=== PATIENT | male | born 1965 | race Caucasian/White ===

== ENCOUNTER 2023-11-10 15:30 | Outpatient (OUT) | payer OTHER, SELFPAY ==
[2023-11-10 16:21] LABS: Basophils Percent Auto 0.5 % (0.2-2.0); Eosinophils Absolute Auto 0.2 10^3/uL (0.0-0.7); Hematocrit 42.3 % (42.0-54.0); Hemoglobin 14.5 g/dL (14.0-18.0); Lymphocytes Absolute Auto 1.1 10^3/uL (1.2-3.8); Lymphocytes Percent Auto 29.1 % (20.5-60.0); Mean Corpuscular HGB Conc 34.3 g/dL (29.9-35.2); Mean Corpuscular Hemoglobin 32.2 pg (25.9-34.0); Mean Corpuscular Volume 93.8 fL (80.0-94.0); Monocytes Absolute Auto 0.6 10^3/uL (0.3-0.8); Monocytes Percent Auto 16.2 % (1.7-12.0); Neutrophils Absolute Auto 1.9 10^3/uL (1.4-6.5); Neutrophils Percent Auto 50.2 % (43.0-75.0); Platelet Count 164 10^3/uL (150-450); Red Blood Count 4.51 10^6/uL (4.70-6.10); Red Cell Distribution Width 11.8 % (11.0-15.0); White Blood Count 3.7 10^3/uL (4.0-11.0)
[2023-11-10 16:49] LABS: Estimated Average Glucose 157 mg/dL; Glycohemoglobin A1C 7.1 % (4.5-6.2)
[2023-11-10 17:01] LABS: Prostate Specific Antigen Scrn 0.48 ng/mL (<=4.00)
[2023-11-10 17:02] LABS: Alanine Aminotransferase 86 U/L (16-63); Alkaline Phosphatase 46 U/L (46-116); Anion Gap 11.1; Aspartate Amino Transferase 42 U/L (15-37); BUN Creatinine Ratio 17.2; Bilirubin Total 0.7 mg/dL (0.2-1.0); Calcium 8.8 mg/dL (8.5-10.1); Carbon Dioxide 28.3 mmol/L (21.0-32.0); Chloride 100 mmol/L (98-107); Chol HDL Ratio 3.3; Cholesterol 170 mg/dL (<=200); Estimated GFR (African America >60 (>=60); Estimated GFR (Non-African Ame >60 (>=60); Free T3 2.66 pg/mL (2.18-3.98); Globulin 3.9 g/dL; Glucose 82 mg/dL (74-106); HDL Cholesterol 52 mg/dL (40-60); LDL Cholesterol Calculated 100.2 mg/dL; Potassium 4.4 mmol/L (3.5-5.1); Sodium 135 mmol/L (136-145); Thyroid Stimulating Hormone 1.583 uIU/mL (0.358-3.740); Total Protein 7.9 g/dL (6.4-8.2); Triglycerides 89 mg/dL (<=150); VLDL CHOLESTEROL 17.8 mg/dL
[2023-11-13 10:07] LABS: Insulin 18.8 uIU/mL (2.6-24.9)
== END 2023-11-10 15:31 | disposition home or self-care (01) ==
PROVIDERS: PCP Family Medicine; Visit Provider Family Medicine
DX: Z00.00 Encounter for general adult medical examination without abnormal findings (principal)
CPT/HCPCS: 36415; 80053; 80061; 83036; 83525; 84436; 84443; 84481; 85025; G0103

== ENCOUNTER 2024-08-22 14:58 | Outpatient (OUT) | payer OTHER, SELFPAY ==
--- OUTSIDE RECORDS SUMMARY | 2024-08-22 15:14 | XMS_ITS | CCD ---
Author Organization [facility] Care Team Providers Care Cigar Making Supervisor Name Role Phone Micha Martinez Unavailable Unavailable Unavailable Giselle Walker Unavailable VITOR ., DR MUSE Admitting Unavailable HOY ., DR MUSE Attending Unavailable HOY ., DR MUSE Primary Care Unavailable HOY ., DR MUSE Consulting Unavailable DUTCH HAMM Consulting Unavailable HOY ., DR MUSE Admitting Unavailable HOY ., DR MUSE Attending Unavailable HOY ., DR MUSE Primary Care Unavailable HOY ., DR MUSE Consulting Unavailable ONI, DR YOLETTE Faust Consulting Unavailable HOY ., DR MUSE Admitting Unavailable HOY ., DR MUSE Attending Unavailable HOY ., DR MUSE Primary Care Unavailable HOY ., DR MUSE Consulting Unavailable HOY ., DR MUSE Admitting Unavailable HOY ., DR MUSE Attending Unavailable HOY ., DR MUSE Primary Care Unavailable HOY ., DR MUSE Consulting Unavailable Maynor COULTER Attending Unavailable Micha Martinez Primary Care Physician Allergies Allergy Classification Reported Allergen(s) Allergy Type Date of Onset Reaction(s) Facility (1 source) No Known Medication Allergies; Translations: [No Known Medication Allergies] Propensity to adverse reactions (disorder) [facility] Medications Current Medications Medication Drug Class(es) Dates Sig (Normalized) Sig (Original) [id number] 200 actuat albuterol 0.09 mg/actuat metered dose inhaler (1 source) beta2-Adrenergic Agonist Start: 2 take 2 puff(s) by inhalation every four to six hours as needed Albuterol Sulfate HFA 108 (90 Base) MCG/ACT 2 puffs as needed Inhalation every 4-6 hours for 14 days Aug, Active dextromethorphan hydrobromide 1.5 mg/ml / pyrilamine maleate 1.5 mg/ml oral solution (1 source) Uncompetitive W-puzssj-[place] te Receptor Antagonist, Sigma-1 Agonist Start: 2 take 10 mL by mouth every eight hours [place] DM 7.5-7.5 MG/5ML 10 mL Orally every 8 hours for 5 days Aug, Active methylPREDNISolone 4 mg oral tablet (1 source) Corticosteroid Start: 2 methylPREDNISolone 4 MG as directed Orally for daily dose take half with breakfast, half with dinner for 6 days Aug, Active Completed/Discontinued Medications Medication Drug Class(es) Dates Sig (Normalized) Sig (Original) Allergy TABS (3 sources) Allergy TABS Osiel ntity: 0 Refills: 0 Ordered: 29-Sep-2021 DO Active Problems Active Problems Problem Classification Problem Date Documented Da te Episodic/Chronic Abdominal pain (4 sources) Left upper quadrant pain; Translations: [LEFT UPPER QUADRANT PAIN] Onset: 12-28-2022 Episodic Acute bronchitis (1 source) Acute bronchitis due to other specified organisms Episodic Diabetes mellitus without complication (1 source) Diabetes mellitus without complication 08-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 Diverticulosis and diverticulitis (1 source) Diverticular disease of colon Onset: 07-11-2011 08-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 Other liver diseases (1 source) Chronic nonalcoholic liver disease Onset: 07-11-2011 08-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 Other nutritional; endocrine; and metabolic disorders (1 source) Body mass index 30+ - obesity 08-21-2024 Chronic Other nutritional; endocrine; and metabolic disorders (1 source) Obesity caused by energy imbalance 08-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 Other screening for suspected conditions (not mental disorders or infectious disease) (2 sources) Encounter for screening for malignant neoplasm of prostate; Translations: [Screening for malignant neoplasm of colon done] Onset: 11-14-2022 Episodic Other upper respiratory disease (5 sources) Nasal congestion; Translations: [Other disease of nasal cavity and sinuses] Episodic Other upper respiratory disease (6 sources) Deviated nasal septum; Translations: [Deviated nasal septum] 08-14-2024 Episodic Other upper respiratory disease (5 sources) Incompetence of nasal valve; Translations: [Other disease of nasal cavity and sinuses] Episodic Other upper respiratory infections (5 sources) Recurrent sinusitis; Translations: [Unspecified sinusitis (chronic)] Chronic Other upper respiratory infections (2 sources) Pain in throat; Translations: [Acute pharyngitis, unspecified] Episodic Residual codes; unclassified (1 source) Sleep apnea 08-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 Unclassified (1 source) Patient encounter status 08-21-2024 Past or Other Problems Problem Classification Problem Date Documented Da te Episodic/Chronic Pleurisy; pneumothorax; pulmonary collapse (4 sources) Pleurisy; Translations: [PLEURISY] Onset: 08-04-2022 Episodic Unclassified (1 source) Contact with and (suspected) exposure to covid-19 Z20.822 Results Test Name Value Interpretation Reference Range Facility US SINGLE QUAD RT UPPERon US SINGLE QUAD RT UPPER EXAM: US SINGLE QUAD RT UPPER HISTORY: .. Pain. COMPARISON: None. TECHNIQUE: Grayscale and color imaging was performed FINDINGS: The pancreas appears normal. Scanning of the liver demonstrates increased echogenicity of liver consistent with fatty infiltration of the liver. In the right lobe liver near the gallbladder fossa there was a small area of hypoechogenicity consistent with focal fatty sparing. Color-flow is noted in the portal and hepatic veins. Common bile duct measures 3 mm. Scanning of the gallbladder demonstrates no stones or sludge. No gallbladder wall thickening is noted. Patient had no pain upon scanning over the gallbladder. Right kidney measures 11.5 x 5.8 x 5.3 cm. Color-flow is noted. No solid renal cortical masses or hydronephrosis is noted. No fluid is noted in the right upper quadrant. IMPRESSION: 1 increased echogenicity of liver consistent with fatty infiltration of the liver. There was a small area of hypoechogenicity in the right lobe liver near the gallbladder fossa most consistent with focal fatty sparing. 2. The remainder of the right upper quadrant was unremarkable. Electronically authenticated by: DUTCH HAMM Date: 2022-12-28 10:37 Normal [facility] [place] 19-9on 12-22-2022 [place] 19-9 11 U/mL Normal 0-35 [facility] Comment on above: Result Comment: [employer] Electrochemiluminescence Immunoassay (ECLIA) . Values obtained with different assay methods or kits cannot be used interchangeably. Results cannot be interpreted as absolute evidence of the presence or absence of malignant disease. Performed By: #### C A 19,9 #### [facility] [address] [place] [address] Dr. Harika Valencia AMYLASEon 12-21-2022 Amylase [Catalytic activity/Vol] 50 U/L Normal 25-115 [facility] Comment on above: Performed By: #### L IPA, CMP, AUNDREA #### [facility] [address] [place] [address] Dr. Harika Valencia CBC AUTO DIFFon 12-21-2022 BASO # 0.0 103/ul Normal 0.0-0.1 [facility] Comment on above: Performed By: #### C BC #### [facility] [address] [place] [address] Dr. Harika Valencia Basophils/100 WBC (Bld) 0.4 % Normal 0.2-2.0 [facility] Comment on above: Performed By: #### C BC #### [facility] [address] [place] [address] Dr. Harika Valencia EO # 0.1 103/ul Normal 0.0-0.7 [facility] Comment on above: Performed By: #### C BC #### [facility] [address] [place] [address] Dr. Harika Valencia Eosinophils/100 WBC (Bld) 1.6 % Normal 0.9-7.0 [facility] Comment on above: Performed By: #### C BC #### [facility] [address] [place] [address] Dr. Harika Valencia Erythrocyte distribution width (RBC) [Ratio] 12.0 % Normal 11.0-15.0 [facility] Comment on above: Performed By: #### C BC #### [facility] [address] [place] [address] Dr. Harika Valencia Hematocrit (Bld) [Volume fraction] 46.4 % Normal 42.0-54.0 [facility] Comment on above: Performed By: #### C BC #### [facility] [address] [place] [address] Dr. Harika Valencia Hemoglobin (Bld) [Mass/Vol] 15.2 g/dL Normal 14.0-18.0 [facility] Comment on above: Performed By: #### C BC #### [facility] [address] [place] [address] Dr. Harika Valencia IG # 0.01 10e3/ul Normal 0.00-0.03 [facility] Comment on above: Performed By: #### C BC #### [facility] [address] [place] [address] Dr. Harika Valencia IG % 0.2 % Normal 0.0-0.5 [facility] Comment on above: Performed By: #### C BC #### [facility] [address] [place] [address] Dr. Harika Valencia LYMPH # 1.8 103/ul Normal 1.2-3.8 [facility] Comment on above: Performed By: #### C BC #### [facility] [address] [place] [address] Dr. Harika Valencia Lymphocytes/100 WBC (Bld) 35.1 % Normal 20.5-60.0 [facility] Comment on above: Performed By: #### C BC #### [facility] [address] [place] [address] Dr. Harika Valencia MANUAL DIFF REQ NO Normal [facility] Comment on above: Performed By: #### C BC #### [facility] [address] [place] [address] Dr. Harika Valencia MCH (RBC) [Entitic mass] 31.5 pg Normal 25.9-34.0 [facility] Comment on above: Performed By: #### C BC #### [facility] [address] [place] [address] Dr. Harika Valencia MCHC (RBC) [Mass/Vol] 32.8 g/dL Normal 29.9-35.2 [facility] Comment on above: Performed By: #### C BC #### [facility] [address] [place] [address] Dr. Harika Valencia MCV (RBC) [Entitic vol] 96.1 fL Critically high 80.0-94.0 [facility] Comment on above: Performed By: #### C BC #### [facility] [address] [address] [address] Harika Valencia MONO # 0.4 103/ul Normal 0.3-0.8 [facility] Comment on above: Performed By: #### C BC #### [facility] [address] [address] [address] Harika Valencia Monocytes/100 WBC (Bld) 8.0 % Normal 1.7-12.0 [facility] Comment on above: Performed By: #### C BC #### [facility] [address] [place] [address] Dr. Harika Valencia NEUT # 2.8 103/ul Normal 1.4-6.5 [facility] Comment on above: Performed By: #### C BC #### [facility] [address] [place] [address] Dr. Harika Valencia Neutrophils/100 WBC (Bld) 54.7 % Normal 43.0-75.0 [facility] Comment on above: Performed By: #### C BC #### [facility] [address] [place] [address] Dr. Harika Valencia Platelet mean volume (Bld) [Entitic vol] 8.8 fL Critically low 9.5-13.5 [facility] Comment on above: Performed By: #### C BC #### [facility] [address] [place] [address] Dr. Harika Valencia PLT 201 103/ul Normal 150-450 [facility] Comment on above: Performed By: #### C BC #### [facility] [address] [place] [address] Dr. Harika Valencia RBC 4.83 106/ul Normal 4.70-6.10 [facility] Comment on above: Performed By: #### C BC #### [facility] [address] [place] [address] Dr. Harika Valencia WBC 5.1 103/ul Normal 4.0-11.0 [facility] Comment on above: Performed By: #### C BC #### [facility] [address] [address] [address] Harika Valencia LIPASEon 12-21-2022 Lipase [Catalytic activity/Vol] 129.0 U/L Normal 73.0-393.0 [facility] Comment on above: Performed By: #### L IPA, CMP, AUNDREA #### [facility] [address] [place] [address] Dr. Harika Valencia PROF 14(COMP METB)on 023 Albumin [Mass/Vol] 4.1 g/dL Normal 3.4-5.0 [facility] Comment on above: Performed By: #### L IPA, CMP, AUNDREA #### [facility] [address] [place] [address] Dr. Harika Valencia Albumin/Globulin [Mass ratio] 1.0 {ratio} Normal [facility] Comment on above: Performed By: #### L IPA, CMP, AUNDREA #### [facility] [address] [place] [address] Dr. Harika Valencia ALP [Catalytic activity/Vol] 55 U/L Normal 46-116 [facility] Comment on above: Performed By: #### L IPA, CMP, AUNDREA #### [facility] [address] [place] [address] Dr. Harika Valencia ALT [Catalytic activity/Vol] 62 U/L Normal 16-63 [facility] Comment on above: Performed By: #### L IPA, CMP, AUNDREA #### [facility] [address] [place] [address] Dr. Harika Valencia Anion gap [Moles/Vol] 12.4 mmol/L Normal [facility] Comment on above: Performed By: #### L IPA, CMP, AUNDREA #### [facility] [address] [place] [address] Dr. Harika Valencia AST [Catalytic activity/Vol] 34 U/L Normal 15-37 [facility] Comment on above: Performed By: #### L IPA, CMP, AUNDREA #### [facility] [address] [place] [address] Dr. Harika Valencia Bilirubin [Mass/Vol] 0.7 mg/dL Normal 0.2-1.0 [facility] Comment on above: Performed By: #### L IPA, CMP, AUNDREA #### [facility] [address] [place] [address] Dr. Harika Valencia Calcium [Mass/Vol] 9.3 mg/dL Normal 8.5-10.1 [facility] Comment on above: Performed By: #### L IPA, CMP, AUNDREA #### [facility] [address] [place] [address] Dr. Harika Valencia Chloride [Moles/Vol] 100 mmol/L Normal 98-107 [facility] Comment on above: Performed By: #### L IPA, CMP, AUNDREA #### [facility] [address] [place] [address] Dr. Harika Valencia CO2 [Moles/Vol] 27.6 mmol/L Normal 21.0-32.0 [facility] Comment on above: Performed By: #### L IPA, CMP, AUNDREA #### [facility] [address] [place] [address] Dr. Harika Valencia Creatinine [Mass/Vol] 0.83 mg/dL Normal 0.70-1.30 [facility] Comment on above: Performed By: #### L IPA, CMP, AUNDREA #### [facility] [address] [place] [address] Dr. Harika Valencia EGFR-AF [place]ER >60 Normal >=60 [facility] Comment on above: Performed By: #### L IPA, CMP, AUNDREA #### [facility] [address] [place] [address] Dr. Harika Valencia EGFR-NON AF [place]ER >60 Normal >=60 [facility] Comment on above: Performed By: #### L IPA, CMP, AUNDREA #### [facility] [address] [place] [address] Dr. Harika Valencia Globulin (S) [Mass/Vol] 4.0 g/dL Normal [facility] Comment on above: Performed By: #### L IPA, CMP, AUNDREA #### [facility] [address] [place] [address] Dr. Harika Valencia Glucose [Mass/Vol] 98 mg/dL Normal 74-106 [facility] Comment on above: Performed By: #### L IPA, CMP, AUNDREA #### [facility] [address] [place] [address] Dr. Harika Valencia Potassium [Moles/Vol] 4.0 mmol/L Normal 3.5-5.1 [facility] Comment on above: Performed By: #### L IPA, CMP, AUNDREA #### [facility] [address] [place] [address] Dr. Harika Valencia Protein [Mass/Vol] 8.1 g/dL Normal 6.4-8.2 [facility] Comment on above: Performed By: #### L IPA CMP, AUNDREA #### [facility] [address] [place] [address] Dr. Harika Valencia Sodium [Moles/Vol] 136 mmol/L Normal 136-145 [facility] Comment on above: Performed By: #### L IPA, CMP, AUNDREA #### [facility] [address] [place] [address] Dr. Harika Valencia Urea nitrogen [Mass/Vol] 15.0 mg/dL Normal 7.0-18.0 [facility] Comment on above: Performed By: #### L IPA CMP, AUNDREA #### [facility] [address] [place] [address] Dr. Harika Valencia Urea nitrogen/Creatinin e [Mass ratio] 18.1 mg/mg Normal [facility] Comment on above: Performed By: #### L IPA, CMP, AUNDREA #### [facility] [address] [place] [address] Dr. Harika Valencia INSULINon 11-11-2022 Insulin 24.7 uIU/mL Normal 2.6-24.9 [facility] Comment on above: Performed By: #### I NSULIN ####[facility] [address] [address]Dr. Harika Valencia CBC AUTO DIFFon 11-10-2022 BASO # 0.0 103/ul Normal 0.0-0.1 [facility] Comment on above: Performed By: #### C BC #### [facility] [address] [place] [address] Dr. Harika Valencia Basophils/100 WBC (Bld) 0.4 % Normal 0.2-2.0 [facility] Comment on above: Performed By: #### C BC #### [facility] [address] [place] [address] Dr. Harika Valencia EO # 0.1 103/ul Normal 0.0-0.7 [facility] Comment on above: Performed By: #### C BC #### [facility] [address] [place] [address] Dr. Harika Valencia Eosinophils/100 WBC (Bld) 2.2 % Normal 0.9-7.0 [facility] Comment on above: Performed By: #### C BC #### [facility] [address] [place] [address] Dr. Harika Valencia Erythrocyte distribution width (RBC) [Ratio] 12.0 % Normal 11.0-15.0 [facility] Comment on above: Performed By: #### C BC #### [facility] [address] [place] [address] Dr. Harika Valencia Hematocrit (Bld) [Volume fraction] 41.2 % Critically low 42.0-54.0 [facility] Comment on above: Performed By: #### C BC #### [facility] [address] [place] [address] Dr. Harika Valencia Hemoglobin (Bld) [Mass/Vol] 14.2 g/dL Normal 14.0-18.0 [facility] Comment on above: Performed By: #### C BC #### [facility] [address] [place] [address] Dr. Harika Valencia IG # 0.02 10e3/ul Normal 0.00-0.03 [facility] Comment on above: Performed By: #### C BC #### [facility] [address] [place] [address] Dr. Harika Valencia IG % 0.4 % Normal 0.0-0.5 [facility] Comment on above: Performed By: #### C BC #### [facility] [address] [address] [address] Harika Valencia LYMPH # 1.7 103/ul Normal 1.2-3.8 [facility] Comment on above: Performed By: #### C BC #### [facility] [address] [address] [address] Harika Valencia Lymphocytes/100 WBC (Bld) 37.4 % Normal 20.5-60.0 [facility] Comment on above: Performed By: #### C BC #### [facility] [address] [place] [address] Dr. Harika Valencia MANUAL DIFF REQ NO Normal [facility] Comment on above: Performed By: #### C BC #### [facility] [address] [place] [address] Dr. Harika Valnecia MCH (RBC) [Entitic mass] 31.0 pg Normal 25.9-34.0 [facility] Comment on above: Performed By: #### C BC #### [facility] [address] [place] [address] Dr. Harika Valencia MCHC (RBC) [Mass/Vol] 34.5 g/dL Normal 29.9-35.2 [facility] Comment on above: Performed By: #### C BC #### [facility] [address] [place] [address] Dr. Harika Valencia MCV (RBC) [Entitic vol] 90.0 fL Normal 80.0-94.0 [facility] Comment on above: Performed By: #### C BC #### [facility] [address] [place] [address] Dr. Harika Valencia MONO # 0.5 103/ul Normal 0.3-0.8 [facility] Comment on above: Performed By: #### C BC #### [facility] [address] [place] [address] Dr. Harika Valencia Monocytes/100 WBC (Bld) 11.1 % Normal 1.7-12.0 [facility] Comment on above: Performed By: #### C BC #### [facility] [address] [address] [address] Harika Valencia NEUT # 2.2 103/ul Normal 1.4-6.5 [facility] Comment on above: Performed By: #### C BC #### [facility] [address] [address] [address] Harika Valencia Neutrophils/100 WBC (Bld) 48.5 % Normal 43.0-75.0 [facility] Comment on above: Performed By: #### C BC #### [facility] [address] [address] [address] Harika Valencia Platelet mean volume (Bld) [Entitic vol] 9.1 fL Critically low 9.5-13.5 [facility] Comment on above: Performed By: #### C BC #### [facility] [address] [address] [address] Harika Valencia PLT 189 103/ul Normal 150-450 [facility] Comment on above: Performed By: #### C BC #### [facility] [address] [address] [address] Harika Valencia RBC 4.58 106/ul Critically low 4.70-6.10 [facility] Comment on above: Performed By: #### C BC #### [facility] [address] [address] [address] Harika Valencia WBC 4.5 103/ul Normal 4.0-11.0 [facility] [facility] [place] Comment on above: Performed By: #### C BC #### [facility] [place] Laboratory [address] [address] [address] Harika Valencia FREE THYROXINE INDEX T7on FTI 1.86 Normal 1.30-4.50 [facility] [place] Comment on above: Performed By: #### T SH, T7, CMP, URIC, LIPID ####[facility] [place] [address] [id number]. Harika Valencia T3U 32.0 % Critically low 33.0-40.0 [facility] Comment on above: Performed By: #### T SH, T7, CMP, URIC, LIPID ####[facility] [place] [address] [place], [place] [address]AjDr. Harika Valencia T4 [Mass/Vol] 5.80 ug/dL Normal 4.50-12.10 [facility] Comment on above: Performed By: #### T SH, T7, CMP, URIC, LIPID ####[facility] [place] [address] [place], [place] [address]KvDr. Harika Valencia GLYCOHEMOGLOBIN A1Con 2021 ADA RECOMMENDATION SEE BELOW Normal [facility] Comment on above: Result Comment: ADA RECOMMENDED LIMIT 4.0 - 6.0 ADA THERAPEUTIC TARGET < 7.0 ACTION SUGGESTED > 7.0 Performed By: #### A 1C #### [facility] [place] Laboratory [address] [address] [address] Harika Valencia Glucose [Mass/Vol] 143 mg/dL Normal [facility] Comment on above: Performed By: #### A 1C #### [facility] [place] Laboratory [address] [address] [address] Harika Valencia HbA1c (Bld) [Mass fraction] 6.6 % Critically high 4.5-6.2 [facility] Comment on above: Performed By: #### A 1C #### [facility] [place] Laboratory [address] [address] [address] Harika Valencia LIPID PROFILEon 11-10-2022 CHOL-HDL RATIO NORM SEE BELOW Normal [facility] Comment on above: Result Comment: 3.3 - 4.4 LOW RISK 4.4 - 7.1 AVERAGE RISK 7.1 - 11.0 MODERATE RISK >11.0 HIGH RISK Performed By: #### T SH, T7, CMP, URIC, LIPID ####[facility] [place] [address] [place], [place] [address]IcDr. Harika Valencia Cholesterol [Mass/Vol] 174 mg/dL Normal <=200 [facility] [place] Comment on above: Performed By: #### T SH, T7, CMP, URIC, LIPID ####[facility] [place] [address] [place], [place] [address]IzDr. Harika Valencia Cholesterol in HDL [Mass/Vol] 52 mg/dL Normal 40-60 [facility] Comment on above: Performed By: #### T SH, T7, CMP, URIC, LIPID ####[facility] [place] [address] [id number]. Harika Valencia Cholesterol in LDL [Mass/Vol] 95.6 mg/dL Normal [facility] [place] Comment on above: Performed By: #### T SH, T7, CMP, URIC, LIPID ####[facility] [place] [address] [id number]. Harika Valencia Cholesterol.total/ Cholesterol in HDL [Mass ratio] 3.3 {ratio} Normal [facility] [place] Comment on above: Performed By: #### T SH, T7, CMP, URIC, LIPID ####[facility] [place] [address] [phone]. Harika Valencia HDL NORMAL > or = 60 mg/dl - LO W CARDIOVASCULAR RISK <40 mg/dl - HIGH CARDIOVASCULAR RISK Normal [facility] Comment on above: Performed By: #### T SH, T7, CMP, URIC, LIPID ####[facility] [place] [address] [address]Dr. Harika Valencia LDL CALC NORMAL SEE BELOW Normal [facility] Comment on above: Result Comment: <100 mg/dl OPTIMAL 100 - 129 mg/dl NEAR OR ABOVE OPTIMAL 130 - 159 mg/dl BORDERLINE HIGH 160 - 189 mg/dl HIGH >190 mg/dl VERY HIGH Performed By: #### T SH, T7, CMP, URIC, LIPID ####[facility] [place] [address] [id number]. Harika Valencia Triglyceride [Mass/Vol] 132 mg/dL Normal <=150 [facility] [place] Comment on above: Performed By: #### T SH, T7, CMP, URIC, LIPID ####[facility] [place] [address] [phone]. Harika Valencia VLDL CALC 26.4 mg/dL Normal [facility] [place] Comment on above: Performed By: #### T SH, T7, CMP, URIC, LIPID ####[facility] [place] [address] [phone]. Harika Valencia PROF 14(COMP METB)on 022 Albumin [Mass/Vol] 3.8 g/dL Normal 3.4-5.0 [facility] Comment on above: Performed By: #### T SH, T7, CMP, URIC, LIPID ####[facility] [place] [address] [address]Dr. Harika Valencia Albumin/Globulin [Mass ratio] 1.0 {ratio} Normal [facility] Comment on above: Performed By: #### T SH, T7, CMP, URIC, LIPID ####[facility] [place] [address] [address]Dr. Leigh Annave Valencia ALP [Catalytic activity/Vol] 44 U/L Critically low 46-116 [facility] [place] Comment on above: Performed By: #### T SH, T7, CMP, URIC, LIPID ####[facility] [place] [address] [place], [place] [address]Dr. Harika Valencia ALT [Catalytic activity/Vol] 55 U/L Normal 16-63 [facility] [place] Comment on above: Performed By: #### T SH, T7, CMP, URIC, LIPID ####[facility] [place] [address] [place], [place] [address]Dr. Harika Valencia Anion gap [Moles/Vol] 12.8 mmol/L Normal [facility] [place] Comment on above: Performed By: #### T SH, T7, CMP, URIC, LIPID ####[facility] [place] [address] [address]Dr. Harika Valencia AST [Catalytic activity/Vol] 26 U/L Normal 15-37 [facility] [place] Comment on above: Performed By: #### T SH, T7, CMP, URIC, LIPID ####[facility] [place] [address] [place], [place] [address]Dr. Harika Valencia Bilirubin [Mass/Vol] 0.5 mg/dL Normal 0.2-1.0 [facility] [place] Comment on above: Performed By: #### T SH, T7, CMP, URIC, LIPID ####[facility] [place] [address] [address]Dr. Harika Valencia Calcium [Mass/Vol] 9.0 mg/dL Normal 8.5-10.1 [facility] Comment on above: Performed By: #### T SH, T7, CMP, URIC, LIPID ####[facility] [place] [address] [address]Dr. Harika Valencia Chloride [Moles/Vol] 103 mmol/L Normal 98-107 [facility] [place] Comment on above: Performed By: #### T SH, T7, CMP, URIC, LIPID ####[facility] [place] [address] [address]Dr. Harika Valencia CO2 [Moles/Vol] 27.2 mmol/L Normal 21.0-32.0 [facility] Comment on above: Performed By: #### T SH, T7, CMP, URIC, LIPID ####[facility] [place] [address] [address]Dr. Harika Valencia Creatinine [Mass/Vol] 0.79 mg/dL Normal 0.70-1.30 [facility] Comment on above: Performed By: #### T SH, T7, CMP, URIC, LIPID ####[facility] [place] [address] [place], [place] [address]Dr. Harika Valencia EGFR-AF COOK ISLANDER >60 Normal >=60 [facility] Comment on above: Performed By: #### T SH, T7, CMP, URIC, LIPID ####[facility] [place] [address] [place], [place] [address]Dr. Harika Valencia EGFR-NON AF COOK ISLANDER >60 Normal >=60 [facility] Comment on above: Performed By: #### T SH, T7, CMP, URIC, LIPID ####[facility] [place] [address] [address]Dr. Harika Valencia Globulin (S) [Mass/Vol] 3.8 g/dL Normal [facility] [place] Comment on above: Performed By: #### T SH, T7, CMP, URIC, LIPID ####[facility] [place] [address] [address]Dr. Harika Valencia Glucose [Mass/Vol] 117 mg/dL Critically high 74-106 [facility] Comment on above: Performed By: #### T SH, T7, CMP, URIC, LIPID ####[facility] [place] [address] [phone]. Harika Valencia Potassium [Moles/Vol] 4.0 mmol/L Normal 3.5-5.1 [facility] [place] Comment on above: Performed By: #### T SH, T7, CMP, URIC, LIPID ####[facility] [place] [address] [address]Dr. Harika Valencia Protein [Mass/Vol] 7.6 g/dL Normal 6.4-8.2 [facility] Comment on above: Performed By: #### T SH, T7, CMP, URIC, LIPID ####[facility] [place] [address] [address]Dr. Harika Valencia Sodium [Moles/Vol] 139 mmol/L Normal 136-145 [facility] Comment on above: Performed By: #### T SH, T7, CMP, URIC, LIPID ####[facility] [place] [address] [address]Dr. Harika Valencia Urea nitrogen [Mass/Vol] 14.0 mg/dL Normal 7.0-18.0 [facility] [place] Comment on above: Performed By: #### T SH, T7, CMP, URIC, LIPID ####[facility] [place] [address] [address]Dr. Harika Valencia Urea nitrogen/Creatinin e [Mass ratio] 17.7 mg/mg Normal [facility] [place] Comment on above: Performed By: #### T SH, T7, CMP, URIC, LIPID ####[facility] [place] [address] [address]Dr. Harika Valencia TSHon 11-10-2022 TSH 2.508 uIU/mL Normal 0.358-3.740 [facility] Comment on above: Performed By: #### T SH, T7, CMP, URIC, LIPID ####[facility] [place] [address] [address]Dr. Harika Valencia URIC ACID SERUMon 11-10-2022 Urate [Mass/Vol] 5.0 mg/dL Normal 3.5-7.2 [facility] Comment on above: Performed By: #### T SH, T7, CMP, URIC, LIPID ####[facility] [place] [address] [place], [place] [address]BpKayden Valencia COVID/FLU/RSV RT-PCRon 09-10 SARS-CoV-2 (COVID-19) RNA ERIBERTO+probe Ql (Unsp spec) Negative nuPSYS Other COVID/FLU/RSV RT-PCR Negative nuPSYS Other Quick Strepon 09-10-2022 S. pyogenes Org specific cx Ql (Throat) Negative nuPSYS Other Quick Strep nuPSYS Other XR CHEST 2 Von 08-04-2022 XR CHEST 2 V EXAMINATION: XR CHES T 2 V HISTORY: Pleurisy , chest pain, cough COMPARISON: No relevant comparison available. FINDINGS: LUNGS: No significant pulmonary parenchymal abnormalities. VASCULATURE: No increased pulmonary vasculature. PLEURA: No pneumothorax, effusion, or pleural thickening. CARDIAC: No cardiomegaly or cardiac silhouette abnormality. MEDIASTINUM: No visible mass or adenopathy. BONES: No fracture or visible bone lesion. OTHER: Negative. IMPRESSION: 1. No acute cardiopulmonary process. Electronically authenticated by: YOLETTE BUNN Date: 2022-08-04 11:52 Normal [facility] [place] Initial Visit (Otolaryngolog y)on 11-10-2021 Initial Visit (Otolaryngology) Diagnoses/Problems Nasal septal deviation (470) (J34.2) History of Present Illness doing well. 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) Recurrent sinusitis (473.9) (J32.9) Allergies No Known Drug Allergies Recorded By: Felipa Valentin; 09/29/2021 9:27:24 AM Current Meds Medication NameInstruction Allergy TABS OneTouch Delica Plus Yqgpqf16J OneTouch Verio In Vitro Strip Vitals Vital Signs Recorded: [id number] 04:01PM Izrbtfhdwho02.7 C Height5 ft 10 in Xqzjqu834 lb BMI Emqmyufufm62.73 kg/m2 BSA Calculated2.29 Tobacco Useb) No Fall Screeninga) No falls within the last year 'Scores and Scales' Signatures Electronically signed by : Marco Antonio Kang MD; Nov 12 2021 2:08PM EST (Author) Normal [employer] Tobacco Screening.on Fall risk assessment a) No falls within the last year [facility] Work Phone: Tobacco use status CP b) No [facility] Work Phone: Established Visit (Otolaryng ology)on 09-29-2021 Established Visit (Otolaryngology) Diagnoses/Problems Nasal septal deviation (470) (J34.2) Chief Complaint POV surgery 09/22 History of Present Illnessdoing well. here for splint removal. 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) Recurrent sinusitis (473.9) (J32.9) Allergies No Known Drug Allergies Recorded By: Felipa Valentin; 09/29/2021 9:27:24 AM Current Meds Medication NameInstruction Allergy TABS Vitals Vital Signs Recorded: 29Sep2021 09:26AM Iybsgcxnysf90.4 F Ctummelarlu03 Height5 ft 10 in Nmsgmh174 lb 1.98 oz BMI Zzqyojhvll09.03 kg/m2 BSA Calculated2.3 Tobacco Useb) No Fall Screeninga) No falls within the last year 'Scores and Scales' Signatures Electronically signed by : Marco Antonio Kang MD; Sep 29 2021 10:25AM EST (Author) Normal [employer] Tobacco Screening.on Fall risk assessment a) No falls within the last year [facility] Work Phone: Tobacco use status CPHS b) No [facility] Work Phone: Order Reconciliationon 09-22 Order Reconciliation Page 1 Discharge Reconciliation Document Reconciliation Type: Discharge requested on behalf of Marco Antonio Kang (Physician) done by Marco Antonio Kang) Discharge - Reconciliation: 22-Sep-2021 07:38 by: Marco Antonio Kang) Home Medications Added During Discharge Reconciliation Additional Patient Instructions Additional post-operative instructions were given to the patient by the provider in the pre-op office visit Additional Patient Instructions Do not consume alcoholic beverages for 24 hours. Additional Patient Instructions Do not make important decisions or sign any important documents for the next 24 hours. Additional Patient Instructions Do not smoke for 24 hours. Additional Patient Instructions It is recommended that a responsible adult remain with you for the next 24 hours as you may be light headed/dizzy. Additional Patient Instructions Keep Surgical incision dry and clean. Call Physician For: excessive bleeding (slow general oozing that completely soaks dressing or fresh bright red bleeding) or bleeding that will not stop. Apply pressure to the area and elevate. Call Physician For: if the arm or leg operated on has a change in color, numbness or tingling coldness to the touch or excessive pain. Call Physician For: inability to urinate every 8-12 hours and your bladder becomes too full or painful. Call Physician For: persistant nausea and/or vomiting Over 24 hours Call Physician For: signs and sypmtoms of infection Increased redness or swelling at incision site, increased pain/tenderness at surgical site, increased temperature greater than 100 degress, increasing and/or progressive drainage from surgical site, and/or unusual odor from surgical site. cephalexin 250 mg oral capsule 1 cap(s) orally 3 times a day Diet Regular Discharge Discharge Diagnosis< J34.89 Nasal obstruction Discharge Provider, Marco Antonio Kang Discharge Disposition : .Home Condition at Discharge: Satisfactory Discharge Communication Instructions for Nursing Only: Remove IV prior to discharge from hospital. Do not remove any midline, if present, without an order from the provider. Discharge Instructions - PHR After your discharge from the hospital, two Summary of Care Documents will be available online in your Personal Health Record (PHR). 1.Consolidated-Clinical Document Architecture (C-CDA) Patient Discharge Summary This document is a summary of your hospital stay to be kept for your reference.2.C-CDA Visit Summary This document is a summary of your hospital stay to be shared with your follow-up providers (doctor, as400 analyst, physical therapist, etc.). Follow Up with with physician in [address] or operate motor vehicles for 24 hours. [place] 0.65% nasal spray 2 spray(s) intranasally every 2 hours ondansetron 4 mg oral tablet 1 tab(s) orally every 8 hours, As Needed for nausea oxyCODONE 5 mg oral tablet 1 tab(s) orally every 6 hours, As Needed for pain Post Procedure Discharge Criteria Criteria: Easily arousable / responding appropriately; Significant complications are absent; SpO2 = or > 92%, or if SpO2 < 92%, maintains within 2% of baseline; Vital signs +/- 20% of preprocedure status; Ambulates without dizziness / age appropriate activity and ambulatory status returns to pre-procedure baseline. All Active Home Medications at time of Discharge Reconciliation: 22-Sep-2021 07:38 Additional Patient Instructions Additional post-operative instructions were given to the patient by the provider in the pre-op office visit Additional Patient Instructions Do not consume alcoholic beverages for 24 hours. Additional Patient Instructions Do not make important decisions or sign any important documents for the next 24 hours. Additional Patient Instructions Do not smoke for 24 hours. Additional Patient Instructions It is recommended that a responsible adult remain with you for the next 24 hours as you may be light headed/dizzy. Additional Patient Instructions Keep Surgical incision dry and clean. Call Physician For: excessive bleeding (slow general oozing that completely soaks dressing or fresh bright red bleeding) or bleeding that will not stop. Apply pressure to the area and elevate. Call Physician For: if the arm or leg operated on has a change in color, numbness or tingling coldness to the touch or excessive pain. Call Physician For: inability to urinate every 8-12 hours and your bladder becomes too full or painful. Call Physician For: persistant nausea and/or vomiting Over 24 hours Call Physician For: signs and sypmtoms of infection Increased redness or swelling at incision site, increased pain/tenderness at surgical site, increased temperature greater than 100 degress, increasing and/or progressive drainage from surgical site, and/or unusual odor from surgical site. cephalexin 250 mg oral capsule 1 cap(s) orally 3 times a day Diet Regular Discharge Discharge D (more content not included)... Normal [facility] CORONAVIRUS 2019, SCREEN ASY MPTOMATICon 09-20-2021 SARS-CoV-2 (COVID-19) RNA ERIBERTO+probe Ql (Unsp spec) Not detected Normal Not Detected [facility] Comment on above: Result Comment: . This assay is designed to detect the N, ORF1ab and/or S genes of SARS-CoV-2 via nucleic acid amplification. A Negative (NOT DETECTED) result does not preclude 2019-nCoV infection since the adequacy of sample collection and/or low viral burden may result in presence of viral nucleic acids below the clinical sensitivity of this test method. Negative (NOT DETECTED) result should not be used as the sole basis for treatment or other patient management decisions. Rather negative results should be combined with clinical observations, patient history, and epidemiological information to make patient management decisions. Fact sheet for providers: https://www.fda.gov/media/613334/download Fact sheet for patients: https://www.fda.gov/media/263266/download This test has received FDA Emergency Use Authorization (EUA) and has been verified by [facility] ([facility]). This test is only authorized for the duration of time that circumstances exist to justify the authorization of the emergency use of in vitro diagnostic tests for the detection of SARS-CoV-2 virus and/or diagnosis of COVID-19 infection under section 564(b)(1) of the Act, 21 U.S.C. 360bbb-3(b)(1), unless the authorization is terminated or revoked sooner. [facility] is certified under CLIA-88 as qualified to perform high complexity testing. Testing is performed in the [facility] laboratories located at [address] [place] [address]. Performed By: #### C OVSC #### [address] [place] [address] Lab Specimen Source Nasal, Nasopharyngeal Normal [facility] Comment on above: Performed By: #### C OVSC #### [address] [place] [address] Coronavirus 2019 RNA by PCR, Screening Asymptomticon 09-20-2021 Coronavirus 2019 RNA by PCR, Screening Asymptomtic Not detected Normal See Below [facility] Work Phone: Comment on above: SOURCE: Nasal, Nasop haryngealReference Range: Not Detected.This assay is designed to detect the N, ORF1ab and/or S genes of SARS-CoV-2 via nucleic acid amplification. A Negative (NOT DETECTED) result does not preclude 2019-nCoV infection since the adequacy of sample collection and/or low viral burden may result in presence of viral nucleic acids below the clinical sensitivity of this test method. Negative (NOT DETECTED) result should not be used as the sole basis for treatment or other patient management decisions. Rather negative results should be combined with clinical observations, patient history, and epidemiological information to make patient management decisions.Fact sheet for providers: https://www.fda.gov/media/162023/downloadFact sheet for patients: https://www.fda.gov/media/451608/downloadThis test has received FDA Emergency Use Authorization (EUA) and has been verified by [facility] ([facility]). This test is only authorized for the duration of time that circumstances exist to justify the authorization of the emergency use of in vitro diagnostic tests for the detection of SARS-CoV-2 virus and/or diagnosis of COVID-19 infection under section 564(b)(1) of the Act, 21 U.S.C. 360bbb-3(b)(1), unless the authorization is terminated or revoked sooner. [facility] is certified under CLIA-88 as qualified to perform high complexity testing. Testing is performed in the [facility] laboratories located at [address] [place] [address]. Covid 19 Resultson SARS-CoV-2 (COVID-19) RNA ERIBERTO+probe Ql (Unsp spec) NEGATIVE COVID-19 Test Coronaviruses are common world-wide and are the cause of many common colds. SARS-COV2 is a new coronavirus that began circulating worldwide in 2019 so we are calling it COVID-19. It has been estimated that four out of five patients with COVID-19 will recover at home without the need for medical attention. Symptoms of COVID-19 may include cough, fever, shortness of breath, loss of taste or smell and other flu-like symptoms including chills, sore muscles, sore throat, and headache. Severe illness is more common in older people and people with other health problems such as high blood pressure, obesity, and immune system problems. If the test is positive, you have COVID-19. You will be contacted by the ordering physicians office and instructed to remain on home isolation, in accordance with CDC guidelines. You may also be contacted by the [place] [facility] to see if any of your close contacts may have been exposed to the virus and need to quarantine. If the test is negative, you likely do not have COVID-19 at this time, but you still may have a different illness that can spread to other people (like Influenza, or the Flu) and could still be at risk for getting COVID-19. We recommend that you stay away from other people to limit the spread of illness until your symptoms are improving and you are fever-free for 24 hours without the use of fever lowering medications such as acetaminophen or ibuprofen. No test is 100% accurate so if you are still concerned you may have COVID-19, talk to your doctor about the need to continue to stay away from others. Medicines Unless your provider told you not to use the following: Acetaminophen (Tylenol and others) is generally safe. Anti-inflammatory medications, such as Ibuprofen (Advil or Motrin) or Naproxen (Aleve) can also be used. Nabj-rgr-haybnvv cough and cold medicines can be used according to the instructions on the package. Some jdbc-omw-maulrpv medicines also contain acetaminophen. Make sure you are not taking more than your recommended dose. For those not hospitalized, there is no specific treatment available for this illness. Antibiotics do not treat Coronaviruses. Follow-Up Follow up with your doctor by scheduling a virtual visit or consider follow-up at one of our urgent care fever clinics. If you are having difficulty breathing, or are very weak and having difficulty standing, this is a medical emergency. Call 911 or have someone take you to the nearest emergency room immediately. If possible, wear a facemask. Additional guidance from the CDC for patients who tested POSITIVE for COVID-19 How to isolate: Isolate yourself in a specific room at home and limit your contact with others. Use a separate bathroom from other members of the household, when possible. Leave home only to get essential medical care. Do not go to work, school or public areas. Avoid using public transportation, ride-sharing, or taxis. Restrict contact with pets and other animals. If you must care for your pet or be around animals while you are sick, wash your hands before and after your interaction and wear a facemask. Make sure that shared spaces in the home have good airflow, such as by an air conditioner or an opened window, weather permitting. Personal Hygiene Procedures: Wear a face mask when in the same room as other people or pets. If a face mask interferes with your breathing, others should wear a mask when sharing space with you. Frequent hand-washing: wash your hands with soap and water for at least 20 seconds. If soap and water are not available, use alcohol-based hand factory representative. Avoid touching your eyes, nose, and mouth with unwashed hands. Household Hygiene Procedures: Avoid sharing personal household items such as dishes, glassware, cups, eating utensils, towels or bedding with other people or pets in your home. After use, these items should be washed with soap and hot water. Disinfect all high-touch surfaces every day with antibacterial cleaning solutions such as Lysol wipes, bleach, cleansers, etc. High-touch surfaces include tabletops, doorknobs, bathroom fixtures, toilets, phones, keyboards, tablets and bedside tables. Immediately clean any surfaces that may have blood, poop or body fluids on them, using antibacterial cleaning solutions such as Lysol wipes, bleach, cleansers, etc. If clothing or bedding come into contact with blood, poop or body fluids, they should be washed immediately. Follow the directions on the laundry detergent and clothing labels but hot water is recommended when possible. Stopping home isolation precautions: If possible, consult your doctor before stopping home isolation precautions. According to the CDC, you can discontinue home isolation precautions when you have met both of these criteria: Your fever and respiratory symptoms have been gone for 24 raul (more content not included)... Normal [facility] Patient Profile - Preop v3on 09-10-2021 Patient Profile - Preop v3 Patient Profile - Preop: Initial Info: Patient DemographicsName: PASCUAL ARNOLD Date: 1965 Address: [address] [place] [address] Date/Time [id number] 11:22 Primary Phone [phone] Call Attemptedleft message Instructions Givenanticoagulant meds - patient advised to consult ordering provider, appropriate clothing, bring glasses/contacts case, bring hearing aid(s), bring list of medications, bring responsible adult as the driver's license reviewing officer (procedure may be cancelled if no driver's license reviewing officer), time to arrive, remove jewerly/piercings, insurance information, diabetes meds - patient advised to consult ordering provider, center location How to be Addressedkevin Spoken Language PreferredEnglish Stated Reason for Admission fix my nose Primary Contact Name and Numberruth- Medications Brought to Hospitalno General Health: Weight in kg114.1 kilogram(s) Weight in axf192.5 pound(s) Weight Methodactual (measured) Scale Typestanding Height in inch(es) Patient or Family Member Reaction to Anesthesiano previous reaction Blood Avoidance/Restrictionsnone Previous Transfusion Reactionno Health Mgmt: Symptoms/Conditions Managed at Homerespiratory; HEENT (head, eyes, ears, nose, throat) Respiratory Symptoms/Conditionsdeviate d septum per pt.; sleep disordered breathing Respiratory Management StrategiesCPAP Barriers to Managing Healthnone Relationship/Environ: Lives Withspouse Living Arrangementshouse Resource/Environmental Concernsnone Anticipated Transition [employer] Anticipated at Transitionnone Tobacco Use: Tobacco Useno Pre-op Checklist: Arrival [id number] Arrival Time06:51 Procedure Typeseptoplasty NPOyes Last Food [id number] 19:00 ID Band On Patientpatient ID (name) Consent Signedpending SCD's Appliednot applicable Additional Information: Information Review: Allergies, Home Meds and Significant Events have been Reviewed and Verified with Patient/Familyyes Allergy, Intolerance, Adverse Event: Allergies: No Known Allergies: Active Significant Events: 10-Sep-2021 appendectomy: Past Surgical History, Active 10-Sep-2021 sinus surgery: Past Surgical History, Active 10-Sep-2021 wisdom teeth: Past Surgical History, Active 22-Sep-2021 SLEEP APNEA/ cpap: Past Medical History, Active Electronic Signatures: Valery Del Toro (VALENTIN) (Signed 22-Sep-2021 07:06) Authored: Initial Info, General Health, Health Mgmt, Relationship/Environ, Tobacco Use, Pre-op Checklist, Additional Information Liliya Nix (LOGAN) (Signed 21-Sep-2021 11:23) Authored: Initial Info Noemí Oropeza) (Signed 10-Sep-2021 14:17) Authored: Initial Info, Health Mgmt, Additional Information Last Updated: 22-Sep-2021 07:06 by Valery Del Toro (VALENTIN) Normal [facility] CORONAVIRUS 2019, SCREEN ASY MPTOMATICon 08-21-2021 SARS-CoV-2 (COVID-19) RNA ERIBERTO+probe Ql (Unsp spec) Not detected Normal Not Detected [facility] Comment on above: Result Comment: . This assay is designed to detect the N, ORF1ab and/or S genes of SARS-CoV-2 via nucleic acid amplification. A Negative (NOT DETECTED) result does not preclude 2019-nCoV infection since the adequacy of sample collection and/or low viral burden may result in presence of viral nucleic acids below the clinical sensitivity of this test method. Negative (NOT DETECTED) result should not be used as the sole basis for treatment or other patient management decisions. Rather negative results should be combined with clinical observations, patient history, and epidemiological information to make patient management decisions. Fact sheet for providers: https://www.fda.gov/media/102147/download Fact sheet for patients: https://www.fda.gov/media/329662/download This test has received FDA Emergency Use Authorization (EUA) and has been verified by [facility] ([facility]). This test is only authorized for the duration of time that circumstances exist to justify the authorization of the emergency use of in vitro diagnostic tests for the detection of SARS-CoV-2 virus and/or diagnosis of COVID-19 infection under section 564(b)(1) of the Act, 21 U.S.C. 360bbb-3(b)(1), unless the authorization is terminated or revoked sooner. [facility] is certified under CLIA-88 as qualified to perform high complexity testing. Testing is performed in the [facility] laboratories located at [id number] [place] [address]. Performed By: #### C OVSC #### [facility] [address] [place] [address] Lab Specimen Source Nasal, Nasopharyngeal Normal [facility] Comment on above: Performed By: #### C OVSC #### [facility] [address] [place] [address] Coronavirus 2019 RNA by PCR, Screening Asymptomticon 08-21-2021 Coronavirus 2019 RNA by PCR, Screening Asymptomtic Not detected Normal See Below [facility] Work Phone: Comment on above: SOURCE: Nasal, Nasop haryngealReference Range: Not Detected.This assay is designed to detect the N, ORF1ab and/or S genes of SARS-CoV-2 via nucleic acid amplification. A Negative (NOT DETECTED) result does not preclude 2019-nCoV infection since the adequacy of sample collection and/or low viral burden may result in presence of viral nucleic acids below the clinical sensitivity of this test method. Negative (NOT DETECTED) result should not be used as the sole basis for treatment or other patient management decisions. Rather negative results should be combined with clinical observations, patient history, and epidemiological information to make patient management decisions.Fact sheet for providers: https://www.fda.gov/media/219044/downloadFact sheet for patients: https://www.fda.gov/media/047146/downloadThis test has received FDA Emergency Use Authorization (EUA) and has been verified by [facility] ([facility]). This test is only authorized for the duration of time that circumstances exist to justify the authorization of the emergency use of in vitro diagnostic tests for the detection of SARS-CoV-2 virus and/or diagnosis of COVID-19 infection under section 564(b)(1) of the Act, 21 U.S.C. 360bbb-3(b)(1), unless the authorization is terminated or revoked sooner. [facility] is certified under CLIA-88 as qualified to perform high complexity testing. Testing is performed in the [facility] laboratories located at [address] [place] [address]. Covid 19 Resultson 1 SARS-CoV-2 (COVID-19) RNA ERIBERTO+probe Ql (Unsp spec) NEGATIVE COVID-19 Test Coronaviruses are common world-wide and are the cause of many common colds. SARS-COV2 is a new coronavirus that began circulating worldwide in 2019 so we are calling it COVID-19. It has been estimated that four out of five patients with COVID-19 will recover at home without the need for medical attention. Symptoms of COVID-19 may include cough, fever, shortness of breath, loss of taste or smell and other flu-like symptoms including chills, sore muscles, sore throat, and headache. Severe illness is more common in older people and people with other health problems such as high blood pressure, obesity, and immune system problems. If the test is positive, you have COVID-19. You will be contacted by the ordering physicians office and instructed to remain on home isolation, in accordance with CDC guidelines. You may also be contacted by the [facility] to see if any of your close contacts may have been exposed to the virus and need to quarantine. If the test is negative, you likely do not have COVID-19 at this time, but you still may have a different illness that can spread to other people (like Influenza, or the Flu) and could still be at risk for getting COVID-19. We recommend that you stay away from other people to limit the spread of illness until your symptoms are improving and you are fever-free for 24 hours without the use of fever lowering medications such as acetaminophen or ibuprofen. No test is 100% accurate so if you are still concerned you may have COVID-19, talk to your doctor about the need to continue to stay away from others. Medicines Unless your provider told you not to use the following: Acetaminophen (Tylenol and others) is generally safe. Anti-inflammatory medications, such as Ibuprofen (Advil or Motrin) or Naproxen (Aleve) can also be used. Ujgm-nth-kaqxfus cough and cold medicines can be used according to the instructions on the package. Some ejok-dqs-hvnexld medicines also contain acetaminophen. Make sure you are not taking more than your recommended dose. For those not hospitalized, there is no specific treatment available for this illness. Antibiotics do not treat Coronaviruses. Follow-Up Follow up with your doctor by scheduling a virtual visit or consider follow-up at one of our urgent care fever clinics. If you are having difficulty breathing, or are very weak and having difficulty standing, this is a medical emergency. Call 911 or have someone take you to the nearest emergency room immediately. If possible, wear a facemask. Additional guidance from the CDC for patients who tested POSITIVE for COVID-19 How to isolate: Isolate yourself in a specific room at home and limit your contact with others. Use a separate bathroom from other members of the household, when possible. Leave home only to get essential medical care. Do not go to work, school or public areas. Avoid using public transportation, ride-sharing, or taxis. Restrict contact with pets and other animals. If you must care for your pet or be around animals while you are sick, wash your hands before and after your interaction and wear a facemask. Make sure that shared spaces in the home have good airflow, such as by an air conditioner or an opened window, weather permitting. Personal Hygiene Procedures: Wear a face mask when in the same room as other people or pets. If a face mask interferes with your breathing, others should wear a mask when sharing space with you. Frequent hand-washing: wash your hands with soap and water for at least 20 seconds. If soap and water are not available, use alcohol-based hand factory representative. Avoid touching your eyes, nose, and mouth with unwashed hands. Household Hygiene Procedures: Avoid sharing personal household items such as dishes, glassware, cups, eating utensils, towels or bedding with other people or pets in your home. After use, these items should be washed with soap and hot water. Disinfect all high-touch surfaces every day with antibacterial cleaning solutions such as Lysol wipes, bleach, cleansers, etc. High-touch surfaces include tabletops, doorknobs, bathroom fixtures, toilets, phones, keyboards, tablets and bedside tables. Immediately clean any surfaces that may have blood, poop or body fluids on them, using antibacterial cleaning solutions such as Lysol wipes, bleach, cleansers, etc. If clothing or bedding come into contact with blood, poop or body fluids, they should be washed immediately. Follow the directions on the laundry detergent and clothing labels but hot water is recommended when possible. Stopping home isolation precautions: If possible, consult your doctor before stopping home isolation precautions. According to the CDC, you can discontinue home isolation precautions when you have met both of these criteria: Your fever and respiratory symptoms have been gone for 24 raul (more content not included)... Normal [facility] BASIC METABOLIC PANELon 09-2 Anion gap [Moles/Vol] 11 mmol/L Normal 10 - 20 [facility] Comment on above: Performed By: #### B MP #### [address], [place] [id number] Calcium [Mass/Vol] 9.6 mg/dL Normal 8.6 - 10.3 [facility] Comment on above: Performed By: #### B MP #### [address], [place] [id number] Chloride [Moles/Vol] 101 mmol/L Normal 98 - 107 [facility] Comment on above: Performed By: #### B MP #### [address], [place] [id number] Creatinine [Mass/Vol] 0.93 mg/dL Normal 0.50 - 1.30 [facility] Comment on above: Performed By: #### B MP #### [address] [employer], [place] [id number] GFR- AM. >60 Normal >60 [facility] Comment on above: Result Comment: CALC ULATIONS OF ESTIMATED GFR ARE PERFORMED USING THE MDRD STUDY EQUATION FOR THE IDMS-TRACEABLE CREATININE METHODS. CLIN CHEM 2007;53:766-72 Performed By: #### B MP #### [address] [employer], [place] [id number] GFR-NON AM. >60 Normal >60 [facility] Comment on above: Performed By: #### B MP #### [address] [employer], [place] [phone] Glucose [Mass/Vol] 98 mg/dL Normal 74 - 99 [facility] Comment on above: Performed By: #### B MP #### [facility] [address] [facility] [place] [phone] HCO3 (Bld) [Moles/Vol] 28 mmol/L Normal 21 - 32 [facility] Comment on above: Performed By: #### B MP #### [facility] [address] [facility] [place] [phone] Potassium [Moles/Vol] 4.1 mmol/L Normal 3.5 - 5.3 [facility] Comment on above: Performed By: #### B MP #### [facility] [address] [place] [address] [place], [place] [phone] Sodium [Moles/Vol] 136 mmol/L Normal 136 - 145 [facility] Comment on above: Performed By: #### B MP #### [facility] [address] [place], [place] [address] [phone] Urea nitrogen [Mass/Vol] 18 mg/dL Normal 6 - 23 [facility] Comment on above: Performed By: #### B MP #### [facility] [id number] [place], [place] [address] [id number] CBCon 08-20-2021 Erythrocyte distribution width (RBC) [Ratio] 11.6 % Normal 11.5 - 14.5 [facility] Comment on above: Performed By: #### C BC #### [facility] [id number] [place], [place] [address] [phone] Hematocrit (Bld) [Volume fraction] 42.7 % Normal 41.0 - 52.0 [facility] Comment on above: Performed By: #### C BC #### [facility] [address] [facility] [place] [phone] Hemoglobin (Bld) [Mass/Vol] 14.5 g/dL Normal 13.5 - 17.5 [facility] Comment on above: Performed By: #### C BC #### [facility] [address] [place], [place] [address] [phone] MCHC (RBC) [Mass/Vol] 34.0 g/dL Normal 32.0 - 36.0 [facility] Comment on above: Performed By: #### C BC #### [facility] [address] [facility], [place] [phone] MCV (RBC) [Entitic vol] 93 fL Normal 80 - 100 [facility] Comment on above: Performed By: #### C BC #### [facility] [address] [facility], [place] [phone] Platelets (Bld) [#/Vol] 195 10*3/uL Normal 150 - 450 [facility] Comment on above: Performed By: #### C BC #### [facility] [address] [facility], [place] [phone] RBC 4.61 x10E12/L Normal 4.50 - 5.90 [facility] Comment on above: Performed By: #### C BC #### [facility] [address] [facility], [place] [phone] WBC (Bld) [#/Vol] 5.9 10*3/uL Normal 4.4 - 11.3 [facility] Comment on above: Performed By: #### C BC #### [facility] [address] [facility], [place] [phone] Laboratory - Chemistry and C hemistry - challengeon 08-20-2021 Anion gap [Moles/Vol] 11 mmol/L 10 - 20 [facility] Work Phone: Calcium [Mass/Vol] 9.6 mg/dL 8.6 - 10.3 [facility] [facility] Work Phone: Chloride [Moles/Vol] 101 mmol/L 98 - 107 [facility] Work Phone: CO2 [Moles/Vol] 28 mmol/L 21 - 32 [facility] Work Phone: Creatinine [Mass/Vol] 0.93 mg/dL See Below [facility] Work Phone: Comment on above: Reference Range: 0.5 0 - 1.30 Glucose [Mass/Vol] 98 mg/dL 74 - 99 [facility] Work Phone: Potassium [Moles/Vol] 4.1 mmol/L 3.5 - 5.3 [facility] Work Phone: Sodium [Moles/Vol] 136 mmol/L 136 - 145 [facility] Work Phone: Urea nitrogen [Mass/Vol] 18 mg/dL 6 - 23 [facility] Work Phone: Laboratory - Hematology and Cell countson 08-20-2021 Erythrocyte distribution width (RBC) [Ratio] 11.6 % See Below [facility] Work Phone: Comment on above: Reference Range: 11. 5 - 14.5 Hematocrit (Bld) [Volume fraction] 42.7 % See Below [facility] Work Phone: Comment on above: Reference Range: 41. 0 - 52.0 Hemoglobin (Bld) [Mass/Vol] 14.5 g/dL See Below [facility] Work Phone: Comment on above: Reference Range: 13. 5 - 17.5 MCHC (RBC) [Mass/Vol] 34.0 g/dL See Below [facility] Work Phone: Comment on above: Reference Range: 32. 0 - 36.0 MCV (RBC) [Entitic vol] 93 fL 80 - 100 [facility] Work Phone: Platelets (Bld) [#/Vol] 195 10*3/uL 150 - 450 [facility] Work Phone: RBC (Bld) [#/Vol] 4.61 {x10E12/L} See Below [facility] Work Phone: Comment on above: Reference Range: 4.5 0 - 5.90 WBC (Bld) [#/Vol] 5.9 10*3/uL 4.4 - 11.3 [facility] Work Phone: No Panel Informationon 08-20 >60 >60 [facility] Work Phone: Comment on above: CALCULATIONS OF JOSE MATED GFR ARE PERFORMED USING THE MDRD STUDY EQUATION FOR THE IDMS-TRACEABLE CREATININE METHODS. CLIN CHEM 2007;53:766-72 [email or web address]?R etrieveTestByDateTime?Maddy wreWZ=[id number]&Date=&Time=12%3a34%3a23%3a 00&TestType=ECG&Site=6&Out putType=PDF&Ext=PDF [facility] Work Phone: Sinus bradycardia [facility] Work Phone: Borderline Abnormal [facility] Work Phone: [phone] [facility] Work Phone: [phone] [facility] Work Phone: 180 1 [facility] Work Phone: 125 1 [facility] Work Phone: 225 1 [facility] Work Phone: 10 1 [facility] Work Phone: 30 1 [facility] Work Phone: -15 1 [facility] Work Phone: 20 1 [facility] Work Phone: 393 1 [facility] Work Phone: 408 1 [facility] Work Phone: 86 1 [facility] Work Phone: 200 1 [facility] Work Phone: 56 1 [facility] Work Phone: Initial Visit (Otolaryngolog y)on 05-21-2021 Initial Visit (Otolaryngology) Diagnoses/Problems Chronic nasal congestion (478.19) (R09.81) Nasal septal deviation (470) (J34.2) Nasal valve collapse (478.19) (J34.89) Recurrent sinusitis (473.9) (J32.9) Provider Impressions Assessment - This patient has a significant mechanical nasal obstruction. The cause is multifactorial, with an obvious septal deviation, turbinate hypertrophy, and static internal nasal valve collapse. There is some dynamic nasal valve collapse as well. Correction of this nasal obstruction will require a septoplasty, repair of nasal valve collapse with structural grafting, and a bilateral turbinate reduction. We discussed the medical necessity of this at length, as well as the risks and limitations of the procedures. All questions were answered. Plan - Recommend septoplasty, nasal valve repair with structural grafting, and inferior turbinate reduction with lateralization. He has a history of sinusitis with previous FESS. He has had a recent CT sinus which was not available to review on visit today. He will attempt to obtain prior to any surgical intervention. History of Present Illness Reason for consult: Nasal obstruction. Referring Provider: Dr. Rogers Chief Complaint: Obstructed breathing Constant, present year round, does not fluctuate. It affects the patients ability to sleep, exercise, and is troubling during the day. Symptoms began: years ago. he does have a history of HARRIET for which he uses a full mask CPAP The patient has used nasal steroid sprays without any benefit. Site of obstruction: left > right Previous surgery: ESS years ago Trauma history: none Allergic rhinitis, sinusitis history: history of recurrent sinusitis with previous sinus surgery. sinus infections have improved but nasal obstruction has persisted Smoking: none Aesthetic concern: none Past, family, and social history obtained but not pertinent to current problem other than documented in HPI: All other systems have been reviewed and are negative for complaint. Physical exam General: Well-developed and well-nourished in appearance. Skin: No rashes or concerning lesions on the visible portions of the skin. Eyes: Extraocular movements intact. Visual shine grossly normal. Ears: Pinna are normal in shape and position. External canals are patent. Oral Cavity/Oropharynx: Dentition is intact. Mucous membranes moist. No masses or lesions. Tonsils are symmetric and non-obstructive. Neck: Midline trachea without masses or lesions. Thyroid is normal in size. Lymphatics: No palpable cervical lymphadenopathy Respiratory: No respiratory distress. Quiet breathing without stertor or stridor. Cardiovascular: Regular rate and rhythm. Warm extremities with equal pulses. Psych: Normal mood and affect. Judgement and insight appropriate. Neuro: Alert and oriented. CN II-XII grossly intact. No focal deficits. Musculoskeletal: Gait intact. Moves all extremities well without apparent deformities. A comprehensive nasal exam was performed with the following highlights: Septum: caudal deflection to the left Inferior turbinates: hypertrophied bl Nasal valve angle: reduced bilaterally Intranasal examination performed with limited view on anterior rhinoscopy. Procedures: Procedure: Rigid diagnostic nasal endoscopy Surgeon: Marco Antonio Kang MD Anesthesia: None Timeout: Performed Findings: A 0-degree rigid endoscope was passed through the patient's bilateral naris. The first pass was along the floor of the nose to the nasopharynx. The second pass was to the area of the middle meatus. The third pass was to the sphenoethmoidal recess. Septum: Deviation is S shaped with bilateral obstruction approximately 90% without perforations nor synechia. Internal Nasal Valve: Angle is reduced, narrowing the nasal airway bilaterally. Right nasal cavity: Inferior turbinate: 2+ Inferior meatus: Clear, no discharge, no polyps/masses/lesions Middle meatus: Clear, no discharge, no polyps/masses/lesions Left nasal cavity: Inferior turbinate: 2+ Inferior meatus: Clear, no discharge, no polyps/masses/lesions Middle meatus: Clear, no discharge, no polyps/masses/lesions Nasopharynx: Clear, no discharge, no masses/lesions Modified Corson Maneuver: Performed with a cotton tipped applicator, markedly improves breathing bilaterally. 'Scores and Scales' Signatures Electronically signed by : Marco Antonio Kang MD; 2021 8:41PM EST (Author) Normal [facility] Office Visit Presurgicalon 0 05-21-2021 Office Visit Presurgical Diagnoses/Problems Assessed Chronic nasal congestion (478.19) (R09.81) Nasal septal deviation (470) (J34.2) Nasal valve collapse (478.19) (J34.89) Recurrent sinusitis (473.9) (J32.9) Provider Impressions Assessment - This patient has a significant mechanical nasal obstruction. The cause is multifactorial, with an obvious septal deviation, turbinate hypertrophy, and static internal nasal valve collapse. There is some dynamic nasal valve collapse as well. Correction of this nasal obstruction will require a septoplasty, repair of nasal valve collapse with structural grafting, and a bilateral turbinate reduction. We discussed the medical necessity of this at length, as well as the risks and limitations of the procedures. All questions were answered. Plan - Recommend septoplasty, nasal valve repair with structural grafting, and inferior turbinate reduction with lateralization. He has a history of sinusitis with previous FESS. He has had a recent CT sinus which was not available to review on visit today. He will attempt to obtain prior to any surgical intervention. History of Present Illness Reason for consult: Nasal obstruction. Referring Provider: Dr. Rogers Chief Complaint: Obstructed breathing Constant, present year round, does not fluctuate. It affects the patients ability to sleep, exercise, and is troubling during the day. Symptoms began: years ago. he does have a history of HARRIET for which he uses a full mask CPAP The patient has used nasal steroid sprays without any benefit. Site of obstruction: left > right Previous surgery: ESS years ago Trauma history: none Allergic rhinitis, sinusitis history: history of recurrent sinusitis with previous sinus surgery. sinus infections have improved but nasal obstruction has persisted Smoking: none Aesthetic concern: none Past, family, and social history obtained but not pertinent to current problem other than documented in HPI: All other systems have been reviewed and are negative for complaint. Physical exam General: Well-developed and well-nourished in appearance. Skin: No rashes or concerning lesions on the visible portions of the skin. Eyes: Extraocular movements intact. Visual shine grossly normal. Ears: Pinna are normal in shape and position. External canals are patent. Oral Cavity/Oropharynx: Dentition is intact. Mucous membranes moist. No masses or lesions. Tonsils are symmetric and non-obstructive. Neck: Midline trachea without masses or lesions. Thyroid is normal in size. Lymphatics: No palpable cervical lymphadenopathy Respiratory: No respiratory distress. Quiet breathing without stertor or stridor. Cardiovascular: Regular rate and rhythm. Warm extremities with equal pulses. Psych: Normal mood and affect. Judgement and insight appropriate. Neuro: Alert and oriented. CN II-XII grossly intact. No focal deficits. Musculoskeletal: Gait intact. Moves all extremities well without apparent deformities. A comprehensive nasal exam was performed with the following highlights: Septum: caudal deflection to the left Inferior turbinates: hypertrophied bl Nasal valve angle: reduced bilaterally Intranasal examination performed with limited view on anterior rhinoscopy. Procedures: Procedure: Rigid diagnostic nasal endoscopy Surgeon: Marco Antonio Kang MD Anesthesia: None Timeout: Performed Findings: A 0-degree rigid endoscope was passed through the patient's bilateral naris. The first pass was along the floor of the nose to the nasopharynx. The second pass was to the area of the middle meatus. The third pass was to the sphenoethmoidal recess. Septum: Deviation is S shaped with bilateral obstruction approximately 90% without perforations nor synechia. Internal Nasal Valve: Angle is reduced, narrowing the nasal airway bilaterally. Right nasal cavity: Inferior turbinate: 2+ Inferior meatus: Clear, no discharge, no polyps/masses/lesions Middle meatus: Clear, no discharge, no polyps/masses/lesions Left nasal cavity: Inferior turbinate: 2+ Inferior meatus: Clear, no discharge, no polyps/masses/lesions Middle meatus: Clear, no discharge, no polyps/masses/lesions Nasopharynx: Clear, no discharge, no masses/lesions Modified Oleksandr Maneuver: Performed with a cotton tipped applicator, markedly improves breathing bilaterally. 'Scores and Scales' Signatures Electronically signed by : Marco Antonio Kang MD; 2021 8:41PM EST (Author) Normal [employer] Vital Signs Date Time Vital Sign Value Performing Clinician Facility 08-21-2024 15:08-0400 Blood Pressure Location [facility] 08-21-2024 15:08-0400 Diastolic blood pressure 88 mm[Hg] [facility] 08-21-2024 15:08-0400 Heart rate 72 /min [facility] 08-21-2024 15:08-0400 Respiratory rate 16 /min [facility] 08-21-2024 15:08-0400 Systolic blood pressure 126 mm[Hg] [facility] 09-10-2022 13:00-0400 Body height 177.8 cm Giselle Walker Other [facility] Other 09-10-2022 13:00-0400 Body mass index (BMI) [Ratio] 34.29 kg/m2 Giselle Walker Other [facility] Other 09-10-2022 13:00-0400 Body temperature 98.4 [degF] Giselle Walker Other [facility] Other 09-10-2022 13:00-0400 Body weight 108.41 kg Giselle Walker Other [facility] Other 09-10-2022 13:00-0400 Respiratory rate 18 /min Giselle Walker Other [facility] Other 09-10-2022 13:00-0400 SaO2% (BldA) [Mass fraction] 97 % Giselle Aaron Other [employer] Other 11-10-2021 16:01-0500 Body height 177.8 cm Micha M Hoy Work Phone: EJ-Gwnwhspokbzwlx-Um idman Work Phone: 11-10-2021 16:01-0500 Body mass index (BMI) [Ratio] 35.73 kg/m2 Micha M Hoy Work Phone: GD-Ehjmtfvewznxfp-Ok idman Work Phone: 11-10-2021 16:01-0500 Body surface area Derived from formula 2.29 m2 Micha M Hoy Work Phone: DX-Sznlgamvmmkkbc-Aq idman Work Phone: 11-10-2021 16:01-0500 Body temperature 96.26 [degF] Micha M Hoy Work Phone: JA-Ohpdmuhvghodki-Su idman Work Phone: 11-10-2021 16:01-0500 Body weight 112.95 kg Micha M Hoy Work Phone: SB-Hfmkxnzzjhgxnf-Jw idman Work Phone: 09-29-2021 09:26-0400 Body height 177.8 cm Micha M Hoy Work Phone: FD-Vhngcbnnyviqtk-Ja idman Work Phone: 09-29-2021 09:26-0400 Body mass index (BMI) [Ratio] 36.03 kg/m2 Micha M Hoy Work Phone: MX-Jrnopitzbniqoa-Pf idman Work Phone: 09-29-2021 09:26-0400 Body surface area Derived from formula 2.3 m2 Micha M Hoy Work Phone: NS-Hxwkergprtqkpp-Bl idtiffanie Work Phone: 09-29-2021 09:26-0400 Body temperature 97.4 [degF] Micha Martinez Work Phone: TP-Vjynxethzvxrxl-Ac idtiffanie Work Phone: 09-29-2021 09:26-0400 Body weight 113.91 kg Micha Martinez Work Phone: CO-Bsamauoydzfsbh-La idtiffanie Work Phone: 09-29-2021 09:26-0400 Respiratory rate 18 /min Micha Martinez Work Phone: LH-Kvzaqryrwloqtz-Wu idtiffanie Work Phone: Encounters Encounter Date Encounter Type Care Provider Facility Start: 08-21-2024 ambulatory Maynor COULTER Facility :[facility] Start: 08-21-2024 End: 08-21-2024 Patient encounter procedure Maynor COULTER [facility] Start: 08-13-2024 ambulatory Maynor COULTER Facility:[facility] Start: 12-28-2022 End: 12-29-[address] MICHA MARTINEZ . Facility: Start: 12-21-2022 End: 12-22-[address] MICHA MARTINEZ . Facility:[facility] Start: 11-14-2022 Encounter for genera l adult medical examination without abnormal findings DR MICHA MARTINEZ . [facility] Start: 11-10-2022 End: 11-11-[address] MICHA MARTINEZ . Facility:[facility] Start: 11-10-2022 End: 11-11-2022 Encounter for general adult medical examination without abnormal findings DR MICHA MARTINEZ . Facility:[facility] Start: 09-10-2022 End: 09-10-2022 ambulatory Giselle Walker Other [facility] Other Start: 09-10-2022 Office outpatient vi sit 25 minutes Giselle Walker [facility] Start: 08-04-2022 End: 08-05-[address] MICHA MARTINEZ . Facility: Start: 11-10-2021 Patient encounter procedure Micha Martinez Work Phone: FF-Cbvwnielfkjqtj-Hguloc n Work Phone: Start: 11-10-2021 Postop follow up vis it related to original px Micha Martinez Work Phone: HU-Pjgnzqpzyndksi-Febqme ke Work Phone: Start: 09-29-2021 Postop follow up vis it related to original px Micha Martinez Work Phone: JW-Ksahihwpcayrkd-Rcgbyy n Work Phone: Start: 09-22-2021 Chart Update Micha Martinez Work Phone: GW-Dlfpycoragbvaf-Abajuf an Work Phone: Start: 08-25-2021 Chart Update Micha Martinez Work Phone: QI-Evkizbynndstxv-Wxaham an Work Phone: Procedures Date Procedure Procedure Detail Performing Clinician Start: 11-10-[address] LEON MARTINEZ . Comment on above: Performed By: #### P [facility] #### [facility] [address] [place] [address] Dr. Harika Valencia Appendectomy Maynor COULTER Colonoscopy Maynor COULTER Nasal septoplasty Maynor STEPHEN Plan of Treatment Date Care Activity Detail Author Start: 05-11-2022 FUV, Provider: Marco Antonio Kang, Status: Pen, Time: 1:15 PM [facility]UV, Provider: Marco Antonio Kang, Status: Pen, Time: 1:15 PM VN-Bbvlmrbkhdklgz-Bhw dman Work Phone: Start: 11-10-2021 FUV, Provider: Marco Antonio Kang, Status: Pen, Time: 3:45 PM FUV, Provider: Marco Antonio Kang, Status: Pen, Time: 3:45 PM OK-Xzdgxmtnpvywvn-Voa dman Work Phone: Start: 09-22-2021 SURGWEST, Provider: Marco Antonio Kang, Status: Pen, Time: 10:00 AM SURGWEST, Provider: Marco Antonio Kang, Status: Pen, Time: 10:00 AM UF-Vrnyvtiaxhpmhf-Cyc urban Work Phone: Immunizations Immunization Date Immunization Notes Care Provider Fa [facility] 10-18-2021 SARS-CoV-2 (COVID-19 ) mRNA BNT-162b2 vax Maynor NILL [facility] 03-02-2021 SARS-CoV-2 (COVID-19 ) mRNA BNT-162b2 vax Maynor NILL [facility] 02-08-2021 SARS-CoV-2 (COVID-19 ) mRNA BNT-162b2 vax Maynor NILL [facility] Payers Date Payer Category Payer Unknown [id number] 2.16.84 [id number] 1964 Unknown [id number] 2.16.84 [id number] 1964 Unknown [id number] 2.16.84 [id number] 1964 Unknown [id number] 2.16.84 [id number] 1964 Unknown [id number] 2.16.8 [id number] 1964 Unknown [id number] 2.16.8 [id number] 1959 Unknown [id number] 1959 Unknown [id number] Unknown Social History Date Type Detail Facility Sex Assigned At [facility] Start: 08-21-2024 Tobacco smoking status Never s moked tobacco (finding) [facility] Tobacco smoking status Never [facility] Functional Status Date Assessment Result Facility 08-21-2024 Functional Status N/A [facility] Evaluation note 09-10-2022 Note Date & Type Note Facility 09-10-2022 Evaluation note Encounter Date Diagnosis Assessment Notes Aug, Sore throat (ICD-10 - J02.9) Aug, Viral bronchitis (ICD-10 - J20.8) Advised patient that COVID/Influenza A/B/RSV PCR tests and rapid Strep test today in office was negative. Discussed diagnosis with patient in detail. Will treat as viral today based on physical exam and duration of symptoms, antibiotics are not indicated for viral infections. Advised patient that viral syndromes last 7-10 days, cough may linger for 3 weeks. Take medications as prescribed, reviewed side effects of steroid, take with food and plenty of water. Supportive care as directed, push fluids and rest, may use Tylenol as needed for fever/discomfort , cool mist humidifier. May use [place]coe as needed for cough, do not take any other OTCs while using [place]coe. Patient to follow up with PCP in 2-3 days. Immediate eval if SOB, difficulty breathing, chest pain, dizziness, or other concerning symptoms. Patient verbalizes understanding and is agreeable to treatment plan Aug, Contact with and (suspected) exposure to covid-19 (ICD-10 - Z20.822) [facility] Other History of Present illness Narrative 09-22-2021 Note Date & Type Note Facility 09-22-2021 History of Present illness Narrative doing well. here for splint removal. STR, NVR POV surgery 09/22nasal splints removednasal swelling expectedseptum midlinenasal airway patent blcontinue saline sprays and vaseline ointment to naresRTC 4-6 weeks XV-Vuaizlqulpzwbq-Vrhfcgh Work Phone: History of Present illness Narrative 09-22-2021 Note Date & Type Note Facility 09-22-2021 History of Present illness Narrative doing well. STR, NVR POV surgery 09/22nasal swelling expectedseptum midlinenasal airway patent blcontinue saline sprays and vaseline ointment to naresRTC 4-6 months RM-Uuklyncwrnbwqk-Fkpkfjes Work Phone: Clinical Note 09-22-2021 Note Date & Type Note Facility 09-22-2021 Note PROCEDURE DETAILS Preoperative Diagnosis: Deviated nasal septum, J34.2 Other specified disorders of nose and nasal sinuses, J34.89 Postoperative Diagnosis: same Surgeon: Marco Antonio Kang Resident/Fellow/Other [employer]: None of these were associated with this case Procedure: 1. SEPTOPLASTY, NASAL VALVE REPAIR, TURB REDUCTION Anesthesia: Jose Manuel Tapia Estimated Blood Loss: minimal Findings: bilateral lateral crura struts Operative Report: The patient presented with nasal obstruction. The patient was found to have significant nasal septal deviation, nasal valve collapse, and inferior turbinate hypertrophy. I discussed with the patient, in detail, the risks, benefits, limitations, and alternatives to the planned procedures. Risks discussed included but were not limited to infection, bleeding, septal perforation, synechia, need for further surgery, failure to achieve our desired results, worsened breathing, and worsened appearance. The patient expressed understanding of each of these complications and had all questions answered. DESCRIPTION OF PROCEDURE: The patient was brought to the operating room and placed in the supine position, then intubated under general anesthesia. The nose was injected with 1% lidocaine with epinephrine and then packed with decongestant-soaked pledgets. The face was prepped and draped in the usual sterile fashion. A left hemitransfixion incision was performed and mucoperichondrial flaps were elevated on the left and subsequently the right after crossing over the cartilage. The deviated septum was treated by removing deformed quadrangular cartilage and bony septum and septal cartilage was harvested, taking care to preserve a >1.0 cm L-shaped strut. To optimize the shape and position of the lateral crura, the vestibular lining underlying the lateral crura was elevated on each side and lateral crural strut grafts were placed. These were fashioned from previously harvested septal cartilage. Bilateral inferior turbinate reduction and lateralization was then performed. A [place] Rooster fine needle tip bovie electrocautery was used to perform intramural cauterization for submucous resection bilaterally. A Pinal elevator was then used to outfracture the inferior turbinate bilaterally. We then turned our attention to closure. Meticulous closure was performed using gut suture in a simple, interrupted fashion. The nose was gently cleansed with sterile saline and an external nasal splint was placed in the usual fashion. This concluded the goals of the procedure. The patient was turned over to Anesthesia, extubated, and transferred to the PACU. Attestation: Note Completion: Attending AttestationI was present for the entire procedure Electronic Signatures: Marco Antonio Kang) (Signed 22-Sep-2021 09:44) Authored: Post-Operative Note, Chart Review, Note Completion Last Updated: 22-Sep-2021 09:44 by Marco Antonio Kang) [facility] Clinical Note 09-22-2021 Note Date & Type Note Facility 09-22-2021 Note History of Present I llness: History Present Illness: Reason for surgery: nasal surgery HPI: History of RASHI Allergies: Allergies: No Known Allergies: Home Medication Review: Home Medications Reviewed: yes Impression/Procedure: Impression and Planned Procedure: Plan for septoplasty, NVR ERAS (Enhanced Recovery After Surgery): ERAS Patient: no Vital Signs: Temperature C: 36.4 degrees C Temperature F: 97.5 degrees F Heart Rate: 66 beats per minute Respiratory Rate: 18 breath per minute Physical Exam by System: Constitutional: Well developed, awake/alert/oriented x3, no distress, alert and cooperative Eyes: PERRL, EOMI, clear sclera ENMT: mucous membranes moist, no apparent injury, no lesions seen Head/Neck: Neck supple, no apparent injury, thyroid without mass or tenderness, No JVD, trachea midline, no bruits Respiratory/Thorax: Patent airways, CTAB, normal breath sounds with good chest expansion, thorax symmetric Cardiovascular: Regular, rate and rhythm, no murmurs, 2+ equal pulses of the extremities, normal S 1and S 2 Gastrointestinal: Nondistended, soft, non-tender, no rebound tenderness or guarding, no masses palpable, no organomegaly, +BS, no bruits Musculoskeletal: ROM intact, no joint swelling, normal strength Extremities: normal extremities, no cyanosis edema, contusions or wounds, no clubbing Skin: Warm and dry, no lesions, no rashes Consent: COVID-19 Consent: COVID-19 Risk ConsentSurgeon has reviewed leo risks related to the risk of tom COVID-19 and if they contract COVID-19 what the risks are. Electronic Signatures: Marco Antonio Kang) (Signed 22-Sep-2021 07:33) Authored: History of Present Illness, Allergies, Home Medication Review, Impression/Procedure, ERAS, Physical Exam, Consent, Note Completion Last Updated: 22-Sep-2021 07:33 by Marco Antonio Kang) [facility] Evaluation + Plan note Note Date & Type Note Facility Evaluation + Plan note No data available for this section [facility] History general Narrative - Reported Note Date & Type Note Facility History general Narrative - Reported Type Surgical History deviated septum repair 2020 Hospitalization History see above [facility] Other Hospital Discharge instructions Note Date & Type Note Facility Hospital Discharge instructions No data available for this section [facility] Progress note Note Date & Type Note Facility Progress note No data available for this section [facility] Summary Purpose Family History No Family History Records FoundNo Family History Records FoundNo Family History Records FoundNo Family History Records FoundNo Family History Records Found No data available for this section Advance Directives No Advanced Directives Records FoundNo Advanced Directives Records FoundNo Advanced Directives Records FoundNo Advanced Directives Records FoundNo Advanced Directives Records Found Chief Complaint POV surgery 09/22 Additional Source Comments (unrecognized sect ion and content) No Status Records FoundNo Status Records FoundNo Status Records FoundNo Status Records FoundNo Status Records Found INFORMATION SOURCE (unrecogn ized section and content) DATE CREATED AUTHOR 08/25/2021 [facility] DATE CREATED AUTHOR AUTHOR'S ORGANIZ ATION 11/13/2021 [facility] DATE CREATED AUTHOR AUTHOR'S ORGANIZ ATION 11/14/2021 [facility] DATE CREATED AUTHOR AUTHOR'S ORGANIZ ATION 01/16/2023 [facility] DATE CREATED AUTHOR AUTHOR'S ORGANIZ ATION 08/20/2024 Rigo Chong [facility] REASON FOR VISIT (unrecogniz ed section and content) SORE THROAT, EAR PAIN Patient Care team informatio n (unrecognized section and content) Personnel Name: Micha Martinez MD Address: Address: [address] [place] [address] FOR RECORDS PERTAINING TO PATIENTS WHO ARE OR HAVE BEEN ENROLLED IN A CHEMICAL DEPENDENCY/SUBSTANCEABUSE PROGRAM, SOME INFORMATION MAY BE OMITTED. This clinical summary was aggregated from multiple sources. Caution should be exercised in using it in the provision of clinical care. This summary normalizes information from multiple sources, and as a consequence, information in this document may materially change the coding, format and clinical context of patient data. In addition, data may be omitted in some cases. CLINICAL DECISIONS SHOULD BE BASED ON THE PRIMARY CLINICAL RECORDS. [facility] [employer] provides no warranty or guarantee of the accuracy or completeness of information in this document.
[2024-08-22 15:16] LABS: Basophils Percent Auto 0.5 % (0.2-2.0); Eosinophils Absolute Auto 0.2 10^3/uL (0.0-0.7); Eosinophils Percent Auto 2.7 % (0.9-7.0); Hematocrit 41.5 % (42.0-54.0); Hemoglobin 14.1 g/dL (14.0-18.0); Immature Granulocytes Abs Auto 0.01 10^3/uL (0.00-0.03); Immature Granulocytes Pct Auto 0.2 % (0.0-0.5); Lymphocytes Absolute Auto 1.8 10^3/uL (1.2-3.8); Lymphocytes Percent Auto 28.6 % (20.5-60.0); Mean Corpuscular Hemoglobin 32.1 pg (25.9-34.0); Mean Corpuscular Volume 94.5 fL (80.0-94.0); Mean Platelet Volume 8.8 fL (9.5-13.5); Monocytes Absolute Auto 0.6 10^3/uL (0.3-0.8); Monocytes Percent Auto 8.9 % (1.7-12.0); Neutrophils Absolute Auto 3.7 10^3/uL (1.4-6.5); Neutrophils Percent Auto 59.1 % (43.0-75.0); Platelet Count 157 10^3/uL (150-450); Red Blood Count 4.39 10^6/uL (4.70-6.10); Red Cell Distribution Width 11.8 % (11.0-15.0); White Blood Count 6.3 10^3/uL (4.0-11.0)
[2024-08-22 15:20] LABS: Estimated Average Glucose 123 mg/dL; Glycohemoglobin A1C 5.9 % (4.5-6.2)
[2024-08-22 15:51] LABS: Alanine Aminotransferase 48 U/L (16-63); Albumin Globulin Ratio 1.1; Albumin Level 3.9 g/dL (3.4-5.0); Alkaline Phosphatase 47 U/L (46-116); Anion Gap 6.3; Aspartate Amino Transferase 28 U/L (15-37); Bilirubin Total 0.8 mg/dL (0.2-1.0); Calcium 9.2 mg/dL (8.5-10.1); Carbon Dioxide 32.5 mmol/L (21.0-32.0); Chloride 100 mmol/L (98-107); Chol HDL Ratio 3.7; Cholesterol 215 mg/dL (<=200); Estimated GFR (African America >60 (>=60); Estimated GFR (Non-African Ame >60 (>=60); Free T3 2.37 pg/mL (2.18-3.98); Globulin 3.6 g/dL; Glucose 88 mg/dL (74-106); HDL Cholesterol 58 mg/dL (40-60); Potassium 3.8 mmol/L (3.5-5.1); Sodium 135 mmol/L (136-145); Thyroid Stimulating Hormone 2.418 uIU/mL (0.358-3.740); Total Protein 7.5 g/dL (6.4-8.2); Triglycerides 156 mg/dL (<=150); VLDL CHOLESTEROL 31.2 mg/dL
[2024-08-22 15:55] LABS: Prostate Specific Antigen Scrn 0.56 ng/mL (<=4.00)
[2024-08-23 10:11] LABS: Insulin 12.4 uIU/mL (2.6-24.9)
== END 2024-08-22 14:59 | disposition home or self-care (01) ==
LOC: LAB 14:59
PROVIDERS: PCP Family Medicine; Visit Provider Family Medicine
DX: Z00.00 Encounter for general adult medical examination without abnormal findings (principal)
CPT/HCPCS: 36415; 80053; 80061; 83036; 83525; 84436; 84443; 84481; 84550; 85025; G0103

== ENCOUNTER 2024-09-24 14:45 | Outpatient (OUT) | payer OTHER, SELFPAY ==
--- OUTSIDE RECORDS SUMMARY | 2024-09-24 14:56 | XMS_ITS | CCD ---
Author Organization [facility] [employer] Care Team Providers Care [employer]amp Service Employee Name Role Phone Micha Martinez Unavailable Unavailable [...] Medication Allergies] Propensity to adverse reactions (disorder) [facility] Repository Medications Current Medications Medication Drug Class(es) Dates Sig (Normalized) Sig (Original) [id number] 200 actuat albuterol 0.09 mg/actuat metered dose inhaler (1 source) beta2-Adrenergic Agonist Start: 2 take 2 puff(s) by inhalation every four to six hours as needed Albuterol Sulfate HFA 108 (90 Base) MCG/ACT 2 puffs as needed Inhalation every 4-6 hours for 14 days Aug, Active dextromethorphan hydrobromide 1.5 mg/ml / pyrilamine maleate 1.5 mg/ml oral solution (1 source) Uncompetitive Z-xfoqoj-[place] te Receptor Antagonist, Sigma-1 Agonist Start: 2 take 10 mL by mouth every eight hours [place] DM 7.5-7.5 MG/5ML 10 mL Orally every [...] DUTCH HAMM Date: 2022-12-28 10:37 Normal [facility] CA 19-9on 12-22-2022 CA 19-9 11 U/mL Normal 0-35 [facility] Comment on above: Result Comment: TraceWorks Electrochemiluminescence Immunoassay (ECLIA) . Values obtained with different assay methods or kits cannot be used interchangeably. Results cannot be interpreted as absolute evidence of the presence or absence of malignant disease. Performed By: #### C A 19,9 #### [facility] [address] [place] [address] Dr. Harika Valencia AMYLASEon 12-21-2022 Amylase [Catalytic activity/Vol] 50 U/L Normal 25-115 [facility] Comment on above: Performed By: #### L IPA, CMP, AUNDREA #### [facility] [address] [place] [address] Dr. Harika Valencia CBC AUTO DIFFon 12-21-2022 BASO # 0.0 103/ul Normal 0.0-0.1 [facility] Comment on above: Performed By: #### C BC #### [facility] [address] [place] [address] Dr. Harika Valencia Basophils/100 WBC (Bld) 0.4 % Normal 0.2-2.0 [facility] Comment on above: Performed By: #### C BC #### [facility] [address] [place] [address] Dr. Harika Valencia EO # 0.1 103/ul Normal 0.0-0.7 [facility] Comment on above: Performed By: #### C BC #### [facility] [address] [place] [address] Dr. Harika Valencia Eosinophils/100 WBC (Bld) 1.6 % Normal 0.9-7.0 [facility] Comment on above: Performed By: #### C BC #### [facility] [address] [place] [address] Dr. Harika Valencia Erythrocyte distribution width (RBC) [Ratio] 12.0 % Normal 11.0-15.0 [facility] Comment on above: Performed By: #### C BC #### [facility] [address] [place] [address] Dr. Harika Valencia Hematocrit (Bld) [Volume fraction] 46.4 % Normal 42.0-54.0 [facility] Comment on above: Performed By: #### C BC #### [facility] [address] [place] [address] Dr. Harika Valencia Hemoglobin (Bld) [Mass/Vol] 15.2 g/dL Normal 14.0-18.0 [facility] Comment on above: Performed By: #### C BC #### [facility] [address] [place] [address] Dr. Harika Valencia IG # 0.01 10e3/ul Normal 0.00-0.03 [facility] Comment on above: Performed By: #### C BC #### [facility] [address] [place] [address] Dr. Harika Valencia IG % 0.2 % Normal 0.0-0.5 [facility] Comment on above: Performed By: #### C BC #### [facility] [address] [place] [address] Dr. Harika Valencia LYMPH # 1.8 103/ul Normal 1.2-3.8 [facility] Comment on above: Performed By: #### C BC #### [facility] [address] [place] [address] Dr. Harika Valencia Lymphocytes/100 WBC (Bld) 35.1 % Normal 20.5-60.0 [facility] Comment on above: Performed By: #### C BC #### [facility] [address] [place] [address] Dr. Harika Valencia MANUAL DIFF REQ NO Normal [facility] Comment on above: Performed By: #### C BC #### [facility] [address] [place] [address] Dr. Harika Valencia MCH (RBC) [Entitic mass] 31.5 pg Normal 25.9-34.0 [facility] Comment on above: Performed By: #### C BC #### [facility] [address] [place] [address] Dr. Harika Valencia MCHC (RBC) [Mass/Vol] 32.8 g/dL Normal 29.9-35.2 [facility] Comment on above: Performed By: #### C BC #### [facility] [address] [place] [address] Dr. Harika Valencia MCV (RBC) [Entitic vol] 96.1 fL Critically high 80.0-94.0 [facility] Comment on above: Performed By: #### C BC #### [facility] [address] [address] [address] Harika Valencia MONO # 0.4 103/ul Normal 0.3-0.8 [facility] Comment on above: Performed By: #### C BC #### [facility] [address] [address] [address] Harika Valencia Monocytes/100 WBC (Bld) 8.0 % Normal 1.7-12.0 [facility] Comment on above: Performed By: #### C BC #### [facility] [address] [place] [address] Dr. Harika Valencia NEUT # 2.8 103/ul Normal 1.4-6.5 [facility] Comment on above: Performed By: #### C BC #### [facility] [address] [place] [address] Dr. Harika Valencia Neutrophils/100 WBC (Bld) 54.7 % Normal 43.0-75.0 [facility] Comment on above: Performed By: #### C BC #### [facility] [address] [place] [address] Dr. Harika Valencia Platelet mean volume (Bld) [Entitic vol] 8.8 fL Critically low 9.5-13.5 [facility] Comment on above: Performed By: #### C BC #### [facility] [address] [place] [address] Dr. Harika Valencia PLT 201 103/ul Normal 150-450 [facility] Comment on above: Performed By: #### C BC #### [facility] [address] [place] [address] Dr. Harika Valencia RBC 4.83 106/ul Normal 4.70-6.10 [facility] Comment on above: Performed By: #### C BC #### [facility] [address] [place] [address] Dr. Harika Valencia WBC 5.1 103/ul Normal 4.0-11.0 [facility] Comment on above: Performed By: #### C BC #### [facility] [address] [address] [address] Harika Valencia LIPASEon 12-21-2022 Lipase [Catalytic activity/Vol] 129.0 U/L Normal 73.0-393.0 [facility] Comment on above: Performed By: #### L IPA, CMP, AUNDREA #### [facility] [address] [place] [address] Dr. Harika Valencia PROF 14(COMP METB)on 023 Albumin [Mass/Vol] 4.1 g/dL Normal 3.4-5.0 [facility] Comment on above: Performed By: #### L IPA, CMP, AUNDREA #### [facility] [address] [place] [address] Dr. Harika Valencia Albumin/Globulin [Mass ratio] 1.0 {ratio} Normal [facility] Comment on above: Performed By: #### L IPA, CMP, AUNDREA #### [facility] [address] [place] [address] Dr. Harika Valencia ALP [Catalytic activity/Vol] 55 U/L Normal 46-116 [facility] Comment on above: Performed By: #### L IPA, CMP, AUNDREA #### [facility] [address] [place] [address] Dr. Harika Valencia ALT [Catalytic activity/Vol] 62 U/L Normal 16-63 [facility] Comment on above: Performed By: #### L IPA, CMP, AUNDREA #### [facility] [address] [place] [address] Dr. Harika Valencia Anion gap [Moles/Vol] 12.4 mmol/L Normal [facility] Comment on above: Performed By: #### L IPA, CMP, AUNDREA #### [facility] [address] [place] [address] Dr. Harika Valencia AST [Catalytic activity/Vol] 34 U/L Normal 15-37 [facility] Comment on above: Performed By: #### L IPA, CMP, AUNDREA #### [facility] [address] [place] [address] Dr. Harika Valencia Bilirubin [Mass/Vol] 0.7 mg/dL Normal 0.2-1.0 [facility] Comment on above: Performed By: #### L IPA, CMP, AUNDREA #### [facility] [address] [place] [address] Dr. Harika Valencia Calcium [Mass/Vol] 9.3 mg/dL Normal 8.5-10.1 [facility] Comment on above: Performed By: #### L IPA, CMP, AUNDREA #### [facility] [address] [place] [address] Dr. Harika Valencia Chloride [Moles/Vol] 100 mmol/L Normal 98-107 [facility] Comment on above: Performed By: #### L IPA, CMP, AUNDREA #### [facility] [address] [place] [address] Dr. Harika Valencia CO2 [Moles/Vol] 27.6 mmol/L Normal 21.0-32.0 [facility] Comment on above: Performed By: #### L IPA, CMP, AUNDREA #### [facility] [address] [place] [address] Dr. Harika Valencia Creatinine [Mass/Vol] 0.83 mg/dL Normal 0.70-1.30 [facility] Comment on above: Performed By: #### L IPA, CMP, AUNDREA #### [facility] [address] [place] [address] Dr. Harika Valencia EGFR-AF MALIAN >60 Normal >=60 [facility] Comment on above: Performed By: #### L IPA, CMP, AUNDREA #### [facility] [address] [place] [address] Dr. Harika Valencia EGFR-NON AF MALIAN >60 Normal >=60 [facility] Comment on above: Performed By: #### L IPA, CMP, AUNDREA #### [facility] [address] [place] [address] Dr. Harika Valencia Globulin (S) [Mass/Vol] 4.0 g/dL Normal [facility] Comment on above: Performed By: #### L IPA, CMP, AUNDREA #### [facility] [address] [place] [address] Dr. Harika Valencia Glucose [Mass/Vol] 98 mg/dL Normal 74-106 [facility] Comment on above: Performed By: #### L IPA, CMP, AUNDREA #### [facility] [address] [place] [address] Dr. Harika Valencia Potassium [Moles/Vol] 4.0 mmol/L Normal 3.5-5.1 [facility] Comment on above: Performed By: #### L IPA, CMP, AUNDREA #### [facility] [address] [place] [address] Dr. Harika Valencia Protein [Mass/Vol] 8.1 g/dL Normal 6.4-8.2 [facility] Comment on above: Performed By: #### L IPA CMP, AUNDREA #### [facility] [address] [place] [address] Dr. Harika Valencia Sodium [Moles/Vol] 136 mmol/L Normal 136-145 [facility] Comment on above: Performed By: #### L IPA, CMP, AUNDREA #### [facility] [address] [place] [address] Dr. Harika Valencia Urea nitrogen [Mass/Vol] 15.0 mg/dL Normal 7.0-18.0 [facility] Comment on above: Performed By: #### L IPA CMP, AUNDREA #### [facility] [address] [place] [address] Dr. Harika Valencia Urea nitrogen/Creatinin e [Mass ratio] 18.1 mg/mg Normal [facility] Comment on above: Performed By: #### L IPA, CMP, AUNDREA #### [facility] [address] [place] [address] Dr. Hairka Valencia INSULINon 11-11-2022 Insulin 24.7 uIU/mL Normal 2.6-24.9 [facility] Comment on above: Performed By: #### I NSULIN ####[facility] [address] [address]Dr. Harika Valencia CBC AUTO DIFFon 11-10-2022 BASO # 0.0 103/ul Normal 0.0-0.1 [facility] Comment on above: Performed By: #### C BC #### [facility] [address] [place] [address] Dr. Harika Valencia Basophils/100 WBC (Bld) 0.4 % Normal 0.2-2.0 [facility] Comment on above: Performed By: #### C BC #### [facility] [address] [place] [address] Dr. Harika Valencia EO # 0.1 103/ul Normal 0.0-0.7 [facility] Comment on above: Performed By: #### C BC #### [facility] [address] [place] [address] Dr. Harika Valencia Eosinophils/100 WBC (Bld) 2.2 % Normal 0.9-7.0 [facility] Comment on above: Performed By: #### C BC #### [facility] [address] [place] [address] Dr. Harika Valencia Erythrocyte distribution width (RBC) [Ratio] 12.0 % Normal 11.0-15.0 [facility] Comment on above: Performed By: #### C BC #### [facility] [address] [place] [address] Dr. Harika Vlaencia Hematocrit (Bld) [Volume fraction] 41.2 % Critically low 42.0-54.0 [facility] Comment on above: Performed By: #### C BC #### [facility] [address] [place] [address] Dr. Harika Valencia Hemoglobin (Bld) [Mass/Vol] 14.2 g/dL Normal 14.0-18.0 [facility] Comment on above: Performed By: #### C BC #### [facility] [address] [place] [address] Dr. Harika Valencia IG # 0.02 10e3/ul Normal 0.00-0.03 [facility] Comment on above: Performed By: #### C BC #### [facility] [address] [place] [address] Dr. Harika Valencia IG % 0.4 % Normal 0.0-0.5 [facility] Comment on above: Performed By: #### C BC #### [facility] [address] [address] [address] Harika Valencia LYMPH # 1.7 103/ul Normal 1.2-3.8 [facility] Comment on above: Performed By: #### C BC #### [facility] [address] [address] [address] Harika Valencia Lymphocytes/100 WBC (Bld) 37.4 % Normal 20.5-60.0 [facility] Comment on above: Performed By: #### C BC #### [facility] [address] [place] [address] Dr. Harika Valencia MANUAL DIFF REQ NO Normal [facility] Comment on above: Performed By: #### C BC #### [facility] [address] [place] [address] Dr. Harika Valencia MCH (RBC) [Entitic mass] 31.0 pg Normal 25.9-34.0 [facility] Comment on above: Performed By: #### C BC #### [facility] [address] [place] [address] Dr. Harika Valencia MCHC (RBC) [Mass/Vol] 34.5 g/dL Normal 29.9-35.2 [facility] Comment on above: Performed By: #### C BC #### [facility] [address] [place] [address] Dr. Harika Valencia MCV (RBC) [Entitic vol] 90.0 fL Normal 80.0-94.0 [facility] Comment on above: Performed By: #### C BC #### [facility] [address] [place] [address] Dr. Harika Valencia MONO # 0.5 103/ul Normal 0.3-0.8 [facility] Comment on above: Performed By: #### C BC #### [facility] [address] [place] [address] Dr. Harika Valencia Monocytes/100 WBC (Bld) 11.1 % Normal 1.7-12.0 [facility] Comment on above: Performed By: #### C BC #### [facility] [address] [address] [address] Harika Valencia NEUT # 2.2 103/ul Normal 1.4-6.5 [facility] Comment on above: Performed By: #### C BC #### [facility] [address] [address] [address] Harika Valencia Neutrophils/100 WBC (Bld) 48.5 % Normal 43.0-75.0 [facility] Comment on above: Performed By: #### C BC #### [facility] [address] [address] [address] Harika Valencia Platelet mean volume (Bld) [Entitic vol] 9.1 fL Critically low 9.5-13.5 [facility] Comment on above: Performed By: #### C BC #### [facility] [address] [address] [address] Harika Valencia PLT 189 103/ul Normal 150-450 [facility] Comment on above: Performed By: #### C BC #### [facility] [address] [address] [address] Harika Valencia RBC 4.58 106/ul Critically low 4.70-6.10 [facility] Comment on above: Performed By: #### C BC #### [facility] [address] [address] [address] Harika Valencia WBC 4.5 103/ul Normal 4.0-11.0 [facility] Comment on above: Performed By: #### C BC #### [facility] [address] [address] [address] Harika Valencia FREE THYROXINE INDEX T7on FTI 1.86 Normal 1.30-4.50 [facility] Comment on above: Performed By: #### T SH, T7, CMP, URIC, LIPID ####[facility] [id number] [id number]. Harika Valencia T3U 32.0 % Critically low 33.0-40.0 [facility] Comment on above: Performed By: #### T SH, T7, CMP, URIC, LIPID ####[facility] [address] [place], [place] [address]ClDr. Harika Valencia T4 [Mass/Vol] 5.80 ug/dL Normal 4.50-12.[address] [facility] Comment on above: Performed By: #### T SH, T7, CMP, URIC, LIPID ####[facility] [address] [place], [place] [address]RhDr. Harika Valencia GLYCOHEMOGLOBIN A1Con 2021 ADA RECOMMENDATION SEE BELOW Normal [facility] Comment on above: Result Comment: ADA RECOMMENDED LIMIT 4.0 - 6.0 ADA THERAPEUTIC TARGET < 7.0 ACTION SUGGESTED > 7.0 Performed By: #### A 1C #### [facility] [address] [address] [address] Harika Valencia Glucose [Mass/Vol] 143 mg/dL Normal [facility] Comment on above: Performed By: #### A 1C #### [facility] [address] [address] [address] Harika Valencia HbA1c (Bld) [Mass fraction] 6.6 % Critically high 4.5-6.2 [facility] Comment on above: Performed By: #### A 1C #### [facility] [address] [address] [address] Harika Valencia LIPID PROFILEon 11-10-2022 CHOL-HDL RATIO NORM SEE BELOW Normal [facility] Comment on above: Result Comment: 3.3 - 4.4 LOW RISK 4.4 - 7.1 AVERAGE RISK 7.1 - 11.0 MODERATE RISK >11.0 HIGH RISK Performed By: #### T SH, T7, CMP, URIC, LIPID ####[facility] [address] [place], [place] [address]VyDr. Harika Valencia Cholesterol [Mass/Vol] 174 mg/dL Normal <=200 [facility] Comment on above: Performed By: #### T SH, T7, CMP, URIC, LIPID ####[facility] [address] [place], [place] [address]SfDr. Harika Valencia Cholesterol in HDL [Mass/Vol] 52 mg/dL Normal 40-60 [facility] Comment on above: Performed By: #### T SH, T7, CMP, URIC, LIPID ####[facility] [address] [id number]. Harika Valencia Cholesterol in LDL [Mass/Vol] 95.6 mg/dL Normal [facility] Comment on above: Performed By: #### T SH, T7, CMP, URIC, LIPID ####[facility] [address] [id number]. Harika Valencia Cholesterol.total/ Cholesterol in HDL [Mass ratio] 3.3 {ratio} Normal [facility] Comment on above: Performed By: #### T SH, T7, CMP, URIC, LIPID ####[facility] [address] [id number]. Harika Valencia HDL NORMAL > or = 60 mg/dl - LO W CARDIOVASCULAR RISK <40 mg/dl - HIGH CARDIOVASCULAR RISK Normal [facility] Comment on above: Performed By: #### T SH, T7, CMP, URIC, LIPID ####[facility] [address] [address]Dr. Harika Valencia LDL CALC NORMAL SEE BELOW Normal [facility] Comment on above: Result Comment: <100 mg/dl OPTIMAL 100 - 129 mg/dl NEAR OR ABOVE OPTIMAL 130 - 159 mg/dl BORDERLINE HIGH 160 - 189 mg/dl HIGH >190 mg/dl VERY HIGH Performed By: #### T SH, T7, CMP, URIC, LIPID ####[facility] [address] [id number]. Harika Valencia Triglyceride [Mass/Vol] 132 mg/dL Normal <=150 [facility] Comment on above: Performed By: #### T SH, T7, CMP, URIC, LIPID ####[facility] [address] [id number]. Harika Valencia VLDL CALC 26.4 mg/dL Normal [facility] Comment on above: Performed By: #### T SH, T7, CMP, URIC, LIPID ####[facility] [address] [id number]. Harika Valencia PROF 14(COMP METB)on 022 Albumin [Mass/Vol] 3.8 g/dL Normal 3.4-5.0 [facility] Comment on above: Performed By: #### T SH, T7, CMP, URIC, LIPID ####[facility] [address] [address]Dr. Harika Valencia Albumin/Globulin [Mass ratio] 1.0 {ratio} Normal [facility] Comment on above: Performed By: #### T SH, T7, CMP, URIC, LIPID ####[facility] [address] [address]Dr. Leigh Annave Valencia ALP [Catalytic activity/Vol] 44 U/L Critically low 46-116 [facility] Comment on above: Performed By: #### T SH, T7, CMP, URIC, LIPID ####[facility] [address] [place], [place] [address]Dr. Harika Valencia ALT [Catalytic activity/Vol] 55 U/L Normal 16-63 [facility] Comment on above: Performed By: #### T SH, T7, CMP, URIC, LIPID ####[facility] [id number] [place], [place] [address]Dr. Harika Valencia Anion gap [Moles/Vol] 12.8 mmol/L Normal [facility] Comment on above: Performed By: #### T SH, T7, CMP, URIC, LIPID ####[facility] [address] [address]Dr. Harika Valencia AST [Catalytic activity/Vol] 26 U/L Normal 15-37 [facility] Comment on above: Performed By: #### T SH, T7, CMP, URIC, LIPID ####[facility] [address] [place], [place] [address]Dr. Harika Valencia Bilirubin [Mass/Vol] 0.5 mg/dL Normal 0.2-1.0 [facility] Comment on above: Performed By: #### T SH, T7, CMP, URIC, LIPID ####[facility] [address] [address]Dr. Harika aVlencia Calcium [Mass/Vol] 9.0 mg/dL Normal 8.5-10.1 [facility] Comment on above: Performed By: #### T SH, T7, CMP, URIC, LIPID ####[facility] [address] [address]Dr. Harika Valencia Chloride [Moles/Vol] 103 mmol/L Normal 98-107 [facility] Comment on above: Performed By: #### T SH, T7, CMP, URIC, LIPID ####[facility] [address] [address]Dr. Harika Valencia CO2 [Moles/Vol] 27.2 mmol/L Normal 21.0-32.0 [facility] Comment on above: Performed By: #### T SH, T7, CMP, URIC, LIPID ####[facility] [address] [address]Dr. Harika Valencia Creatinine [Mass/Vol] 0.79 mg/dL Normal 0.70-1.30 [facility] Comment on above: Performed By: #### T SH, T7, CMP, URIC, LIPID ####[facility] [address] [place], [place] [address]Dr. Harika Valencia EGFR-AF MALIAN >60 Normal >=60 [facility] Comment on above: Performed By: #### T SH, T7, CMP, URIC, LIPID ####[facility] [address] [place], [place] [address]Dr. Harika Valencia EGFR-NON AF MALIAN >60 Normal >=60 [facility] Comment on above: Performed By: #### T SH, T7, CMP, URIC, LIPID ####[facility] [address] [address]Dr. Harika Valencia Globulin (S) [Mass/Vol] 3.8 g/dL Normal [facility] Comment on above: Performed By: #### T SH, T7, CMP, URIC, LIPID ####[facility] [address] [address]Dr. Harika Valencia Glucose [Mass/Vol] 117 mg/dL Critically high 74-106 [facility] Comment on above: Performed By: #### T SH, T7, CMP, URIC, LIPID ####[facility] [address] [id number]. Harika Valencia Potassium [Moles/Vol] 4.0 mmol/L Normal 3.5-5.1 [facility] Comment on above: Performed By: #### T SH, T7, CMP, URIC, LIPID ####[facility] [address] [address]Dr. Harika Valencia Protein [Mass/Vol] 7.6 g/dL Normal 6.4-8.2 [facility] [place] Comment on above: Performed By: #### T SH, T7, CMP, URIC, LIPID ####[facility] [id number] [place] [address]Dr. Harika Valencia Sodium [Moles/Vol] 139 mmol/L Normal 136-145 [facility] [place] Comment on above: Performed By: #### T SH, T7, CMP, URIC, LIPID ####[facility] [id number] [place] [address]Dr. Harika Valencia Urea nitrogen [Mass/Vol] 14.0 mg/dL Normal 7.0-18.0 [facility] Comment on above: Performed By: #### T SH, T7, CMP, URIC, LIPID ####[facility] [id number] [place] [address]Dr. Harika Valencia Urea nitrogen/Creatinin e [Mass ratio] 17.7 mg/mg Normal [facility] Comment on above: Performed By: #### T SH, T7, CMP, URIC, LIPID ####[facility] [address] [place] [address]Dr. Harika Valencia TSHon 11-10-2022 TSH 2.508 uIU/mL Normal 0.358-3.740 The [facility] Comment on above: Performed By: #### T SH, T7, CMP, URIC, LIPID ####[facility] [id number] [place] [address]Dr. Harika Valencia URIC ACID SERUMon 11-10-2022 Urate [Mass/Vol] 5.0 mg/dL Normal 3.5-7.2 The [facility] Comment on above: Performed By: #### T SH, T7, CMP, URIC, LIPID ####[facility] [address] [place], [place] [address]IuKayden Valencia COVID/FLU/RSV RT-PCRon 09-10 SARS-CoV-2 (COVID-19) RNA ERIBERTO+probe Ql (Unsp spec) Negative [facility] Other COVID/FLU/RSV RT-PCR Negative [facility] Other Quick Strepon 09-10-2022 S. pyogenes Org specific cx Ql (Throat) Negative [facility] Other Quick Strep [facility] Other XR CHEST 2 Von 08-04-2022 XR [...] YOLETTE BUNN Date: 2022-08-04 11:52 Normal The [facility] Initial Visit (Otolaryngolog y)on 11-10-2021 Initial Visit [...] Medication NameInstruction Allergy TABS OneTouch Delica Plus Dwdagm60W OneTouch Verio In Vitro Strip Vitals Vital Signs Recorded: [id number] 04:01PM Gpjgcfzxckg65.7 C Height5 ft 10 in Julwxz120 lb BMI Tjgnulyjua87.73 kg/m2 BSA Calculated2.29 Tobacco Useb) No Fall Screeninga) No falls within the last year 'Scores and Scales' Signatures Electronically signed by : Marco Antonio Kang MD; Nov 12 2021 2:08PM EST (Author) Normal [employer] Tobacco Screening.on Fall risk assessment a) No [...] TABS Vitals Vital Signs Recorded: 29Sep2021 09:26AM Tomegelrriw24.4 F Skwtlvoaoah93 Height5 ft 10 in Opgqpt529 lb 1.98 oz BMI Aluocpxfzv62.03 kg/m2 BSA Calculated2.3 Tobacco Useb) No Fall Screeninga) No falls within the last year 'Scores and Scales' Signatures Electronically signed by : Marco Antonio Kang MD; Sep 29 2021 10:25AM EST (Author) Normal [employer] Tobacco Screening.on Fall risk assessment a) No [...] be shared with your follow-up providers (doctor, otr refrigerated cdl truck driver, physical therapist, etc.). Follow Up with with physician in [address] or operate motor vehicles for 24 hours. Patrick 0.65% nasal spray 2 spray(s) intranasally every [...] Discharge D (more content not included)... Normal [facility] CORONAVIRUS 2019, SCREEN ASY MPTOMATICon 09-20-2021 SARS-CoV-2 (COVID-19) RNA ERIBERTO+probe Ql (Unsp spec) Not detected Normal Not Detected [facility] Comment on above: Result Comment: . This [...] patient management decisions. Fact sheet for providers: https://www.fda.gov/media/433418/download Fact sheet for patients: https://www.fda.gov/media/484432/download This test has received FDA Emergency Use Authorization (EUA) and has been verified by [facility] ([facility]). This test is only authorized for the duration of time that circumstances exist to justify the authorization of the emergency use of in vitro diagnostic tests for the detection of SARS-CoV-2 virus and/or diagnosis of COVID-19 infection under section 564(b)(1) of the Act, 21 U.S.C. 360bbb-3(b)(1), unless the authorization is terminated or revoked sooner. [facility] is certified under CLIA-88 as qualified to perform high complexity testing. Testing is performed in the [facility] laboratories located at [address] [place] [address]. Performed By: #### C OVSC #### [address] [place] [address] Lab Specimen Source Nasal, Nasopharyngeal Normal [facility], [place] Comment on above: Performed By: #### C OVSC #### [address] [place] [address] Coronavirus 2019 RNA by PCR, Screening Asymptomticon [...] make patient management decisions.Fact sheet for providers: https://www.fda.gov/media/755343/downloadFact sheet for patients: https://www.fda.gov/media/254621/downloadThis test has received FDA Emergency Use Authorization (EUA) and has been verified by [facility] ([facility]). This test is only authorized for the duration of time that circumstances exist to justify the authorization of the emergency use of in vitro diagnostic tests for the detection of SARS-CoV-2 virus and/or diagnosis of COVID-19 infection under section 564(b)(1) of the Act, 21 U.S.C. 360bbb-3(b)(1), unless the authorization is terminated or revoked sooner. [facility] is certified under CLIA-88 as qualified to perform high complexity testing. Testing is performed in the [facility] laboratories located at [address] [place] [address]. Covid 19 Resultson SARS-CoV-2 (COVID-19) RNA ERIBERTO+probe [...] You may also be contacted by the [facility] to see if any of your close [...] or Naproxen (Aleve) can also be used. Sree-ctp-zkiwtjj cough and cold medicines can be used according to the instructions on the package. Some yrpv-ovz-gapzeos medicines also contain acetaminophen. Make sure you [...] water are not available, use alcohol-based hand multiple cut off saw operator. Avoid touching your eyes, nose, and mouth [...] Patient DemographicsName: PASCUAL ARNOLD Date: 1965 Address: [address] [place] [address] Date/Time [id number] 11:22 Primary Phone [phone] Call Attemptedleft message Instructions Givenanticoagulant meds - patient advised to consult ordering provider, appropriate clothing, bring glasses/contacts case, bring hearing aid(s), bring list of medications, bring responsible adult as the front end loader driver (procedure may be cancelled if no front end loader driver), time to arrive, remove jewerly/piercings, insurance information, diabetes meds - patient advised to consult ordering provider, center location How to be Addressedkevin Spoken Language PreferredEnglish Stated Reason for Admission fix my nose Primary Contact Name and Numberruth- Medications Brought to Hospitalno General Health: Weight in kg114.1 kilogram(s) Weight in zlz520.5 pound(s) Weight Methodactual (measured) Scale Typestanding Height in inch(es) Patient or Family Member Reaction to Anesthesiano previous reaction Blood Avoidance/Restrictionsnone Previous Transfusion Reactionno Health Mgmt: Symptoms/Conditions Managed at Homerespiratory; HEENT (head, eyes, ears, nose, throat) Respiratory Symptoms/Conditionsdeviate d septum per pt.; sleep disordered breathing Respiratory Management StrategiesCPAP Barriers to Managing Healthnone Relationship/Environ: Lives Withspouse Living Arrangementshouse Resource/Environmental Concernsnone Anticipated Transition [place] [facility] Anticipated at Transitionnone Tobacco Use: Tobacco Useno Pre-op Checklist: Arrival [id number] Arrival Time06:51 Procedure Typeseptoplasty NPOyes Last Food [id number]-[id number]-6678 19:00 ID Band On Patientpatient ID (name) [...] 07:06 by Valery Del Toro (VALENTIN) Normal [facility] CORONAVIRUS 2019, SCREEN ASY MPTOMATICon 08-21-2021 SARS-CoV-2 (COVID-19) RNA ERIBERTO+probe Ql (Unsp spec) Not detected Normal Not Detected [facility] Comment on above: Result Comment: . This [...] patient management decisions. Fact sheet for providers: https://www.fda.gov/media/925142/download Fact sheet for patients: https://www.fda.gov/media/785747/download This test has received FDA Emergency Use Authorization (EUA) and has been verified by [facility] ([facility]). This test is only authorized for the duration of time that circumstances exist to justify the authorization of the emergency use of in vitro diagnostic tests for the detection of SARS-CoV-2 virus and/or diagnosis of COVID-19 infection under section 564(b)(1) of the Act, 21 U.S.C. 360bbb-3(b)(1), unless the authorization is terminated or revoked sooner. [facility] is certified under CLIA-88 as qualified to perform high complexity testing. Testing is performed in the [facility] laboratories located at [address] [place] [address]. Performed By: #### C OVSC #### [facility] [address] [place] [address] Lab Specimen Source Nasal, Nasopharyngeal Normal [facility] [place] Comment on above: Performed By: #### C OVSC #### [facility] [address] [place] [address] Coronavirus 2019 RNA by PCR, Screening Asymptomticon [...] make patient management decisions.Fact sheet for providers: https://www.fda.gov/media/397542/downloadFact sheet for patients: https://www.fda.gov/media/181982/downloadThis test has received FDA Emergency Use Authorization (EUA) and has been verified by [facility] ([facility]). This test is only authorized for the duration of time that circumstances exist to justify the authorization of the emergency use of in vitro diagnostic tests for the detection of SARS-CoV-2 virus and/or diagnosis of COVID-19 infection under section 564(b)(1) of the Act, 21 U.S.C. 360bbb-3(b)(1), unless the authorization is terminated or revoked sooner. [facility] is certified under CLIA-88 as qualified to perform high complexity testing. Testing is performed in the [facility] laboratories located at [address] [place] [address]. Covid 19 Resultson 1 SARS-CoV-2 (COVID-19) RNA [...] You may also be contacted by the [facility] to see if any of your close [...] or Naproxen (Aleve) can also be used. Wjpu-guy-idigjnk cough and cold medicines can be used according to the instructions on the package. Some ibow-qtb-ikdhmjf medicines also contain acetaminophen. Make sure you [...] water are not available, use alcohol-based hand multiple cut off saw operator. Avoid touching your eyes, nose, and mouth [...] 24 raul (more content not included)... Normal [facility] BASIC METABOLIC PANELon 09-2 Anion gap [Moles/Vol] 11 mmol/L Normal 10 - 20 [facility] Comment on above: Performed By: #### B MP #### [address], [place] [id number] Calcium [Mass/Vol] 9.6 mg/dL Normal 8.6 - 10.3 [facility] Comment on above: Performed By: #### B MP #### [address], [place] [id number] Chloride [Moles/Vol] 101 mmol/L Normal 98 - 107 [facility] Comment on above: Performed By: #### B MP #### [address], [place] [id number] Creatinine [Mass/Vol] 0.93 mg/dL Normal 0.50 - 1.30 [facility] Comment on above: Performed By: #### B MP #### [address] [place], [place] [id number] GFR- AM. >60 Normal >60 [facility] Comment on above: Result Comment: CALC ULATIONS OF ESTIMATED GFR ARE PERFORMED USING THE MDRD STUDY EQUATION FOR THE IDMS-TRACEABLE CREATININE METHODS. CLIN CHEM 2007;53:766-72 Performed By: #### B MP #### [address] [place], [place] [id number] GFR-NON AM. >60 Normal >60 [facility] Comment on above: Performed By: #### B MP #### [address] [place], [place] [id number] Glucose [Mass/Vol] 98 mg/dL Normal 74 - 99 [facility] Comment on above: Performed By: #### B MP #### [facility] [address] [facility] [place] [id number] HCO3 (Bld) [Moles/Vol] 28 mmol/L Normal 21 - 32 [facility] Comment on above: Performed By: #### B MP #### [facility] [address] [facility] [place] [id number] Potassium [Moles/Vol] 4.1 mmol/L Normal 3.5 - 5.3 [facility] Comment on above: Performed By: #### B MP #### [facility] [address] [place] [address] [place], [place] [phone] Sodium [Moles/Vol] 136 mmol/L Normal 136 - 145 [facility] Comment on above: Performed By: #### B MP #### [facility] [id number] [place], [place] [address] [id number] Urea nitrogen [Mass/Vol] 18 mg/dL Normal 6 - 23 [facility] Comment on above: Performed By: #### B MP #### [facility] [id number] [place], [place] [address] [id number] CBCon 08-20-2021 Erythrocyte distribution width (RBC) [Ratio] 11.6 % Normal 11.5 - 14.5 [facility] Comment on above: Performed By: #### C BC #### [facility] [id number] [place], [place] [address] [id number] Hematocrit (Bld) [Volume fraction] 42.7 % Normal 41.0 - 52.0 [facility] Comment on above: Performed By: #### C BC #### [facility] [address] [facility] [place] [phone] Hemoglobin (Bld) [Mass/Vol] 14.5 g/dL Normal 13.5 - 17.5 [facility] Comment on above: Performed By: #### C BC #### [facility] [address] [place], [place] [address] [phone] MCHC (RBC) [Mass/Vol] 34.0 g/dL Normal 32.0 - 36.0 [facility] Comment on above: Performed By: #### C BC #### [facility] [address] [facility], [place] [id number] MCV (RBC) [Entitic vol] 93 fL Normal 80 - 100 [facility] Comment on above: Performed By: #### C BC #### [facility] [address] [facility], [place] [phone] Platelets (Bld) [#/Vol] 195 10*3/uL Normal 150 - 450 [facility] Comment on above: Performed By: #### C BC #### [facility] [address] [facility], [place] [id number] RBC 4.61 x10E12/L Normal 4.50 - 5.90 [facility] Comment on above: Performed By: #### C BC #### [facility] [address] [facility], [place] [phone] WBC (Bld) [#/Vol] 5.9 10*3/uL Normal 4.4 - 11.3 [facility] Comment on above: Performed By: #### C BC #### [facility] [address] [facility], [place] [id number] Laboratory - Chemistry and C hemistry - challengeon 08-20-2021 Anion gap [Moles/Vol] 11 mmol/L 10 - 20 [facility] Work Phone: Calcium [Mass/Vol] 9.6 mg/dL 8.6 - 10.3 [facility] laryngol [facility] Work Phone: Chloride [Moles/Vol] 101 [...] Sodium [Moles/Vol] 136 mmol/L 136 - 145 [facility] laryngol [facility] Work Phone: Urea nitrogen [Mass/Vol] [...] (Bld) [#/Vol] 5.9 10*3/uL 4.4 - 11.3 [facility] Work Phone: No Panel Informationon 08-20 >60 >60 [facility] Work Phone: Comment on above: CALCULATIONS OF JOSE MATED GFR ARE PERFORMED USING THE MDRD STUDY EQUATION FOR THE IDMS-TRACEABLE CREATININE METHODS. CLIN CHEM 2007;53:766-72 [email or web address] 1:8080 /musescripts/[email or web address].dll?R etrieveTestByDateTime?Maddy hydFA=[id number]&Date=&Time=12%3a34%3a23%3a 00&TestType=ECG&Site=6&Out putType=PDF&Ext=PDF [facility] Work Phone: Sinus [...] Nasopharynx: Clear, no discharge, no masses/lesions Modified Cotton Maneuver: Performed with a cotton tipped applicator, markedly improves breathing bilaterally. 'Scores and Scales' Signatures Electronically signed by : Marco Antonio Kang MD; 2021 8:41PM EST (Author) Normal [employer] Office Visit Presurgicalon 0 05-21-2021 Office Visit [...] Clinician Facility 08-21-2024 15:08-0400 Blood Pressure Location [facility] Trevor [facility] 08-21-2024 15:08-0400 Diastolic blood pressure 88 mm[Hg] [facility] 08-21-2024 15:08-0400 Heart rate 72 /min [facility] 08-21-2024 15:08-0400 Respiratory rate 16 /min [facility] 08-21-2024 15:08-0400 Systolic blood pressure 126 mm[Hg] [facility] 09-10-2022 13:00-0400 Body height 177.8 cm Giselle Walker Other [facility] Other 09-10-2022 13:00-0400 Body mass index (BMI) [Ratio] 34.29 kg/m2 Giselle Walker Other [facility] Other 09-10-2022 13:00-0400 Body temperature 98.4 [degF] Giselle Walker Other [facility] Other 09-10-2022 13:00-0400 Body weight 108.41 kg Giselle Walker Other [facility] Other 09-10-2022 13:00-0400 Respiratory rate 18 /min Giselle Walker Other [facility] Other 09-10-2022 13:00-0400 SaO2% (BldA) [Mass fraction] 97 % Giselle Aaron Other [employer] Other 11-10-2021 16:01-0500 Body height 177.8 cm Micha M Hoy Work Phone: AL-Sdbwjwtgfxmjca-Zt idman Work Phone: 11-10-2021 16:01-0500 Body mass index (BMI) [Ratio] 35.73 kg/m2 Micha M Hoy Work Phone: XK-Qyuzqebzmucvmc-Hx idman Work Phone: 11-10-2021 16:01-0500 Body surface area Derived from formula 2.29 m2 Micha M Hoy Work Phone: XO-Aeyfgengpwfspy-Rt idman Work Phone: 11-10-2021 16:01-0500 Body temperature 96.26 [degF] Micha M Hoy Work Phone: BA-Sanzeenxtfhvyt-Bk idman Work Phone: 11-10-2021 16:01-0500 Body weight 112.95 kg Micha M Hoy Work Phone: TI-Zbjlfybuazcoro-Os idman Work Phone: 09-29-2021 09:26-0400 Body height 177.8 cm Micha M Hoy Work Phone: AC-Asowpmyxscsdoo-Om idman Work Phone: 09-29-2021 09:26-0400 Body mass index (BMI) [Ratio] 36.03 kg/m2 Micha M Hoy Work Phone: FQ-Cxetpuyocefhbl-Np idman Work Phone: 09-29-2021 09:26-0400 Body surface area Derived from formula 2.3 m2 Micha M Hoy Work Phone: KV-Nitbkyugfqpgpy-Vi idtiffanie Work Phone: 09-29-2021 09:26-0400 Body temperature 97.4 [degF] Micha Martinez Work Phone: GS-Xqenjndofawaxh-Vn idtiffanie Work Phone: 09-29-2021 09:26-0400 Body weight 113.91 kg Micha Martinez Work Phone: KG-Cfxujptzlwvqlk-Fx idtiffanie Work Phone: 09-29-2021 09:26-0400 Respiratory rate 18 /min Micha Martinez Work Phone: UT-Eannqbtdprsrcj-Xo idtiffanie Work Phone: Encounters Encounter Date Encounter Type Care Provider Facility Start: 08-21-2024 ambulatory Maynor COULTER Facility :[facility] Start: 08-21-2024 End: 08-21-2024 Patient encounter procedure Maynor COULTER [facility] Start: 08-13-2024 ambulatory Maynor COULTER Facility:[facility] Start: 12-28-2022 End: 12-29-[address] MICHA MARTINEZ . Facility: Start: 12-21-2022 End: 12-22-[address] MICHA MARTINEZ . Facility:[facility] Start: 11-14-2022 Encounter for genera l adult medical examination without abnormal findings DR MICHA MARTINEZ . [facility] Start: 11-10-2022 End: 11-11-[address] MICHA MARTINEZ . Facility:[facility] Start: 11-10-2022 End: 11-11-2022 Encounter for general adult medical examination without abnormal findings DR MICHA MARTINEZ . Facility:[facility] Start: 09-10-2022 End: 09-10-2022 ambulatory Giselle Walker Other [facility] Other Start: 09-10-2022 Office outpatient vi sit 25 minutes iGselle Walker [facility] Start: 08-04-2022 End: 08-05-[address] MICHA MARTINEZ . Facility: Start: 11-10-2021 Patient encounter procedure Micha Martinez Work Phone: HE-Ytwwoorenkdrtj-Xubyyb n Work Phone: Start: 11-10-2021 Postop follow up vis it related to original px Micha Martinez Work Phone: ZI-Ixzpvknrksorqs-Wuqcqm ke Work Phone: Start: 09-29-2021 Postop follow up vis it related to original px Micha Martinez Work Phone: WN-Jdvgqqneciixpw-Tqznrg n Work Phone: Start: 09-22-2021 Chart Update Micha Martinez Work Phone: MX-Gbtiqyhypvsqim-Vvypfw an Work Phone: Start: 08-25-2021 Chart Update Micha Martinez Work Phone: DU-Stluumqsyhmcjm-Wadbyn an Work Phone: Procedures Date Procedure Procedure Detail Performing Clinician Start: 11-10-[address] LEON MARTINEZ . Comment on above: Performed By: #### P [facility] #### [facility] [address] [place] [address] Dr. Harika Valencia Appendectomy Maynor COULTER Colonoscopy Maynor COULTER Nasal septoplasty Maynor STEPHEN Plan of Treatment Date Care Activity Detail Author Start: 05-11-2022 FUV, Provider: Marco Antonio Kang, Status: Pen, Time: 1:15 PM FUV, Provider: Marco Antonio Kang, Status: Pen, Time: 1:15 PM NN-Cnogbxfoswqeuz-Xlv dman Work Phone: Start: 11-10-2021 FUV, Provider: Marco Antonio Kang, Status: Pen, Time: 3:45 PM FUV, Provider: Marco Antonio Kang, Status: Pen, Time: 3:45 PM BM-Uttpmofdfutjuy-Mkx dman Work Phone: Start: 09-22-2021 SURGWEST, Provider: Marco Antonio Kang, Status: Pen, Time: 10:00 AM SURGWEST, Provider: Marco Antonio Kang, Status: Pen, Time: 10:00 AM FV-Iicrxowspisqpv-Xro urban Work Phone: Immunizations Immunization Date Immunization Notes Care Provider Fa [facility] 10-18-2021 SARS-CoV-2 (COVID-19 ) mRNA BNT-162b2 vax Maynor NILL [facility] 03-02-2021 SARS-CoV-2 (COVID-19 ) mRNA BNT-162b2 vax Maynor NILL [facility] 02-08-2021 SARS-CoV-2 (COVID-19 ) mRNA BNT-162b2 vax Maynor NILL [facility] Payers Date Payer Category Payer Unknown [id number] 2.16.84 [id number] 1965 Unknown [id number] 2.16.84 [id number] 1965 Unknown [id number] 2.16.84 [id number] 1965 Unknown [id number] 2.16.84 [id number] 1965 Unknown [id number] 2.16.8 [id number] 1965 Unknown [id number] 2.16.8 [id number] 1959 Unknown [id number] 2.16. [id number] 1960 Unknown [id number] Unknown Social History Date Type Detail Facility Sex Assigned At [facility] Start: 08-21-2024 Tobacco smoking status Never s moked tobacco (finding) [facility] Tobacco smoking status Never [facility] Functional Status Date Assessment Result Facility 08-21-2024 Functional Status N/A [facility] Evaluation note 09-10-2022 Note Date & Type [...] fever/discomfort , cool mist humidifier. May use [place] as needed for cough, do not take any other OTCs while using [place]. Patient to follow up with PCP in 2-3 days. Immediate eval if SOB, difficulty breathing, chest pain, dizziness, or other concerning symptoms. Patient verbalizes understanding and is agreeable to treatment plan Aug, Contact with and (suspected) exposure to covid-19 (ICD-10 - Z20.822) [facility] Other History of Present illness Narrative 09-22-2021 Note Date & Type Note Facility 09-22-2021 History of Present illness Narrative doing well. here for splint removal. STR, NVR POV surgery 09/22nasal splints removednasal swelling expectedseptum midlinenasal airway patent blcontinue saline sprays and vaseline ointment to naresRTC 4-6 weeks XR-Glepyaxamihpgw-Ufasabk Work Phone: History of Present illness Narrative 09-22-2021 Note Date & Type Note Facility 09-22-2021 History of Present illness Narrative doing well. STR, NVR POV surgery 09/22nasal swelling expectedseptum midlinenasal airway patent blcontinue saline sprays and vaseline ointment to naresRTC 4-6 months RM-Vsctpzmfctthri-Pgwouvet Work Phone: Clinical Note 09-22-2021 Note Date & Type Note Facility 09-22-2021 Note PROCEDURE DETAILS Preoperative Diagnosis: Deviated nasal septum, J34.2 Other specified disorders of nose and nasal sinuses, J34.89 Postoperative Diagnosis: same Surgeon: Marco Antonio Kang Resident/Fellow/Other Radiology Supervisor: None of these were associated with this [...] reduction and lateralization was then performed. A [employer] fine needle tip bovie electrocautery was used to perform intramural cauterization for submucous resection bilaterally. A [place] elevator was then used to outfracture the [...] Updated: 22-Sep-2021 09:44 by Marco Antonio Kang) [facility] Clinical Note 09-22-2021 Note Date & Type [...] Updated: 22-Sep-2021 07:33 by Marco Antonio Kang) [facility] Evaluation + Plan note Note Date & Type Note Facility Evaluation + Plan note No data available for this section [facility] [employer] History general Narrative - Reported Note Date & Type Note Facility History general Narrative - Reported Type Surgical History deviated septum repair 2020 Hospitalization History see above [facility] Other [facility] Discharge instructions Note Date & Type Note Facility Hospital Discharge instructions No data available for this section [facility] [employer] Progress note Note Date & Type Note Facility Progress note No data available for this section [facility] [employer] Summary Purpose Family History No Family History [...] section and content) DATE CREATED AUTHOR 08/25/2021 [facility] DATE CREATED AUTHOR AUTHOR'S ORGANIZ ATION 11/13/2021 [employer] DATE CREATED AUTHOR AUTHOR'S ORGANIZ ATION 11/14/2021 [facility] DATE CREATED AUTHOR AUTHOR'S ORGANIZ ATION 01/16/2023 [facility] DATE CREATED AUTHOR AUTHOR'S ORGANIZ ATION 08/20/2024 Rigo Chong [facility] REASON FOR VISIT (unrecogniz ed section and content) SORE THROAT, EAR PAIN Patient Care team informatio n (unrecognized section and content) Personnel Name: Micha Martinez MD Address: Address: [address] [place] [address] FOR RECORDS PERTAINING TO PATIENTS WHO ARE [...] BE BASED ON THE PRIMARY CLINICAL RECORDS. [facility] [employer] provides no warranty or guarantee of the accuracy or completeness of information in this document.
== END 2024-09-24 14:46 | disposition home or self-care (01) ==
LOC: PST 14:45
PROVIDERS: PCP Family Medicine; Visit Provider Surgery
DX: Z01.818 Encounter for other preprocedural examination (principal); Z12.11 Encounter for screening for malignant neoplasm of colon

== ENCOUNTER 2024-10-02 06:53 | Day surgery (SDC) | payer OTHER, SELFPAY ==
--- NOTE | 2024-10-02 | OP_ITS ---
OPERATION DATE: 10/02/2024 PREOPERATIVE DIAGNOSIS: Colorectal screening. POSTOPERATIVE DIAGNOSIS: Severe sigmoid diverticulosis, as well as 7 mm sessile polyp in the distal sigmoid colon. PROCEDURE: Colonoscopy to cecum with cold snare polypectomy x1. SURGEON: Maynor Rivas M.D. ANESTHESIA: Monitored anesthesia care. ESTIMATED BLOOD LOSS: Less than 1 mL. INDICATIONS AND CONSENT: Patient is a 59-year-old male presents for colorectal screening. Indications, risks, benefits, alternatives of proceeding with colonoscopy were explained extensively to the patient, including the risks of bleeding, colon perforation or anesthetic complications. All of his questions were answered. Informed consent was obtained. PROCEDURE: Patient brought to the operating room, placed in the left lateral decubitus position. Monitored anesthesia care was provided. Rectal exam was performed which showed no masses or blood. The scope was inserted into the anal canal. Under direct visualization was advanced. It was advanced to the cecum where cecal markings were clearly identified. Upon withdrawal of the scope, mucosal surfaces were carefully examined. There was noted to be a good prep. There were no mass lesions or inflammatory changes. There was severe sigmoid diverticulosis without inflammatory changes or scarring. In the distal sigmoid, there was noted to be a 7 mm, sessile, erythematous polyp that was removed with cold snare with good hemostasis. The scope was retroflexed in the anal canal. There was no significant hemorrhoidal disease. There were prominent rectal veins. The scope was then withdrawn. Patient tolerated procedure well, was sent to recovery room in good condition. Follow up colonoscopy likely in five years, but will depend on the pathology results. CC: Victor Hugo Martinez M.D. JAMI
--- OUTSIDE RECORDS SUMMARY | 2024-10-02 06:55 | XMS_ITS | CCD ---
Author Organization [facility] Care Team Providers Care Telephone Assembler Name Role Phone Micha Martinez Unavailable Unavailable Unavailable Giselle Walker Unavailable VITOR ., DR UMSE Admitting Unavailable HOY ., DR MUSE Attending [...] Attending Unavailable Micha Martinez Primary Care Physician [phone] Allergies Allergy Classification Reported Allergen(s) Allergy Type Date of Onset Reaction(s) Facility (1 source) No Known Medication Allergies; Translations: [No Known Medication Allergies] Propensity to adverse reactions (disorder) [facility] Repository Medications Current Medications Medication Drug Class(es) Dates Sig (Normalized) Sig (Original) [id number] 200 actuat albuterol 0.09 mg/actuat metered dose inhaler (1 source) beta2-Adrenergic Agonist Start: 2 take 2 puff(s) by inhalation every four to six hours as needed Albuterol Sulfate HFA 108 (90 Base) MCG/ACT 2 puffs as needed Inhalation every 4-6 hours for 14 days Aug, Active dextromethorphan hydrobromide 1.5 mg/ml / pyrilamine maleate 1.5 mg/ml oral solution (1 source) Uncompetitive I-kkebze-E-aspart[place] te Receptor Antagonist, Sigma-1 Agonist Start: 2 take 10 mL by mouth every eight hours [place] DM 7.5-7.5 MG/5ML 10 mL Orally every [...] DUTCH HAMM Date: 2022-12-28 10:37 Normal [facility] CA 19-9on 12-22-2022 CA 19-9 11 U/mL Normal 0-35 [facility] Comment on above: Result Comment: [employer] Electrochemiluminescence Immunoassay (ECLIA) . Values obtained with different assay methods or kits cannot be used interchangeably. Results cannot be interpreted as absolute evidence of the presence or absence of malignant disease. Performed By: #### C A 19,9 #### [facility] [address] [place] [address] Dr. Harika Valencia AMYLASEon 12-21-2022 Amylase [Catalytic activity/Vol] 50 U/L Normal 25-[address] [facility] Comment on above: Performed By: #### L IPA, CMP, AUNDREA #### [facility] [address] [place] [address] Dr. Harika Valencia CBC AUTO DIFFon 12-21-2022 BASO # 0.0 103/ul Normal 0.0-0.[address] [facility] Comment on above: Performed By: #### C BC #### [facility] [address] [place] [address] Dr. Harika Valencia Basophils/100 WBC (Bld) 0.4 % Normal 0.2-2.[address] [facility] Comment on above: Performed By: #### C BC #### [facility] [address] [place] [address] Dr. Harika Valencia EO # 0.1 103/ul Normal 0.0-0.[address] [facility] Comment on above: Performed By: #### C BC #### [facility] [address] [place] [address] Dr. Harika Valencia Eosinophils/100 WBC (Bld) 1.6 % Normal 0.9-7.[address] [facility] Comment on above: Performed By: #### C BC #### [facility] [address] [place] [address] Dr. Harika Valencia Erythrocyte distribution width (RBC) [Ratio] 12.0 % Normal 11.0-15.[address] [facility] Comment on above: Performed By: #### C BC #### [facility] [address] [place] [address] Dr. Harika Valencia Hematocrit (Bld) [Volume fraction] 46.4 % Normal 42.0-54.[address] [facility] Comment on above: Performed By: #### C BC #### [facility] [address] [place] [address] Dr. Harika Valencia Hemoglobin (Bld) [Mass/Vol] 15.2 g/dL Normal 14.0-18.[address] [facility] Comment on above: Performed By: #### C BC #### [facility] [address] [place] [address] Dr. Harika Valencia IG # 0.01 10e3/ul Normal 0.00-0.[address] [facility] Comment on above: Performed By: #### C BC #### [facility] [address] [place] [address] Dr. Harika Valencia IG % 0.2 % Normal 0.0-0.[address] [facility] Comment on above: Performed By: #### C BC #### [facility] [address] [place] [address] Dr. Harika Valencia LYMPH # 1.8 103/ul Normal 1.2-3.[address] [facility] Comment on above: Performed By: #### C BC #### [facility] [address] [place] [address] Dr. Harika Valencia Lymphocytes/100 WBC (Bld) 35.1 % Normal 20.5-60.[address] [facility] Comment on above: Performed By: #### C BC #### [facility] [address] [place] [address] Dr. Harika Valencia MANUAL DIFF REQ NO Normal [facility] Comment on above: Performed By: #### C BC #### [facility] [address] [place] [address] Dr. Harika Valencia MCH (RBC) [Entitic mass] 31.5 pg Normal 25.9-34.[address] [facility] Comment on above: Performed By: #### C BC #### [facility] [address] [place] [address] Dr. Harika Valencia MCHC (RBC) [Mass/Vol] 32.8 g/dL Normal 29.9-35.[address] [facility] Comment on above: Performed By: #### C BC #### [facility] [address] [place] [address] Dr. Harika Valencia MCV (RBC) [Entitic vol] 96.1 fL Critically high 80.0-94.[address] [facility] Comment on above: Performed By: #### C BC #### [facility] [address] [address] [address] Harika Valencia MONO # 0.4 103/ul Normal 0.3-0.[address] [facility] Comment on above: Performed By: #### C BC #### [facility] [address] [address] [address] Harika Valencia Monocytes/100 WBC (Bld) 8.0 % Normal 1.7-12.[address] [facility] Comment on above: Performed By: #### C BC #### [facility] [address] [place] [address] Dr. Harika Valencia NEUT # 2.8 103/ul Normal 1.4-6.[address] [facility] Comment on above: Performed By: #### C BC #### [facility] [address] [place] [address] Dr. Harika Valencia Neutrophils/100 WBC (Bld) 54.7 % Normal 43.0-75.[address] [facility] Comment on above: Performed By: #### C BC #### [facility] [address] [place] [address] Dr. Harika Valencia Platelet mean volume (Bld) [Entitic vol] 8.8 fL Critically low 9.5-13.[address] [facility] Comment on above: Performed By: #### C BC #### [facility] [address] [place] [address] Dr. Harika Valencia PLT 201 103/ul Normal 150-450 [facility] Comment on above: Performed By: #### C BC #### [facility] [address] [place] [address] Dr. Harika Valencia RBC 4.83 106/ul Normal 4.70-6.10 [facility] Comment on above: Performed By: #### C BC #### [facility] [address] [place] [address] Dr. Harika Valencia WBC 5.1 103/ul Normal 4.0-11.0 [facility] Comment on above: Performed By: #### C BC #### [facility] [address] [address] [address] Harika Valencia LIPASEon 12-21-2022 Lipase [Catalytic activity/Vol] 129.0 U/L Normal 73.0-393.[address] [facility] Comment on above: Performed By: #### L IPA, CMP, AUNDREA #### [facility] [address] [place] [address] Dr. Harika Valencia PROF 14(COMP METB)on 023 Albumin [Mass/Vol] 4.1 g/dL Normal 3.4-5.0 [facility] Comment on above: Performed By: #### L IPA, CMP, AUNDREA #### [facility] [address] [place] [address] Dr. Harika Valencia Albumin/Globulin [Mass ratio] 1.0 {ratio} Normal [facility] Comment on above: Performed By: #### L IPA, CMP, AUNDREA #### [facility] [address] [place] [address] Dr. Harika Valencia ALP [Catalytic activity/Vol] 55 U/L Normal 46-[address] [facility] Comment on above: Performed By: #### L IPA, CMP, AUNDREA #### [facility] [address] [place] [address] Dr. Harika Valencia ALT [Catalytic activity/Vol] 62 U/L Normal 16-[address] [facility] Comment on above: Performed By: #### L IPA, CMP, AUNDREA #### [facility] [address] [place] [address] Dr. Harika Valencia Anion gap [Moles/Vol] 12.4 mmol/L Normal [facility] Comment on above: Performed By: #### L IPA, CMP, AUNDREA #### [facility] [address] [place] [address] Dr. Harika Valencia AST [Catalytic activity/Vol] 34 U/L Normal 15-[address] [facility] Comment on above: Performed By: #### L IPA, CMP, AUNDREA #### [facility] [address] [place] [address] Dr. Harika Valencia Bilirubin [Mass/Vol] 0.7 mg/dL Normal 0.2-1.0 [facility] Comment on above: Performed By: #### L IPA, CMP, AUNDREA #### [facility] [address] [place] [address] Dr. Harika Valencia Calcium [Mass/Vol] 9.3 mg/dL Normal 8.5-10.1 [facility] Comment on above: Performed By: #### L IPA, CMP, AUNDREA #### [facility] [address] [place] [address] Dr. Harika Valencia Chloride [Moles/Vol] 100 mmol/L Normal 98-[address] [facility] Comment on above: Performed By: #### L IPA, CMP, AUNDREA #### [facility] [address] [place] [address] Dr. Harika Valencia CO2 [Moles/Vol] 27.6 mmol/L Normal 21.0-32.0 [facility] Comment on above: Performed By: #### L IPA, CMP, AUNDREA #### [facility] [address] [place] [address] Dr. Harika Valencia Creatinine [Mass/Vol] 0.83 mg/dL Normal 0.70-1.[address] [facility] Comment on above: Performed By: #### L IPA, CMP, AUNDREA #### [facility] [address] [place] [address] Dr. Harika Valencia EGFR-AF PAPUA NEW GUINEAN >60 Normal >=60 [facility] Comment on above: Performed By: #### L IPA, CMP, AUNDREA #### [facility] [address] [place] [address] Dr. Harika Valencia EGFR-NON AF PAPUA NEW GUINEAN >60 Normal >=[address] [facility] Comment on above: Performed By: #### L IPA, CMP, AUNDREA #### [facility] [address] [place] [address] Dr. Harika Valencia Globulin (S) [Mass/Vol] 4.0 g/dL Normal [facility] Comment on above: Performed By: #### L IPA, CMP, AUNDREA #### [facility] [address] [place] [address] Dr. Harika Valencia Glucose [Mass/Vol] 98 mg/dL Normal 74-106 [facility] Comment on above: Performed By: #### L IPA, CMP, AUNDREA #### [facility] [address] [place] [address] Dr. Harika Valencia Potassium [Moles/Vol] 4.0 mmol/L Normal 3.5-5.[address] [facility] Comment on above: Performed By: #### L IPA, CMP, AUNDREA #### [facility] [address] [place] [address] Dr. Harika Valencia Protein [Mass/Vol] 8.1 g/dL Normal 6.4-8.2 [facility] Comment on above: Performed By: #### L IPA CMP, AUNDREA #### [facility] [address] [place] [address] Dr. Harika Valencia Sodium [Moles/Vol] 136 mmol/L Normal 136-145 [facility] Comment on above: Performed By: #### L IPA, CMP, AUNDREA #### [facility] [address] [place] [address] Dr. Harika Valencia Urea nitrogen [Mass/Vol] 15.0 mg/dL Normal 7.0-18.[address] [facility] Comment on above: Performed By: #### L IPA CMP, AUNDREA #### [facility] [address] [place] [address] Dr. Harika Valencia Urea nitrogen/Creatinin e [Mass ratio] 18.1 mg/mg Normal [facility] Comment on above: Performed By: #### L IPA, CMP, AUNDREA #### [facility] [address] [place] [address] Dr. Harika Valencia INSULINon 11-11-2022 Insulin 24.7 uIU/mL Normal 2.6-24.9 [facility] Comment on above: Performed By: #### I NSULIN ####[facility] [id number] [address]Dr. Harika Valencia CBC AUTO DIFFon 11-10-2022 BASO # 0.0 103/ul Normal 0.0-0.[address] [facility] Comment on above: Performed By: #### C BC #### [facility] [address] [place] [address] Dr. Harika Valencia Basophils/100 WBC (Bld) 0.4 % Normal 0.2-2.[address] [facility] Comment on above: Performed By: #### C BC #### [facility] [address] [place] [address] Dr. Harika Valencia EO # 0.1 103/ul Normal 0.0-0.7 [facility] Comment on above: Performed By: #### C BC #### [facility] [address] [place] [address] Dr. Harika Valencia Eosinophils/100 WBC (Bld) 2.2 % Normal 0.9-7.[address] [facility] Comment on above: Performed By: #### C BC #### [facility] [address] [place] [address] Dr. Harika Valencia Erythrocyte distribution width (RBC) [Ratio] 12.0 % Normal 11.0-15.[address] [facility] Comment on above: Performed By: #### C BC #### [facility] [address] [place] [address] Dr. Harika Valencia Hematocrit (Bld) [Volume fraction] 41.2 % Critically low 42.0-54.[address] [facility] Comment on above: Performed By: #### C BC #### [facility] [address] [place] [address] Dr. Hairka Valencia Hemoglobin (Bld) [Mass/Vol] 14.2 g/dL Normal 14.0-18.[address] [facility] Comment on above: Performed By: #### C BC #### [facility] [address] [place] [address] Dr. Harika Valencia IG # 0.02 10e3/ul Normal 0.00-0.03 [facility] Comment on above: Performed By: #### C BC #### [facility] [address] [place] [address] Dr. Harika Valencia IG % 0.4 % Normal 0.0-0.5 [facility] Comment on above: Performed By: #### C BC #### [facility] [address] [address] [address] Harika Valencia LYMPH # 1.7 103/ul Normal 1.2-3.8 [facility] Comment on above: Performed By: #### C BC #### [facility] [address] [address] [address] Harika Valencia Lymphocytes/100 WBC (Bld) 37.4 % Normal 20.5-60.[address] [facility] Comment on above: Performed By: #### C BC #### [facility] [address] [place] [address] Dr. Harika Valencia MANUAL DIFF REQ NO Normal [facility] Comment on above: Performed By: #### C BC #### [facility] [address] [place] [address] Dr. Harika Valencia MCH (RBC) [Entitic mass] 31.0 pg Normal 25.9-34.[address] [facility] Comment on above: Performed By: #### C BC #### [facility] [address] [place] [address] Dr. Harika Valencia MCHC (RBC) [Mass/Vol] 34.5 g/dL Normal 29.9-35.[address] [facility] Comment on above: Performed By: #### C BC #### [facility] [address] [place] [address] Dr. Harika Valencia MCV (RBC) [Entitic vol] 90.0 fL Normal 80.0-94.[address] [facility] Comment on above: Performed By: #### C BC #### [facility] [address] [place] [address] Dr. Harika Valencia MONO # 0.5 103/ul Normal 0.3-0.8 [facility] Comment on above: Performed By: #### C BC #### [facility] [address] [place] [address] Dr. Harika Valencia Monocytes/100 WBC (Bld) 11.1 % Normal 1.7-12.[address] [facility] Comment on above: Performed By: #### C BC #### [facility] [address] [address] [address] Harika Valencia NEUT # 2.2 103/ul Normal 1.4-6.[address] [facility] Comment on above: Performed By: #### C BC #### [facility] [address] [address] [address] Harika Valencia Neutrophils/100 WBC (Bld) 48.5 % Normal 43.0-75.[address] [facility] Comment on above: Performed By: #### C BC #### [facility] [address] [address] [address] Harika Valencia Platelet mean volume (Bld) [Entitic vol] 9.1 fL Critically low 9.5-13.5 [facility] Comment on above: Performed By: #### C BC #### [facility] [address] [address] [address] Harika Valencia PLT 189 103/ul Normal 150-450 [facility] Comment on above: Performed By: #### C BC #### [facility] [address] [address] [address] Harika Valencia RBC 4.58 106/ul Critically low 4.70-6.10 [facility] Comment on above: Performed By: #### C BC #### [facility] [address] [address] [address] Harika Valencia WBC 4.5 103/ul Normal 4.0-11.0 [facility] Comment on above: Performed By: #### C BC #### [facility] [address] [address] [address] Harika Valencia FREE THYROXINE INDEX T7on FTI 1.86 Normal 1.30-4.50 [facility] Comment on above: Performed By: #### T SH, T7, CMP, URIC, LIPID ####[facility] [id number] [id number]. Harika Valencia T3U 32.0 % Critically low 33.0-40.0 [facility] Comment on above: Performed By: #### T SH, T7, CMP, URIC, LIPID ####[facility] [address] [place], [place] [address]RkDr. Harika Valencia T4 [Mass/Vol] 5.80 ug/dL Normal 4.50-12.10 [facility] Comment on above: Performed By: #### T SH, T7, CMP, URIC, LIPID ####[facility] [address] [place], [place] [address]OzDr. Harika Valencia GLYCOHEMOGLOBIN A1Con 2021 ADA RECOMMENDATION SEE BELOW Normal [facility] Comment on above: Result Comment: ADA RECOMMENDED LIMIT 4.0 - 6.0 ADA THERAPEUTIC TARGET < 7.0 ACTION SUGGESTED > 7.0 Performed By: #### A 1C #### [facility] [address] [address] [address] Harika Valencia Glucose [Mass/Vol] 143 mg/dL Normal [facility] Comment on above: Performed By: #### A 1C #### [facility] [address] [address] [address] Harika Valencia HbA1c (Bld) [Mass fraction] 6.6 % Critically high 4.5-6.[address] [facility] Comment on above: Performed By: #### A 1C #### [facility] [address] [address] [address] Harika Valencia LIPID PROFILEon 11-10-2022 CHOL-HDL RATIO NORM SEE BELOW Normal [facility] Comment on above: Result Comment: 3.3 - 4.4 LOW RISK 4.4 - 7.1 AVERAGE RISK 7.1 - 11.0 MODERATE RISK >11.0 HIGH RISK Performed By: #### T SH, T7, CMP, URIC, LIPID ####[facility] [address] [place], [place] [address]IgDr. Harika Valencia Cholesterol [Mass/Vol] 174 mg/dL Normal <=200 [facility] Comment on above: Performed By: #### T SH, T7, CMP, URIC, LIPID ####[facility] [address] [place], [place] [address]QiDr. Harika Valencia Cholesterol in HDL [Mass/Vol] 52 mg/dL Normal 40-[address] [facility] Comment on above: Performed By: #### T SH, T7, CMP, URIC, LIPID ####[facility] [address] [id number]. Harika Valencia Cholesterol in LDL [Mass/Vol] 95.6 mg/dL Normal [facility] Comment on above: Performed By: #### T SH, T7, CMP, URIC, LIPID ####[facility] [address] [id number]. Harika Valencia Cholesterol.total/ Cholesterol in HDL [Mass ratio] 3.3 {ratio} Normal [facility] Comment on above: Performed By: #### T SH, T7, CMP, URIC, LIPID ####[facility] [address] [id number]. Harika Valencia HDL NORMAL > or = 60 mg/dl - LO W CARDIOVASCULAR RISK <40 mg/dl - HIGH CARDIOVASCULAR RISK Normal [facility] Comment on above: Performed By: #### T SH, T7, CMP, URIC, LIPID ####[facility] [address] [address]Dr. Harika Valencia LDL CALC NORMAL SEE BELOW Normal [facility] Comment on above: Result Comment: <100 mg/dl OPTIMAL 100 - 129 mg/dl NEAR OR ABOVE OPTIMAL 130 - 159 mg/dl BORDERLINE HIGH 160 - 189 mg/dl HIGH >190 mg/dl VERY HIGH Performed By: #### T SH, T7, CMP, URIC, LIPID ####[facility] [address] [id number]. Harika Valencia Triglyceride [Mass/Vol] 132 mg/dL Normal <=150 [facility] Comment on above: Performed By: #### T SH, T7, CMP, URIC, LIPID ####[facility] [address] [place] [id number]. Harika Valencia VLDL CALC 26.4 mg/dL Normal [facility] Comment on above: Performed By: #### T SH, T7, CMP, URIC, LIPID ####[facility] [address] [id number]. Harika Valencia PROF 14(COMP METB)on 022 Albumin [Mass/Vol] 3.8 g/dL Normal 3.4-5.0 [facility] Comment on above: Performed By: #### T SH, T7, CMP, URIC, LIPID ####[facility] [address] [address]Dr. Harika Valencia Albumin/Globulin [Mass ratio] 1.0 {ratio} Normal [facility] Comment on above: Performed By: #### T SH, T7, CMP, URIC, LIPID ####[facility] [address] [address]Dr. Leigh Annave Valencia ALP [Catalytic activity/Vol] 44 U/L Critically low 46-116 [facility] Comment on above: Performed By: #### T SH, T7, CMP, URIC, LIPID ####[facility] [address] [place], [place] [address]Dr. Harika Valencia ALT [Catalytic activity/Vol] 55 U/L Normal 16-63 [facility] Comment on above: Performed By: #### T SH, T7, CMP, URIC, LIPID ####[facility] [address] [place], [place] [address]Dr. Harika Valencia Anion gap [Moles/Vol] 12.8 mmol/L Normal [facility] Comment on above: Performed By: #### T SH, T7, CMP, URIC, LIPID ####[facility] [address] [address]Dr. Harika Valencia AST [Catalytic activity/Vol] 26 U/L Normal 15-37 [facility] Comment on above: Performed By: #### T SH, T7, CMP, URIC, LIPID ####[facility] [facility] Y[address] [place], [place] [address]Dr. Harika Valencia Bilirubin [Mass/Vol] 0.5 mg/dL Normal 0.2-1.0 [facility] Comment on above: Performed By: #### T SH, T7, CMP, URIC, LIPID ####[facility] [address] [place] [address]Dr. Harika Valencia Calcium [Mass/Vol] 9.0 mg/dL Normal 8.5-10.1 [facility] Comment on above: Performed By: #### T SH, T7, CMP, URIC, LIPID ####[facility] [address] [place] [address]Dr. Harika Valencia Chloride [Moles/Vol] 103 mmol/L Normal 98-107 [facility] Comment on above: Performed By: #### T SH, T7, CMP, URIC, LIPID ####[facility] [address] [place] [address]Dr. Harika Valencia CO2 [Moles/Vol] 27.2 mmol/L Normal 21.0-32.0 [facility] Comment on above: Performed By: #### T SH, T7, CMP, URIC, LIPID ####[facility] [address] [place] [address]Dr. Harika Valencia Creatinine [Mass/Vol] 0.79 mg/dL Normal 0.70-1.[address] [facility] Comment on above: Performed By: #### T SH, T7, CMP, URIC, LIPID ####[facility] [address] [place], [place] [address]Dr. Harika Valencia EGFR-AF PAPUA [place] >60 Normal >=60 [facility] Comment on above: Performed By: #### T SH, T7, CMP, URIC, LIPID ####[facility] [address] [place], [place] [address]Dr. Harika Valencia EGFR-NON AF PAPUA [place] >60 Normal >=[address] [facility] Comment on above: Performed By: #### T SH, T7, CMP, URIC, LIPID ####[facility] [address] [place] [address]Dr. Harika Valencia Globulin (S) [Mass/Vol] 3.8 g/dL Normal [facility] Comment on above: Performed By: #### T SH, T7, CMP, URIC, LIPID ####[facility] [address] [place] [address]Dr. Harika Valencia Glucose [Mass/Vol] 117 mg/dL Critically high 74-106 [facility] Comment on above: Performed By: #### T SH, T7, CMP, URIC, LIPID ####[facility] Qk[address]ujmi[address] [place] [id number]. Harika Valencia Potassium [Moles/Vol] 4.0 mmol/L Normal 3.5-5.1 [facility] Comment on above: Performed By: #### T SH, T7, CMP, URIC, LIPID ####[facility] [address]wgwg[address] [place] [address]Dr. Harika Valencia Protein [Mass/Vol] 7.6 g/dL Normal 6.4-8.2 [facility] Comment on above: Performed By: #### T SH, T7, CMP, URIC, LIPID ####[facility] [address] [place] [address]Dr. Harika Valencia Sodium [Moles/Vol] 139 mmol/L Normal 136-145 [facility] Comment on above: Performed By: #### T SH, T7, CMP, URIC, LIPID ####[facility] [address] [place] [address]Dr. Harika Valencia Urea nitrogen [Mass/Vol] 14.0 mg/dL Normal 7.0-18.0 [facility] Comment on above: Performed By: #### T SH, T7, CMP, URIC, LIPID ####[facility] [address]sw[address] [place] [address]Dr. Harika Valencia Urea nitrogen/Creatinin e [Mass ratio] 17.7 mg/mg Normal [facility] Comment on above: Performed By: #### T SH, T7, CMP, URIC, LIPID ####[facility] [address] [place] [address]Dr. Harika Valencia TSHon 11-10-2022 TSH 2.508 uIU/mL Normal 0.358-3.740 The [facility] Comment on above: Performed By: #### T SH, T7, CMP, URIC, LIPID ####[facility] [address]ib[address] [place] [address]Dr. Harika Valencia URIC ACID SERUMon 11-10-2022 Urate [Mass/Vol] 5.0 mg/dL Normal 3.5-7.2 [facility] Comment on above: Performed By: #### T SH, T7, CMP, URIC, LIPID ####[facility] [address] [place], [place] [address]XjKayden Valencia COVID/FLU/RSV RT-PCRon 09-10 SARS-CoV-2 (COVID-19) RNA ERIBERTO+probe Ql (Unsp spec) Negative [employer] Other COVID/FLU/RSV RT-PCR Negative [employer] Other Quick Strepon 09-10-2022 S. pyogenes Org specific cx Ql (Throat) Negative [employer] Other Quick Strep [employer] Other XR CHEST 2 Von 08-04-2022 XR [...] YOLETTE BUNN Date: 2022-08-04 11:52 Normal [facility] Initial Visit (Otolaryngolog y)on 11-10-2021 Initial Visit [...] Medication NameInstruction Allergy TABS OneTouch Delica Plus Yajgyq64L OneTouch Verio In Vitro Strip Vitals Vital Signs Recorded: [id number] 04:01PM Ltqapytbapp04.7 C Height5 ft 10 in Towuuv290 lb BMI Fbelucngrx90.73 kg/m2 BSA Calculated2.29 Tobacco Useb) No Fall Screeninga) No falls within the last year 'Scores and Scales' Signatures Electronically signed by : Marco Antonio Kang MD; Nov 12 2021 2:08PM EST (Author) Normal [facility] Tobacco Screening.on Fall risk assessment a) No [...] TABS Vitals Vital Signs Recorded: 29Sep2021 09:26AM Dozexximmdm82.4 F Duxfmusbgkm93 Height5 ft 10 in Mrpxgw860 lb 1.98 oz BMI Imodzywsnz73.03 kg/m2 BSA Calculated2.3 Tobacco Useb) No Fall Screeninga) No falls within the last year 'Scores and Scales' Signatures Electronically signed by : Marco Antonio Kang MD; Sep 29 2021 10:25AM EST (Author) Normal [facility] Tobacco Screening.on Fall risk assessment a) No [...] be shared with your follow-up providers (doctor, fret saw operator, physical therapist, etc.). Follow Up with with physician in [address] or operate motor vehicles for 24 hours. [place] 0.65% nasal spray 2 spray(s) intranasally every [...] Discharge D (more content not included)... Normal [facility] CORONAVIRUS 2019, SCREEN ASY MPTOMATICon 09-20-2021 SARS-CoV-2 (COVID-19) RNA ERIBERTO+probe Ql (Unsp spec) Not detected Normal Not Detected [facility] Comment on above: Result Comment: . [...] patient management decisions. Fact sheet for providers: https://www.fda.gov/media/050697/download Fact sheet for patients: https://www.fda.gov/media/300793/download This test has received FDA Emergency Use Authorization (EUA) and has been verified by [facility] ([facility]). This test is only authorized for the duration of time that circumstances exist to justify the authorization of the emergency use of in vitro diagnostic tests for the detection of SARS-CoV-2 virus and/or diagnosis of COVID-19 infection under section 564(b)(1) of the Act, 21 U.S.C. 360bbb-3(b)(1), unless the authorization is terminated or revoked sooner. [facility] is certified under CLIA-88 as qualified to perform high complexity testing. Testing is performed in the [facility] laboratories located at [address] [place] [address]. Performed By: #### C OVSC #### [address] [place] [address] Lab Specimen Source Nasal, Nasopharyngeal Normal [facility] Comment on above: Performed By: #### C OVSC #### [address] [place] [address] Coronavirus 2019 RNA by PCR, Screening Asymptomticon [...] make patient management decisions.Fact sheet for providers: https://www.fda.gov/media/768020/downloadFact sheet for patients: https://www.fda.gov/media/814801/downloadThis test has received FDA Emergency Use Authorization (EUA) and has been verified by [facility] ([facility]). This test is only authorized for the duration of time that circumstances exist to justify the authorization of the emergency use of in vitro diagnostic tests for the detection of SARS-CoV-2 virus and/or diagnosis of COVID-19 infection under section 564(b)(1) of the Act, 21 U.S.C. 360bbb-3(b)(1), unless the authorization is terminated or revoked sooner. [facility] is certified under CLIA-88 as qualified to perform high complexity testing. Testing is performed in the [facility] laboratories located at [address] [place] [address]. Covid 19 Resultson SARS-CoV-2 (COVID-19) RNA ERIBERTO+probe [...] You may also be contacted by the [facility] of [facility] to see if any of your [...] or Naproxen (Aleve) can also be used. Xtvm-wdg-sijxlej cough and cold medicines can be used according to the instructions on the package. Some rkuv-jnj-ccbudpn medicines also contain acetaminophen. Make sure you [...] water are not available, use alcohol-based hand assistant broker. 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 (procedure may be cancelled if no pile driver), time to arrive, remove jewerly/piercings, insurance information, diabetes meds - patient advised to consult ordering provider, center location How to be Addressedkevin Spoken Language PreferredEnglish Stated Reason for Admission fix my nose Primary Contact Name and Numberruth- Medications Brought to Hospitalno General Health: Weight in kg114.1 kilogram(s) Weight in obg512.5 pound(s) Weight Methodactual (measured) Scale Typestanding Height in didswe21 inch(es) Patient or Family Member Reaction to Anesthesiano previous reaction Blood Avoidance/Restrictionsnone Previous Transfusion Reactionno Health Mgmt: Symptoms/Conditions Managed at Homerespiratory; HEENT (head, eyes, ears, nose, throat) Respiratory Symptoms/Conditionsdeviate d septum per pt.; sleep disordered breathing Respiratory Management StrategiesCPAP Barriers to Managing Healthnone Relationship/Environ: Lives Withspouse Living Arrangementshouse Resource/Environmental Concernsnone Anticipated Transition Tosan gabriel Services Anticipated at Transitionnone Tobacco Use: Tobacco Useno Pre-op Checklist: Arrival [id number] Arrival Time06:51 Procedure Typeseptoplasty NPOyes Last Food [id number] 19:00 ID Band On Patientpatient ID (name) [...] 07:06 by Valery Del Toro (VALENTIN) Normal [facility] CORONAVIRUS 2019, SCREEN ASY MPTOMATICon 08-21-2021 SARS-CoV-2 (COVID-19) RNA ERIBERTO+probe Ql (Unsp spec) Not detected Normal Not Detected [facility] Comment on above: Result Comment: . [...] patient management decisions. Fact sheet for providers: https://www.fda.gov/media/102502/download Fact sheet for patients: https://www.fda.gov/media/248300/download This test has received FDA Emergency Use Authorization (EUA) and has been verified by [facility] ([facility]). This test is only authorized for the duration of time that circumstances exist to justify the authorization of the emergency use of in vitro diagnostic tests for the detection of SARS-CoV-2 virus and/or diagnosis of COVID-19 infection under section 564(b)(1) of the Act, 21 U.S.C. 360bbb-3(b)(1), unless the authorization is terminated or revoked sooner. [facility] is certified under CLIA-88 as qualified to perform high complexity testing. Testing is performed in the [facility] laboratories located at [address] [place] [address]. Performed By: #### C OVSC #### [facility] [address] [place] [address] Lab Specimen Source Nasal, Nasopharyngeal Normal [facility] Comment on above: Performed By: #### C OVSC #### [facility] [address] [place] [address] Coronavirus 2019 RNA by PCR, Screening Asymptomticon [...] make patient management decisions.Fact sheet for providers: https://www.fda.gov/media/895196/downloadFact sheet for patients: https://www.fda.gov/media/039831/downloadThis test has received FDA Emergency Use Authorization (EUA) and has been verified by [facility] ([facility]). This test is only authorized for the duration of time that circumstances exist to justify the authorization of the emergency use of in vitro diagnostic tests for the detection of SARS-CoV-2 virus and/or diagnosis of COVID-19 infection under section 564(b)(1) of the Act, 21 U.S.C. 360bbb-3(b)(1), unless the authorization is terminated or revoked sooner. [facility] is certified under CLIA-88 as qualified to perform high complexity testing. Testing is performed in the [facility] laboratories located at [address] [place] [address]. Covid 19 Resultson 1 SARS-CoV-2 (COVID-19) RNA [...] You may also be contacted by the [facility] to see if any of your [...] or Naproxen (Aleve) can also be used. Zzbj-ypf-lrdrctv cough and cold medicines can be used according to the instructions on the package. Some tczv-pxu-uthplre medicines also contain acetaminophen. Make sure you [...] water are not available, use alcohol-based hand assistant broker. Avoid touching your eyes, nose, and mouth [...] 24 raul (more content not included)... Normal [facility] BASIC METABOLIC PANELon 09-2 Anion gap [Moles/Vol] 11 mmol/L Normal 10 - 20 [facility] Comment on above: Performed By: #### B MP #### [address], [place] [id number] Calcium [Mass/Vol] 9.6 mg/dL Normal 8.6 - 10.3 [facility] Comment on above: Performed By: #### B MP #### [address], [place] [id number] Chloride [Moles/Vol] 101 mmol/L Normal 98 - 107 [facility] Comment on above: Performed By: #### B MP #### [address], [place] [id number] Creatinine [Mass/Vol] 0.93 mg/dL Normal 0.50 - 1.30 [facility] Comment on above: Performed By: #### B MP #### [address] [place], [place] [id number] GFR- AM. >60 Normal >60 [facility] Comment on above: Result Comment: CALC ULATIONS OF ESTIMATED GFR ARE PERFORMED USING THE MDRD STUDY EQUATION FOR THE IDMS-TRACEABLE CREATININE METHODS. CLIN CHEM 2007;53:766-72 Performed By: #### B MP #### [address] [place], [place] [id number] GFR-NON AM. >60 Normal >60 [facility] Comment on above: Performed By: #### B MP #### [address] [place], [place] [id number] Glucose [Mass/Vol] 98 mg/dL Normal 74 - 99 [facility] Comment on above: Performed By: #### B MP #### [facility] [address] [facility] [place] [id number] HCO3 (Bld) [Moles/Vol] 28 mmol/L Normal 21 - 32 [facility] Comment on above: Performed By: #### B MP #### [facility] [address] [facility] [place] [phone] Potassium [Moles/Vol] 4.1 mmol/L Normal 3.5 - 5.3 [facility] Comment on above: Performed By: #### B MP #### [facility] [address] [place] [address] [place] [phone] Sodium [Moles/Vol] 136 mmol/L Normal 136 - 145 [facility] Comment on above: Performed By: #### B MP #### [facility] [id number] [place], [place] [address] [phone] Urea nitrogen [Mass/Vol] 18 mg/dL Normal 6 - 23 [facility] Comment on above: Performed By: #### B MP #### [facility] [address] [place], [place] [address] [phone] CBCon 08-20-2021 Erythrocyte distribution width (RBC) [Ratio] 11.6 % Normal 11.5 - 14.5 [facility] Comment on above: Performed By: #### C BC #### [facility] [address] [place], [place] [address] [phone] Hematocrit (Bld) [Volume fraction] 42.7 % Normal 41.0 - 52.0 [facility] Comment on above: Performed By: #### C BC #### [facility] [address] [facility] [place] [phone] Hemoglobin (Bld) [Mass/Vol] 14.5 g/dL Normal 13.5 - 17.5 [facility] Comment on above: Performed By: #### C BC #### [facility] [address] [place], [place] [address] [phone] MCHC (RBC) [Mass/Vol] 34.0 g/dL Normal 32.0 - 36.0 [facility] Comment on above: Performed By: #### C BC #### [facility] [address] [facility], [place] [phone] MCV (RBC) [Entitic vol] 93 fL Normal 80 - 100 [facility] Comment on above: Performed By: #### C BC #### [facility] [address] [facility], [place] [phone] Platelets (Bld) [#/Vol] 195 10*3/uL Normal 150 - 450 [facility] Comment on above: Performed By: #### C BC #### [facility] [address] [facility], [place] [id number] RBC 4.61 x10E12/L Normal 4.50 - 5.90 [facility] Comment on above: Performed By: #### C BC #### [facility] [address] [facility], [place] [phone] WBC (Bld) [#/Vol] 5.9 10*3/uL Normal 4.4 - 11.3 [facility] Comment on above: Performed By: #### C BC #### [facility] [address] [facility], [place] [id number] Laboratory - Chemistry and C hemistry - [...] Sodium [Moles/Vol] 136 mmol/L 136 - 145 [facility] Work Phone: Urea nitrogen [Mass/Vol] [...] (Bld) [#/Vol] 5.9 10*3/uL 4.4 - 11.3 [facility] Work Phone: No Panel Informationon 08-20 >60 >60 [facility] Work Phone: Comment on above: CALCULATIONS OF JOSE MATED GFR ARE PERFORMED USING THE MDRD STUDY EQUATION FOR THE IDMS-TRACEABLE CREATININE METHODS. CLIN CHEM 2007;53:766-72 [email or web address] 1:8080 [email or web address]?R etrieveTestByDateTime?Maddy nngBB=[id number]&Date=&Time=12%3a34%3a23%3a 00&TestType=ECG&Site=6&Out putType=PDF&Ext=PDF [facility] Work Phone: Sinus [...] Nasopharynx: Clear, no discharge, no masses/lesions Modified Elk Maneuver: Performed with a cotton tipped applicator, markedly improves breathing bilaterally. 'Scores and Scales' Signatures Electronically signed by : Marco Antonio Kang MD; 2021 8:41PM EST (Author) Normal [facility] Office Visit Presurgicalon 0 05-21-2021 Office Visit [...] Clinician Facility 08-21-2024 15:08-0400 Blood Pressure Location [facility] 08-21-2024 15:08-0400 Diastolic blood pressure 88 mm[Hg] [facility] 08-21-2024 15:08-0400 Heart rate 72 /min [facility] 08-21-2024 15:08-0400 Respiratory rate 16 /min [facility] 08-21-2024 15:08-0400 Systolic blood pressure 126 mm[Hg] [facility] 09-10-2022 13:00-0400 Body height 177.8 cm Giselle Walker Other [employer] Other 09-10-2022 13:00-0400 Body mass index (BMI) [Ratio] 34.29 kg/m2 Giselle Walker Other [employer] Other 09-10-2022 13:00-0400 Body temperature 98.4 [degF] Giselle Walker Other [employer] Other 09-10-2022 13:00-0400 Body weight 108.41 kg Giselle Walker Other [employer] Other 09-10-2022 13:00-0400 Respiratory rate 18 /min Giselle Walker Other [employer] Other 09-10-2022 13:00-0400 SaO2% (BldA) [Mass fraction] 97 % Giselle Aaron Other [employer] Other 11-10-2021 16:01-0500 Body height 177.8 cm Micha M Hoy Work Phone: EY-Wehxapkpxsybjo-Ef idman Work Phone: 11-10-2021 16:01-0500 Body mass index (BMI) [Ratio] 35.73 kg/m2 Micha M Hoy Work Phone: VX-Hrkjpkpeyeuvlx-Tt idman Work Phone: 11-10-2021 16:01-0500 Body surface area Derived from formula 2.29 m2 Micha M Hoy Work Phone: PI-Mmciygtaywnsvo-Gg idman Work Phone: 11-10-2021 16:01-0500 Body temperature 96.26 [degF] Micha M Hoy Work Phone: FS-Sjbklnfpvtkgqc-Wm idman Work Phone: 11-10-2021 16:01-0500 Body weight 112.95 kg Micha M Hoy Work Phone: OZ-Lccyyeojadyyfc-Ja idman Work Phone: 09-29-2021 09:26-0400 Body height 177.8 cm Micha M Hoy Work Phone: RX-Fvkocpkftunsdz-Xx idman Work Phone: 09-29-2021 09:26-0400 Body mass index (BMI) [Ratio] 36.03 kg/m2 Micha M Hoy Work Phone: KU-Yppunobfbgqyci-Pf idman Work Phone: 09-29-2021 09:26-0400 Body surface area Derived from formula 2.3 m2 Micha M Hoy Work Phone: MU-Uscdyfyfcyhsun-Fm idtiffanie Work Phone: 09-29-2021 09:26-0400 Body temperature 97.4 [degF] Micha Martinez Work Phone: SM-Zzwkpntqzhtcqi-Vq idtiffanie Work Phone: 09-29-2021 09:26-0400 Body weight 113.91 kg Micha Martinez Work Phone: EO-Cmnjibpbvzkaci-Nk idtiffanie Work Phone: 09-29-2021 09:26-0400 Respiratory rate 18 /min Micha Martinez Work Phone: YB-Oxmpuyrqdqwncs-Qz idtiffanie Work Phone: Encounters Encounter Date Encounter Type Care Provider Facility Start: 08-21-2024 ambulatory Maynor COULTER Facility :[facility] Start: 08-21-2024 End: 08-21-2024 Patient encounter procedure Maynor COULTER [facility] Start: 08-13-2024 ambulatory Maynor COULTER Facility:[facility] Start: 12-28-2022 End: 12-29-[address] MICHA MARTINEZ . Facility: Start: 12-21-2022 End: 12-22-[address] MICHA MARTINEZ . Facility:[facility] Start: 11-14-2022 Encounter for genera l adult medical examination without abnormal findings DR MICHA MARTINEZ . [facility] Start: 11-10-2022 End: 11-11-[address] MICHA MARTINEZ . Facility:[facility] Start: 11-10-2022 End: 11-11-2022 Encounter for general adult medical examination without abnormal findings DR MICHA MARTINEZ . Facility:[facility] Start: 09-10-2022 End: 09-10-2022 ambulatory Giselle Walker Other [employer] Other Start: 09-10-2022 Office outpatient vi sit 25 minutes Giselle Walker [facility] Start: 08-04-2022 End: 08-05-[address] MICHA MARTINEZ . Facility: Start: 11-10-2021 Patient encounter procedure Micha Martinez Work Phone: OX-Jbigpvwletfqda-Clxwez n Work Phone: Start: 11-10-2021 Postop follow up vis it related to original px Micha Martinez Work Phone: WW-Ypkonwuwhypjck-Bpwapm ke Work Phone: Start: 09-29-2021 Postop follow up vis it related to original px Micha Martinez Work Phone: DB-Uicxfasunabici-Frwfpj n Work Phone: Start: 09-22-2021 Chart Update Micha Martinez Work Phone: LZ-Kmqcorjsagnwkn-Bchdkd an Work Phone: Start: 08-25-2021 Chart Update Micha Martinez Work Phone: MY-Qylgtuoksdirpk-Fxpdhv an Work Phone: Procedures Date Procedure Procedure Detail Performing Clinician Start: 11-10-[address] LEON MARTINEZ . Comment on above: Performed By: #### P [facility] #### [facility] [address] [place] [address] Dr. Harika Valencia Appendectomy Maynor COULTER Colonoscopy Maynor COULTER Nasal septoplasty Maynor STEPHEN Plan of Treatment Date Care Activity Detail Author Start: 05-11-2022 FUV, Provider: Marco Antonio Kang, Status: Pen, Time: 1:15 PM FUV, Provider: Marco Antonio Kang, Status: Pen, Time: 1:15 PM VW-Wmsjqzlppwywpc-Quh dman Work Phone: Start: 11-10-2021 FUV, Provider: Marco Antonio Kang, Status: Pen, Time: 3:45 PM FUV, Provider: Marco Antonio Kang, Status: Pen, Time: 3:45 PM UN-Doefawqcpxrdrg-Unm dman Work Phone: Start: 09-22-2021 SURGWEST, Provider: Marco Antonio Kang, Status: Pen, Time: 10:00 AM [facility]ST, Provider: Marco Antonio Kang, Status: Pen, Time: 10:00 AM XM-Eohpzvggpmfspw-Hid [facility] Work Phone: Immunizations Immunization Date Immunization Notes Care Provider Fa [facility] 10-18-2021 SARS-CoV-2 (COVID-19 ) mRNA BNT-162b2 vax Maynor NILL [facility] 03-02-2021 SARS-CoV-2 (COVID-19 ) mRNA BNT-162b2 vax Maynor NILL [facility] 02-08-2021 SARS-CoV-2 (COVID-19 ) mRNA BNT-162b2 vax Maynor NILL [facility] Payers Date Payer Category Payer Unknown [id number] 2.16.84 [id number] 1965 Unknown [id number] 2.16.84 [id number] 1964 Unknown [id number] 2.16.84 [id number] 1964 Unknown [id number] 2.16.84 [id number] 1964 Unknown [id number] 2.16.8 [id number] 1964 Unknown [id number] 2.16.8 [id number] 1959 Unknown [id number] 2.16. [id number] 1959 Unknown [id number] Unknown Social History Date Type Detail Facility Sex Assigned At [facility] Start: 08-21-2024 Tobacco smoking status Never s moked tobacco (finding) [facility] Tobacco smoking status Never [facility] Functional Status Date Assessment Result Facility 08-21-2024 Functional Status N/A [facility] Evaluation note 09-10-2022 Note Date & [...] fever/discomfort , cool mist humidifier. May use [place] as needed for cough, do not take any other OTCs while using [place]. Patient to follow up with PCP in 2-3 days. Immediate eval if SOB, difficulty breathing, chest pain, dizziness, or other concerning symptoms. Patient verbalizes understanding and is agreeable to treatment plan Aug, Contact with and (suspected) exposure to covid-19 (ICD-10 - Z20.822) [employer] Other History of Present illness Narrative 09-22-2021 Note Date & Type Note Facility 09-22-2021 History of Present illness Narrative doing well. here for splint removal. STR, NVR POV surgery 09/22nasal splints removednasal swelling expectedseptum midlinenasal airway patent blcontinue saline sprays and vaseline ointment to naresRTC 4-6 weeks QB-Ltjemaowlxohtb-Qcofmud Work Phone: History of Present illness Narrative 09-22-2021 Note Date & Type Note Facility 09-22-2021 History of Present illness Narrative doing well. 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 A MaPS fine needle tip bovie electrocautery was used to perform intramural cauterization for submucous resection bilaterally. A Jackson elevator was then used to outfracture the [...] Updated: 22-Sep-2021 09:44 by Marco Antonio Kang) [facility] Clinical Note 09-22-2021 Note Date & [...] Updated: 22-Sep-2021 07:33 by Marco Antonio Kang) [facility] Evaluation + Plan note Note Date & Type Note Facility Evaluation + Plan note No data available for this section [facility] [employer] History general Narrative - Reported Note Date & Type Note Facility History general Narrative - Reported Type Surgical History deviated septum repair 2020 Hospitalization History see above [employer] Other Hospital Discharge instructions Note Date & Type Note Facility Hospital Discharge instructions No data available for this section [facility] Progress note Note Date & Type Note Facility Progress note No data available for this section [facility] Summary Purpose Family History No Family History [...] section and content) DATE CREATED AUTHOR 08/25/2021 [facility] DATE CREATED AUTHOR AUTHOR'S ORGANIZ ATION 11/13/2021 [facility] DATE CREATED AUTHOR AUTHOR'S ORGANIZ ATION 11/14/2021 [facility] DATE CREATED AUTHOR AUTHOR'S ORGANIZ ATION 01/16/2023 [facility] DATE CREATED AUTHOR AUTHOR'S ORGANIZ ATION 08/20/2024 Rigo Chong [facility] REASON FOR VISIT (unrecogniz ed section and content) SORE THROAT, EAR PAIN Patient Care team informatio n (unrecognized section and content) Personnel Name: Micha Martinez MD Address: Address: [address] [place] [address] FOR RECORDS PERTAINING TO PATIENTS WHO ARE [...] BE BASED ON THE PRIMARY CLINICAL RECORDS. [facility] [employer] provides no warranty or guarantee of the accuracy or completeness of information in this document.
[2024-10-02 07:04] VITALS: BP 144/92; PULSE 84; TEMP 36.1; O2SAT 98; BMI 34.0
[2024-10-02] MEDS: 0.9 % SODIUM CHLORIDE 500 ML 50 ML IV (07:16)
[2024-10-02 08:23] VITALS: BP 116/68; PULSE 80; TEMP 36.3; O2SAT 97
[2024-10-02 08:38] VITALS: BP 107/60; PULSE 81; TEMP 36.2; O2SAT 97
[2024-10-02 08:53] VITALS: BP 116/78; PULSE 68; TEMP 36.2; O2SAT 97
== END 2024-10-02 08:53 | disposition home or self-care (01) ==
PROVIDERS: PCP Family Medicine; Visit Provider Surgery
PROC: (CPT 812; principal; 2024-10-02 08:00)
DX: Z12.11 Encounter for screening for malignant neoplasm of colon (principal); K57.30 Diverticulosis of large intestine without perforation or abscess without bleeding; D12.5 Benign neoplasm of sigmoid colon; E11.9 Type 2 diabetes mellitus without complications; G47.33 Obstructive sleep apnea (adult) (pediatric); K76.9 Liver disease, unspecified
CPT/HCPCS: 45385

== ENCOUNTER 2024-11-11 16:44 | Outpatient (OUT) | payer OTHER, SELFPAY ==
--- NOTE | 2024-11-11 | US_ITS ---
The [address] [address] Patient Name: PASCUAL ARNOLD MRN: [id number] date: 1965 Sex: M Assigned Patient Location: US Current Patient Location: US Accession/Order Number: [id number] Exam Date: 11/11/2024 17:33 Report Date: 11/11/2024 19:06 At the request of: MICHA ADLER Procedure: US venous doppler LE RT CLINICAL DATA: Leg edema for 2 days. PROCEDURE: Right lower extremity venous duplex ultrasound. TECHNIQUE: Carrasco-scale, color flow, and waveform spectral analysis was performed of the right lower extremity. FINDINGS: The common femoral and femoral vein are compressible. The profunda femoris is compressible. The popliteal vein, gastrocnemius vein, posterior tibial vein, and peroneal veins were noncompressible. No superficial venous thrombosis was seen. US/US venous doppler LE RT IMPRESSION: 1. Deep venous thrombosis involving the popliteal vein, gastrocnemius vein, peroneal vein, and posterior tibial vein. 2. No superficial venous thrombosis. Electronically authenticated by: Patrick DEVI Date: 11/11/2024 19:06
== END 2024-11-11 16:45 | disposition home or self-care (01) ==
LOC: RAD 16:44 → US 17:27
PROVIDERS: PCP Family Medicine; Visit Provider Family Medicine
DX: R60.0 Localized edema (principal); I82.491 Acute embolism and thrombosis of other specified deep vein of right lower extremity
CPT/HCPCS: 93971

== ENCOUNTER 2025-05-21 16:50 | Outpatient (OUT) | payer OTHER, SELFPAY | END 2025-05-21 16:51 | disposition home or self-care (01) | LOC: US 16:50 | PROVIDERS: PCP Family Medicine; Visit Provider Family Medicine | DX: I82.401 Acute embolism and thrombosis of unspecified deep veins of right lower extremity (principal); I82.461 Acute embolism and thrombosis of right calf muscular vein | CPT/HCPCS: 93970 ==

== ENCOUNTER 2025-09-22 15:55 | Outpatient (OUT) | payer OTHER, SELFPAY ==
--- OUTSIDE RECORDS SUMMARY | 2025-09-22 16:00 | XMS_ITS | Patient Health Record ---
Author Organization The [facility] in [place] Address [address] [place] [address] Care Team Providers Care Strawhat Inspector And Packer Name Role Phone Adalid Adler Primary Care Provider [phone] Allergies No Known Allergies Results Component Value Reference Range Notes US venous doppler LE BI Reviewed date:11/12/2024 12:24:46 PM Interpretation: Performing Lab: Notes/Report: Source Facility: [place] [address] Ultrasound Report Signed Patient: PASCUAL MOSQUEDA MR#: [id number] : 1965 Acct:[id number] Age/Sex: 59 / M ADM Date: 11/11/24 Loc: US Attending Dr: Micha Adler M.D. Ordering Physician: Micha Adler M.D. Date of Service: 11/11/24 Procedure(s): US venous doppler LE RT Accession Number(s): [id number] cc: Micha Adler M.D. [place] [id number] Patient Name: PASCUAL MOSQUEDA MRN: [id number] date: 1965 Sex: M Assigned Patient Location: US Current Patient Location: US Accession/Order Number: [id number] Exam Date: 11/11/2024 17:33 Report Date: 11/11/2024 19:06 At the request of: MICHA ADLER Procedure: US venous doppler LE RT CLINICAL DATA: Leg edema for 2 days. PROCEDURE: Right lower extremity venous duplex ultrasound. TECHNIQUE: Carrasco-scale, color flow, and waveform spectral analysis was performed of the right lower extremity. FINDINGS: The common femoral and femoral vein are compressible. The profunda femoris is compressible. The popliteal vein, gastrocnemius vein, posterior tibial vein, and peroneal veins were noncompressible. No superficial venous thrombosis was seen. US/US venous doppler LE RT IMPRESSION: 1. Deep venous thrombosis involving the popliteal vein, gastrocnemius vein, peroneal vein, and posterior tibial vein. 2. No superficial venous thrombosis. Electronically authenticated by: Patrick BOLDEN Date: 11/11/2024 19:06 Dictated By: Patrick Bolden M.D. Signed By: 11/11/241907 DD/ 05 TD/TT: Student Development Dean: Reason For Referral No Information Medications Medication SIG (Take, Route, Frequency, Duration) Notes Start Date End Date Status Eliquis 5 MG TAKE 1 TABLET BY MOUTH TWICE A D AY; Duration: 30 Active Social History Tobacco Use: Social History Observation Description Date Details (start date - stop date) Never Smoker NA - NA Tobacco Use/Smoking Question Answer Notes Patient is a nonsmoker Alcohol Screen (Audit-C) Question Answer Notes Did you have a drink containing alcohol in the p ast year? Yes How often did you have 6 or more drinks on one occasion in the past year?Never (0 point)How many drinks did you have on a typical day when you were drinking in the past year?1 or 2 drinks (0 point)How often did you have a drink containing alcohol in the past year?Monthly (2 points)Iusmsp9HrapqilnjfkztiIepxywalMIRSA-C (Standard) Question Answer Notes Did you have a drink containing alcohol in the p ast year? No Hlnlay7AyxpbhbacjgbatLprbdatb Problems Problem Type SNOMED Code ICD Code Onset Dates Problem Status W/U Status Risk Notes Problem Fatty liver (603703217) Fatty liver (K76. 0) ActiveconfirmedProblemWell adult (837648225)Well adult (Z00.00)Activeconfirmed ProblemEdema (586286370)Leg edema, right (R60.0)ActiveconfirmedProblemDeep venous thrombosis of lower extremity (141004523)DVT (deep venous thrombosis), right (I82.401)ActiveconfirmedProblemAcute sinusitis (42713236)Acute sinus infection (J01.90)ActiveconfirmedProblemType II diabetes mellitus without complication (307141603)Diabetes (E11.9)Activeconfirmed Vital Signs Temperature 97.8 degrees Fahrenheit 05/29/2025 Blood pressure odlqfpqkp82 mm Hg09/22/20252577Otpypf93 in09/22/2025lood pressure bitpozde850 mm Hg09/22/20259540Dullaq383 lbs1MI34.15 kg/m209/22/2025 Procedures Procedure Date Ordered Date Performed Result Body Sit e Colonoscopy 10/02/2024 undefined Encounters Encounter Location Date Provider Diagnosis [facility] [address] [place] [facility] [place] [address] 11/12/2024 Adalid Hoy [facility] [place] [address] 12/02/2024Doug [facility] [place] [facility] [place] [address]/08/2025Doug HoyLeg edema, right R60.0[facility] [place] [facility] [place] [address]/Doug [place] [address] [facility] [address]/ Adalid HoyDVT (deep venous thrombosis), right I82.401[facility] [place] [facility] [place] [address]/oug HoyLeg edema, right R60.0[facility] [place] [facility] [place] [address]/Doug HoyDVT (deep venous thrombosis), right I82.401[facility] [place] [facility] [place] [address]/01/2025 Adalid HoyAcute non-recurrent sinusitis, unspecified location J01.90 and Nasal congestion R09.81[facility] [place] [address]/27/2025Doug Elmer adult Z00.00 Assessments Encounter Date Diagnosis (ICD Code) Assessment Notes Treatment Notes Treatment Clinical Notes Section Notes 11/11/2024 Leg edema, right (ICD-10 - R60.0 ) 12/09/2024DVT (deep venous thrombosis), right (ICD-10 - I82.401)5Acute non-recurrent sinusitis, unspecified location (ICD-10 - J01.90)Rest and drink more liquids, especially water. You may use a humidifier or vaporizer to help keep the drainage moist. Vnog-mwf-oxppgtq Nasal Saline may help the stuffy and runny nose. Use Ibuprofen and or Tylenol as needed for fever, chills, body aches or pain. Children 5 years old should not be given eshe-gzb-mecjfhr cough and cold medications such as guaifenesin and dextromethorphan. If you're over age 5, you may try yghe-kbf-bxtsull cold medications such as guaifenesin and dextromethorphan, or multi-symptom cold reliever such as Dayquil to help reduce the symptoms. Antibiotics have been prescribed. You should take these until completed and follow the directions. Antibiotics can sometimescause upset stomach, and in rare cases, serious allergic reactions or serious gastrointestinal problems. If you start having severe abdominal pain, severe vomiting, or bloody diarrhea, you should be reevaluated by your physician or urgent care immediately. Follow up with your Primary Care Provider or return to clinic if symptoms do not improve within 3-5 days09/22/2025Well adult (ICD-10 - Z00.00)03/06/2025Leg edema, right (ICD-10 - R60.0)05/13/2025DVT (deep venous thrombosis), right (ICD-10 - I82.401)05/29/2025Nasal congestion (ICD-10 - R09.81) Plan Of Treatment Pending Test Test Name Order Date CMP (COMPLETE METABOLIC PANEL) 3 CMP (COMPLETE METABOLIC PANEL) 4 HEMOGLOBIN A1C (GLYCO) 08/12/2024 HEMOGLOBIN A1C (GLYCO) 11/06/2023 HEMOGLOBIN A1C (GLYCO) 09/22/2025 INSULIN, TOTAL 11/06/2023 INSULIN, TOTAL 08/12/2024 LIPID PANEL (CHOL/TRIG/HDL/LDL) 08/12/20 24 LIPID PANEL (CHOL/TRIG/HDL/LDL) 09/22/20 25 LIPID PANEL (CHOL/TRIG/HDL/LDL) 11/06/20 23 CBC WITH DIFF 11/06/2023 CBC WITH DIFF 08/12/2024 PSA, PROSTATE-SPECIFIC ANTIGEN 3 URIC ACID 09/22/2025 URIC ACID 08/12/2024 PSA, TOTAL 08/12/2024 US SUSAN DOP LEG RT 11/11/2024 THYROID PANEL (T4/TSH/FREE T3) 4 THYROID PANEL (T4/TSH/FREE T3) 5 THYROID PANEL (T4/TSH/FREE T3) 3 US venous doppler LE BI 05/13/2025 PSA, SCREENING 09/22/2025 CMP (COMP MET HERNANDEZ) w/eGFR CKD-EPI 2024 CBC WITH DIFF 09/22/2025 Next Appt Details Provider Name:Adalid Adler, 11:00:00 AM, [address] [place], [address], Insurance Providers Payer Name Payer Address Payer Phone Subscriber Number Group Number Insured Name Patient Relationship to Insured Coverage Start Date Coverage End Date [employer] [address] [address] [place] [address] [id number] Sandra Mosquedaelf - patient is the insured Medical (General) History Medical History History ICD Code Diabetes mellitus E11.9 COVID-19 U07.1 Deviated septum J34.2 Hypertrophy 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
--- OUTSIDE RECORDS SUMMARY | 2025-09-22 16:00 | XMS_ITS | Clinical Summary ---
Author Organization [facility] Address [address] [place] [address] Phone Care Team Providers Care Solution Mixer Name Role Phone Victor Hugo Martinez MD Primary Care Provider [phone] Social History Tobacco UseTypesPacks/DayYears UsedDateSmoking Tobacco: Never AssessedSex and Gender InformationValueDate RecordedSex Assigned at BirthNot on fileLegal Sex Male10/21/2022 2:53 PM ESTGender IdentityNot on fileSexual OrientationNot on file Last Filed Vital Signs Vital SignReadingTime TakenCommentsBlood Pressure--Txsmd026209/22/2021 7:31 AM EDT Vpmgctsayqe86.7 ??C (96.3 ??F)11/10/2021 4:01 PM ESTRespiratory Wenh601711/29/2020 9:26 AM EDTOxygen Saturation--Inhaled Oxygen Concentration--Fnwxgj179 kg (249 lb)11/10/2021 4:01 PM OJTIxqkak292.8 cm (5' 10 )11/10/2021 4:01 PM ESTBody Mass Index35.7311/10/2021 4:01 PM EST Plan of Treatment Not on file Care Teams Team MemberRelationshipSpecialtyStart DateEnd Date Victor Hugo Martinez MD [address] [facility] [place] [address] PCP - General11/27/17
--- OUTSIDE RECORDS SUMMARY | 2025-09-22 16:00 | XMS_ITS | Clinical Summary ---
Author Organization [facility] Address [id number] [place] [address] Care Team Providers Care Heavy Mobile Equipment Repairer Name Role Phone Unavailable Primary Care Provider Unavailabl e Social History Tobacco UseTypesPacks/DayYears UsedDateSmoking Tobacco: Never AssessedChildcare AnswerDate FsgboxibXeottolewFjuutxn80/12/2019EmploymentAnswerDate Recorded TkucpwswvkClgfhix37/12/2019Sex and Gender InformationValueDate RecordedSex Assigned at BirthNot on fileLegal MebAfgm7101/07/2016 12:07 PM ESTGender Identity Not on fileSexual OrientationNot on file Plan of Treatment Not on file Medical Devices Not on file
--- OUTSIDE RECORDS SUMMARY | 2025-09-22 16:00 | XMS_ITS | Clinical Summary ---
Author Organization [facility] Address [address] [place] [address] Care Team Providers Care Clinical Pharmacy Technician Name Role Phone Unavailable Primary Care Provider Unavailabl e Social History Tobacco UseTypesPacks/DayYears UsedDateSmoking Tobacco: Never AssessedSex and Gender InformationValueDate RecordedSex Assigned at BirthNot on fileLegal Sex Male02/08/2023 7:07 PM EDTGender IdentityNot on fileSexual OrientationNot on file Last Filed Vital Signs Vital SignReadingTime TakenCommentsBlood Daionxmq128/7705 12:00 PM EDT Pulse--Temperature--Respiratory Rate--Oxygen Saturation--Inhaled Oxygen Concentration--Rkdtuo119 kg (254 lb)04/12/2021 12:00 PM BWAEdvmbe191.8 cm (5' 10 )04/12/2021 12:00 PM EDTBody Mass Index36.45004/12/2021 12:00 PM EDT Plan of Treatment Not on file
[2025-09-22 16:13] LABS: Hematocrit 44.5 % (42.0-54.0); Hemoglobin 15.6 g/dL (14.0-18.0); Immature Granulocytes Abs Auto 0.01 10^3/uL (0.00-0.03); Immature Granulocytes Pct Auto 0.2 % (0.0-0.5); Lymphocytes Absolute Auto 2.0 10^3/uL (1.2-3.8); Mean Corpuscular HGB Conc 35.1 g/dL (29.9-35.2); Mean Corpuscular Hemoglobin 32.8 pg (25.9-34.0); Mean Corpuscular Volume 93.7 fL (80.0-94.0); Platelet Count 182 10^3/uL (150-450); Red Blood Count 4.75 10^6/uL (4.70-6.10); White Blood Count 5.8 10^3/uL (4.0-11.0)
[2025-09-22 16:47] LABS: Alanine Aminotransferase 95 U/L (16-63); Albumin Globulin Ratio 1.1; Albumin Level 4.3 g/dL (3.4-5.0); Alkaline Phosphatase 49 U/L (46-116); Anion Gap 14.0; Aspartate Amino Transferase 44 U/L (15-37); Blood Urea Nitrogen 18.0 mg/dL (7.0-18.0); Calcium 9.1 mg/dL (8.5-10.1); Carbon Dioxide 28.4 mmol/L (21.0-32.0); Chloride 101 mmol/L (98-107); Cholesterol 207 mg/dL (<=200); Estimated GFR (African America >60 (>=60 mL/min/1.73m^2); Estimated GFR (Non-African Ame >60 (>=60 mL/min/1.73m^2); Free T3 2.72 pg/mL (2.18-3.98); Globulin 3.9 g/dL; Glucose 86 mg/dL (74-106); HDL Cholesterol 53 mg/dL (40-60); Potassium 4.4 mmol/L (3.5-5.1); Sodium 139 mmol/L (136-145); Thyroid Stimulating Hormone 2.116 uIU/mL (0.358-3.740); Total Protein 8.2 g/dL (6.4-8.2); Triglycerides 79 mg/dL (<=150); Uric Acid 6.2 mg/dL (3.5-7.2); VLDL CHOLESTEROL 15.8 mg/dL
== END 2025-09-22 15:56 | disposition home or self-care (01) ==
PROVIDERS: PCP Family Medicine; Visit Provider Family Medicine
DX: Z00.00 Encounter for general adult medical examination without abnormal findings (principal); Z12.5 Encounter for screening for malignant neoplasm of prostate
CPT/HCPCS: 36415; 80053; 80061; 83036; 84436; 84443; 84481; 84550; 85025; G0103